=== PATIENT | female | born 1950 | race Caucasian/White ===

== ENCOUNTER → 2017-08-18 | Outpatient (CLI) | payer MEDICARE ==
[~2017-08-18] MED LIST: ALBUTEROL SULF8.5 GM; ALBUTEROL0.63 MG/3; ALBUTEROL2.5 MG/3 M INH; ALDACTONE25 MG PO; AMBIEN5 MG PO; AMIODARONE HCL200 MG PO; AMLODIPINE BESYL5 MG PO; ASPIR 8181 MG PO; ASPIRIN81 MG PO; AUGMENTIN 875-1 EACH PO; BACTRIM DS TAB1 EACH PO; CEFDINIR125 MG/5 M; CEFTIN250 MG PO; CEFTIN250 MG/5 M PO; COLON CLENZ; COREG12.5 MG PO; COREG25 MG PO; DICYCLOMINE HCL20 MG PO; DOXAZOSIN MESYLA4 MG PO; ELIQUIS PO; FUROSEMIDE40 MG PO; HYDRALAZINE HCL25 MG PO; HYDROCHLOROTHIA25 MG PO; HYDROCODON-ACE1 EA11 PO; IMDUR60 MG PO; ISOSORBIDE MONO20 MG PO; LACTULOSE20 GM/30 M PO; LASIX40 MG PO; LEVAQUIN250 MG PO; LEVOFLOXACIN500 MG PO; LIPITOR20 MG PO; LISINOPRIL10 MG PO; LISINOPRIL5 MG PO; MECLIZINE HCL12.5 MG PO; MELATONIN3 MG PO; METOLAZONE5 MG PO; METOPROLOL TAR100 MG PO; MINOCYCLINE HC100 M1 PO; NICODERM CQ1 EAC1 TOP; OS-CAL 500+D T1 EACH PO; PANTOPRAZOLE SO40 MG PO; PHENERGAN PO; PLAVIX75 MG PO; PREDNISONE10 MG PO; PREDNISONE20 MG PO; PROAIR HFA INH8.5 GM INH; RENAGEL800 MG PO; RENAL CAPS SOFTG1 MG PO; RENAL VITAMIN PO; RENVELA0.8 GM PO; SENNA LAX8.6 MG PO; SENNA PLUS TAB1 EACH PO; SIMVASTATIN40 MG PO; SPIRIVA18 MCG INH; SUCRALFATE1 GM PO; SYMBICORT 16010.2 GM; TRAZODONE HCL50 MG PO; TRIPHROCAPS SOFT1 MG PO; TUSSICAPS PO; TYLENOL WITH C1 EACH PO; ULTRAM50 MG PO; WARFARIN SODIUM1 MG PO; XOPENEX HFA15 GM NEB; ZOFRAN ODT4 MG PO; [UNRECOGNIZED DRUG - CODE] INH; zofran PO
--- NOTE | 2017-08-18 14:52 | Diagnostic Imaging Report ---
PROCEDURE: Frontal and lateral views of the chest. COMPARISON: CT, CT CHEST WO, 06/10/2015, 17:54. [facility], DX, CHEST SINGLE (PORTABLE), 07/06/2016, 5:26. INDICATIONS: CHEST TIGHTNESS, COUGH FINDINGS: Lines/tubes: None. In the lower lateral left hemithorax with pacemaker lead projecting on the mid sternum on the lateral view, unchanged in position. Lungs: Interval decrease in bilateral patchy airspace disease. Underlying diffuse coarsening of the pulmonary interstitium associated with mild patchy groundglass density is again observed. Pleura: Small right pleural effusion has decreased since the prior examination. There is no pneumothorax. Heart and mediastinum: The cardiac silhouette is mildly enlarged. Median sternotomy wires again observed. Bones: No acute bony abnormality. IMPRESSION: 1. Diffuse coarsening of the pulmonary interstitium suggestive of interstitial lung disease. Mild diffuse patchy groundglass density may represent superimposed pulmonary edema. Sae Hill M.D. Dictated by: Sae Hill M.D. on 08/18/2017 at 14:53 Electronically approved by: Sae Hill M.D. on 08/18/2017 at 14:53
== END ==
LOC: RAD 14:03
PROVIDERS: ATTEND Internal Medicine
DX: R05 Cough (principal)
CPT/HCPCS: 71046

== ENCOUNTER 2017-08-21 20:22 | Inpatient (IN) | payer MEDICARE ==
[~2017-08-21] VITALS: Ht 170.2 cm; Wt 54.4 kg
[~2017-08-21 20:22] MED LIST changes: -CEFDINIR125 MG/5 M; -CEFTIN250 MG/5 M PO; -FUROSEMIDE40 MG PO; -SYMBICORT 16010.2 GM
--- OUTSIDE RECORDS SUMMARY | 2017-08-21 20:26 | XMS REPORT ---
[facility] Address Unknown Phone Unavailable Care Team Providers Care Pbx Teacher Name Role Phone DENNY MONTEMAYOR Unavailable Unavailable Problems This patient has no known problems. Allergies, Adverse Reactions, Alerts This patient has no known allergies or adverse reactions. Medications This patient has no known medications. Results Test Description Test Time Test Comments Text Results Atomic Results Result Comments CHEST 2 VIEWS [place] [address] Patient Name: PAO ARAIZA MR #: [id number] : 1950 Age/Sex: 67/F Req #: [id number] Adm Physician: Ordered by: DENNY MONTEMAYOR MD Report #: [id number] Location: RAD Room/Bed: Procedure: [id number] DX/CHEST 2 VIEWS Exam Date: 08/18/17 Exam Time: 1415 REPORT STATUS: Signed PROCEDURE: Frontal and lateral views of the chest. COMPARISON: CT, CT CHEST WO, 06/10/2015, 17:54. [facility], DX, CHEST SINGLE (PORTABLE), 07/06/2016, 5:26. INDICATIONS: CHEST TIGHTNESS, COUGH FINDINGS: Lines/tubes: None. In the lower lateral left hemithorax with pacemaker lead projecting on the mid sternum on the lateral view, unchanged in position. Lungs: Interval decrease in bilateral patchy airspace disease. Underlying diffuse coarsening of the pulmonary interstitium associated with mild patchy groundglass density is again observed. Pleura: Small right pleural effusion has decreased since the prior examination. There is no pneumothorax. Heart and mediastinum: The cardiac silhouette is mildly enlarged. Median sternotomy wires again observed. Bones: No acute bony abnormality. IMPRESSION: 1. Diffuse coarsening of the pulmonary interstitium suggestive of interstitial lung disease. Mild diffuse patchy groundglass density may represent superimposed pulmonary edema. Sae Valadez M.D. Dictated by: Sae Valadez M.D. on 08/18/2017 at 14:53 Electronically approved by: Sae Valadez M.D. on 08/18/2017 at 14:53 Dictated By: CONCEPCIÓN VALADEZ MD, MD [id number] COPY TO: DENNY MONTEMAYOR MD
[2017-08-21] MEDS ORDERED: MECLIZINE HCL12.5 MG PO (21:14)
[2017-08-21] MEDS ORDERED: MELATONIN3 MG PO (21:14)
[2017-08-21] MEDS ORDERED: PANTOPRAZOLE SO40 MG PO (21:14)
[2017-08-21] MEDS ORDERED: FUROSEMIDE40 MG PO (21:14)
[2017-08-21] MEDS ORDERED: CEFDINIR125 MG/5 M (21:14)
[2017-08-21] MEDS ORDERED: SPIRIVA18 MCG INH (21:14)
[2017-08-21] MEDS ORDERED: SYMBICORT 16010.2 GM (21:14)
[2017-08-21] MEDS ORDERED: ALBUTEROL/IPRATROPIUM 3 ML NEB NEB ONE (21:15)
[2017-08-21] MEDS ORDERED: AZITHROMYCIN 500MG/NS 250 ML 250 ML IV ONE (22:00)
[2017-08-21] MEDS ORDERED: CEFTRIAXONE SOD 1 GM VIAL IV ONE (22:00)
[2017-08-21] MEDS ORDERED: ACETAMINOPHEN 325 MG TAB PO ONE (22:30)
[2017-08-21] MEDS ORDERED: METHYLPREDNISOLONE SOD SUCC 125 MG/2ML VIAL IV ONE (22:30)
[2017-08-21] MEDS ORDERED: AZITHROMYCIN 500MG/NS 250 ML 250 ML IV SCH (23:00)
[2017-08-21 23:50] VITALS: BP 146/61
[2017-08-22 01:46] VITALS: BP 146/61
[2017-08-22] MEDS: ALBUTEROL/IPRATROPIUM 3 ML NEB NEB SCH ×5 (02:30→20:15)
[2017-08-22 05:59] LABS: BASOPHILS % 0.2 % (0.0-1.0); HEMATOCRIT 26.2 % (34.2-44.1); HEMOGLOBIN 8.6 g/dL (12.0-16.0); LYMPHOCYTES # (AUTO) 0.2 (1.0-3.2); LYMPHOCYTES % 5.4 % (18.0-39.1); MEAN CORPUSCULAR HEMOGLOBIN 31.4 pg (28-32); MEAN CORPUSCULAR HGB CONC 32.8 g/dL (31-35); MEAN CORPUSCULAR VOLUME 95.6 fL (81-99); MONOCYTES # (AUTO) 0.2 (0.2-0.8); MONOCYTES % 3.7 % (4.4-11.3); NEUTROPHILS # (AUTO) 3.7 (2.1-6.9); NEUTROPHILS % 90.2 % (38.7-80.0); PLATELET COUNT 118 x10e3/uL (140-360); RED BLOOD COUNT 2.74 x10e6/uL (3.6-5.1); RED CELL DISTRIBUTION WIDTH 16.7 % (11.7-14.4)
[2017-08-22] MEDS ORDERED: METHYLPREDNISOLONE SOD SUCC 125 MG/2ML VIAL IV SCH (06:00)
[2017-08-22 06:05] VITALS: BP 150/64
[2017-08-22 06:16] LABS: ANION GAP 17.9 mmol/L (8-16); CALCIUM 9.1 mg/dL (8.4-10.2); CREATININE, SERUM 4.28 mg/dL (0.57-1.11); POTASSIUM 3.9 mmol/L (3.5-5.1)
[2017-08-22 10:00] VITALS: BP 150/64
[2017-08-22 12:00] VITALS: BP 138/54
[2017-08-22] MEDS: MECLIZINE HCL 12.5 MG TAB PO SCH ×2 (14:19→21:18)
[2017-08-22] MEDS: AMIODARONE HCL 200 MG TAB PO SCH (14:19)
[2017-08-22] MEDS: HYDRALAZINE HCL 25 MG TAB PO SCH ×2 (14:19→21:18)
[2017-08-22] MEDS: AMLODIPINE BESYLATE 5 MG TAB PO SCH (14:20)
--- NOTE | 2017-08-22 14:29 | Diagnostic Imaging Report ---
EXAMINATION: CHEST SINGLE (NOT PORTABLE) INDICATION: CHF. COPD exacerbation. COMPARISON: 07/06/16. FINDINGS: TUBES and LINES: None. Left-sided AICD, unchanged. LUNGS: Diffuse bilateral patchy airspace disease is observed, unchanged. PLEURA: No pneumothorax. Bilateral small pleural effusions, unchanged. HEART AND MEDIASTINUM: The cardiac silhouette remains enlarged. Median sternotomy wires. BONES AND SOFT TISSUES: No acute osseous lesion. Soft tissues are unremarkable. UPPER ABDOMEN: No free air under the diaphragm. IMPRESSION: No significant interval change in bilateral airspace disease suggestive of pulmonary edema with possible superimposed infection in the proper clinical setting. Signed by: Dr. Sae Hill M.D. on 08/22/2017 2:25 PM
[2017-08-22] MEDS ORDERED: BUDESONIDE/FORMOTEROL 160/4.5MCG INHALER INH SCH (15:00)
[2017-08-22 16:00] VITALS: BP 142/62
[2017-08-22] MEDS ORDERED: INSULIN REGULAR, HUMAN 100 UNIT/1 ML 3ML VIAL SQ SCH (16:30)
[2017-08-22] MEDS: CARVEDILOL 12.5 MG TAB PO SCH (17:03)
[2017-08-22] MEDS: SEVELAMER CARBONATE 800 MG TAB PO SCH (17:03)
--- NOTE | 2017-08-22 17:36 | Consultation ---
DATE OF CONSULTATION: August 22, 2017 PULMONARY MEDICINE CONSULTATION REFERRING PHYSICIAN: Dr. Pyle REASON FOR REFERRAL: Persistent abnormal chest radiography. HISTORY: Ms. Carrillo is a pleasant, 67-year-old female with persistent chest x-ray abnormalities. The patient presented to the emergency room on August 21, 2017. The patient complained of shortness of breath. The patient was having an outpatient evaluation which included x-rays showing possible fluid overload and possible pneumonia. The patient has recently been getting dialysis. She has chronic debilities getting dialysis more than 3 times a week when needed. The patient recently has not been able to get her fluid pulled off to dry weight over the last couple of weeks as well as she is having chronic difficulty getting dialysis more than once a week due to exquisite pain. At this point, the patient had chest x-ray showing fluid overload plus possible pneumonia pattern. She is admitted. Patient is on chronic home oxygen at 2 L per minute via nasal cannula. Patient is actively smoking. There is no history of any asthma. There are allergy symptoms on 50% of days. Home breathing medications include nebulizer, Spiriva, Atrovent possibly. Patient's exercise tolerance is 2 to 3 homes' distance where she is limited by leg exhaustion. She gets out of the house about 4 days a week. Patient with BNP level a couple of months ago greater than 5000, although BNP level is not repeated this time. I am consulted due to persistence of opacities and failure of outpatient therapy. PAST MEDICAL HISTORY 1. Chronic systolic and diastolic heart failure. 2. May 26, 2016, echo with 30% to 35% LVEF, aortic valve area 1.9 cm sq, bioprosthetic MVR well seated, RVSP 54 mmHg, IVC with poor inspiratory collapse. 3. End-stage renal disease on hemodialysis for 2 years. 4. Pulmonary hypertension. 5. Atrial fibrillation. 6. Hypertension. 7. Anemia secondary to CKD. 8. COPD. 9. Peripheral vascular disease. 10. Osteoporosis. 11. Major depressive disorder. 12. 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 13. AICD placement to left flank. 14. Lumbar spine surgery. 15. Renal artery stent placement. 16. Coronary artery stents in 2009. 17. Right heart catheterization at some point. SOCIAL HISTORY: She is and lives with her . 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 No alcohol. No drugs. She smoked from age 14 to age 67 one-half pack per day. FAMILY HISTORY: Noncontributory to this. REVIEW OF SYSTEMS GENERAL: No weight changes, although she is underweight. HEENT: No dry mouth. IMMUNOLOGIC: No lupus. No connective tissue disease. PULMONARY: No hemoptysis. CARDIOVASCULAR: No recent PA. GI: No constipation. : No blood in the urine. PSYCHIATRIC: No bipolar known. MUSCULOSKELETAL: Mild arthritis. NEUROLOGIC: No seizures. DERMATOLOGIC: No rash. PHYSICAL EXAMINATION VITALS: Afebrile. Vital signs noted per electronic record. GENERAL: No acute distress. Alert and calm. HEENT: Normocephalic and atraumatic. NECK: Supple. Throat is midline. LUNGS: Bilateral air entry, a few rhonchi and a few rales, no discrete wheezes, moderate to good air entry. CARDIOVASCULAR: S1 and S2. No murmurs, rubs or gallops. ABDOMEN: Soft and nontender. EXTREMITIES: No clubbing. No cyanosis. There is no edema. INTEGUMENT: No rash. No purpura. LABS: 3.9 potassium, 26 BUN, creatinine 4.3, 29 bicarbonate, 4.0 white count, 26 hematocrit, 118 platelets. IMPRESSION AND PLAN 1. Abnormal chest radiography, fluid overload. 2. Abnormal chest radiography, possible pneumonia. 3. Reported chronic obstructive pulmonary disease with exacerbation. 4. Reported pulmonary hypertension. This is also suggested by echocardiogram in the past. The patient's pulmonary hypertension may be multifactorial. 5. History of bioprosthetic mitral valve replacement. 6. End-stage renal disease. 7. Atrial fibrillation. 8. Hypertension. 9. Peripheral vascular disease. 10. History of cerebrovascular accident in June 2013. 11. Moderate allergies. 12. Other history as above. Agree to admit her. Nephrology to discuss with the patient ways to maximize fluid negative balance. Get her back to dry weight as feasible. I need to discuss with the patient as she does not recall who is following the pulmonary hypertension as she may be required for right heart catheterization or repeat echocardiogram. Patient is recommended for smoking cessation as feasible. Continue some bronchodilators at this time. It would be useful to have her PFTs with her complex cardiopulmonary condition. However, she says her last PFTs were at [facility]. Will follow up closely. I thank you very much, Dr. Pyle and Dr. Goodman, for allowing me the chance to participate in the care of Ms. Carrillo. Do not hesitate to contact me if I can help in any way. Job#: [id number]
[2017-08-22] MEDS ORDERED: EPOETIN ALFA 10000 UNIT/ML VIAL SC ONE (19:00)
--- NOTE | 2017-08-22 19:05 | History and Physical ---
HISTORY OF PRESENT ILLNESS: This is a 67-year-old female with past medical history positive for end-stage renal disease on dialysis, history of CHF, history of anemia of chronic disease, history of implantable cardiac defibrillator, and history of aortic valve replacement, which is a porcine aortic valve replacement according to the patient. She came to the emergency room complaining of increasing episodes of shortness of breath, cough and fever. She was diagnosed with pneumonia and admitted to the hospital. Also, she was diagnosed with CHF. REVIEW OF SYSTEMS CARDIOVASCULAR: No chest pain or palpitations. RESPIRATORY: She did have shortness of breath, which has resolved. She had severe cough. She did have fever. GENITOURINARY: No urinary frequency and no dysuria. GASTROINTESTINAL: No nausea, vomiting or diarrhea. ALLERGIES: ALLERGIC TO DILAUDID, MORPHINE, LORAZEPAM. PAST MEDICAL HISTORY 1. End-stage renal disease on dialysis. 2. History of chronic systolic CHF. 3. History of anemia of chronic disease. 4. Status post implantable cardiac defibrillator. 5. History of COPD. 6. History of porcine aortic valve replacement. PHYSICAL EXAMINATION VITAL SIGNS: Blood pressure 138/54, temperature 98.9, heart rate 91 per minute, respiratory rate 21 per minute. Oxygen saturation 97%. HEART: Regular rhythm. Normal S1 and S2 sounds. LUNGS: Clear bilaterally. ABDOMEN: Soft. EXTREMITIES: No evidence of cyanosis, edema or trauma. LABORATORY DATA: On the blood work, we have BMP with sodium 137, potassium 3.9, chloride 94, CO2 29, BUN 26, creatinine 4.28, glucose 331. On the CBC, white blood count 4.05, hemoglobin 8.6, hematocrit 26.2, platelet count 118,000. Chest x-ray was done in the emergency room. The preliminary report shows bilateral CHF and possible pneumonia. The EKG was done and showed normal sinus rhythm. No evidence of any ST-segment elevation or depression. She has T-wave inversions in aVL, V1 and V2. FINAL IMPRESSION 1. Pneumonia. 2. Kppcr-[id number]-[id number] chronic congestive heart failure. 3. Chronic obstructive pulmonary disease exacerbation. 4. End-stage renal disease on dialysis. 5. Anemia of chronic disease. 6. Status post implantable cardiac defibrillator. 7. Aortic stenosis status post aortic valve replacement with a porcine aortic valve. PLAN OF TREATMENT: Continue albuterol and Atrovent q.4 h., Zithromax 250 mg IV piggyback daily, ceftriaxone 1 gram IV piggyback daily, methylprednisolone 60 mg IV q.8 h. We are going to resume all the home medications that she has been taking, which include Tylenol No. 3 one tablet every 4 hours as needed for pain or fever. Continue amiodarone 100 mg twice a day, amlodipine 5 mg twice a day, Lipitor 20 mg daily, Symbicort 150 per 4.5 mcg 1 inhalation twice a day. Continue with furosemide 40 mg daily, hydralazine 50 mg 3 times a day, isosorbide mononitrate 60 mg daily, meclizine 12.5 mg 3 times a day as needed, melatonin 3 mg at bedtime. We are going to discontinue the Solu-Medrol because the patient is already on prednisone, plus we do not want to get too much fluid in this patient who already has end-stage renal disease. Continue Protonix 40 mg daily, prednisone 40 mg daily, Renvela 800 mg 3 times a day, Spiriva 1 inhalation daily, trazodone 100 mg at bedtime, Coreg 25 mg twice a day, folic acid, vitamin B and C complex 1 tablet daily. Consultations are going to be the following: Dr. Prakash for cardiology who is her jockey valet, Dr. Bryson who is her shipper and receiving, and Dr. Mauricio Pappas, maintenance team leader. We will order an EKG, troponins q.8 h. times 3, and a chest x-ray also. Job#: [id number]
[2017-08-22 19:15] VITALS: BP 134/57
[2017-08-22] MEDS: AZITHROMYCIN 500MG/NS 250 ML 250 ML IV SCH (21:18)
[2017-08-22] MEDS: ATORVASTATIN 20 MG TAB PO SCH (21:18)
[2017-08-22] MEDS: MELATONIN 3 MG TAB PO SCH (21:18)
[2017-08-22] MEDS: INSULIN REGULAR, HUMAN 100 UNIT/1 ML 3ML VIAL SQ SCH (21:18)
[2017-08-22] MEDS: TRAZODONE HCL 50 MG TAB PO SCH (21:18)
--- NOTE | 2017-08-22 22:43 | Consultation ---
DATE OF CONSULTATION: August 22, 2017 REASON FOR CONSULT: ESRD. This is a 67-year-old female with multiple admissions, who was admitted with shortness of breath. The patient's chest x-ray demonstrated possible pneumonia. Last dialysis was on Wednesday. Chest x-ray also demonstrated increased fluid. Patient is on home O2 at 2 L. PAST MEDICAL HISTORY 1. Chronic systolic and diastolic heart failure. 2. Echocardiogram, EF 30%-35% left ventricular ejection fraction, aortic valve area 1.9. 3. ESRD, on dialysis at [facility] for last 2 years. 4. Atrial fibrillation. 5. Pulmonary hypertension. 6. COPD. 7. Anemia of chronic disease. 8. Osteoporosis. 9. Peripheral vascular disease. 10. Depression. 11. Renal artery stent placement. 12. Lumbar spine surgery. 13. AICD placement. 14. CVA in June 2013. 15. CAD, stent, 2009. SOCIAL HISTORY: Lives with her . Retired for 20 years. No drugs. FAMILY HISTORY: Noncontributory. REVIEW OF SYSTEMS: No nausea, no vomiting, no constipation, no diarrhea, cough, no shortness of breath, no chest pain, no blood in stool, no burning in the urine. Basically otherwise negative. PHYSICAL EXAM VITAL SIGNS: Afebrile. HEENT: Pupils equal, react to light and accommodation. LUNGS: Decreased air entry. No rales, no rhonchi, no wheezes. CARDIAC: Regular rate and rhythm. No S3, S4. ABDOMEN: Nontender, nondistended. No hepatomegaly, splenomegaly. EXTREMITIES: No cyanosis, clubbing, edema. LABS: Creatinine 4.3, bicarbonate 29. White cell 4, hematocrit 26. ASSESSMENT AND PLAN 1. Anemia of chronic disease. Will start the patient on Epogen and IV dialysis. 2. End-stage renal disease with fluid overload. Will ultrafiltrate her tomorrow then dialyze her per schedule. 3. Chronic obstructive pulmonary disease. Continue following with Dr. Lindsay. 4. Pulmonary hypertension. No changes. 5. Atrial fibrillation. Currently stable. No rales, no tachycardia. Job#: [id number] CQ
[2017-08-22] MEDS ORDERED: CEFTRIAXONE SOD 1 GM VIAL IV SCH (23:00)
[2017-08-23] VITALS (10 sets, daily range): BP systolic 114–158; BP diastolic 51–91
[2017-08-23] MEDS: ALBUTEROL/IPRATROPIUM 3 ML NEB NEB SCH ×7 (00:15→23:00)
[2017-08-23] MEDS: ASPIRIN 81 MG CHEW TAB PO SCH ×2 (04:45→18:58)
--- NOTE | 2017-08-23 05:21 | Consultation ---
DATE OF CONSULTATION: August 23, 2017 CARDIOLOGY CONSULTATION REASON FOR CONSULTATION: Shortness of breath. HISTORY OF PRESENT ILLNESS: Ms. Carrillo is a pleasant 67-year-old woman known to our service. Followed in the clinic by Dr. Prakash. She has a history significant for end-stage renal disease, chronic systolic heart failure, anemia of chronic disease, COPD, status post ICD, status post mitral prosthetic valve replacement, paroxysmal atrial fibrillation, on anticoagulation with Eliquis, and renal stenosis, status post prior stents, carotid disease, status post right carotid stent. She presents with worsening shortness of breath. Findings concerning for pneumonia. She is admitted for antibiotic therapy. REVIEW OF SYSTEMS: A 12-system reviewed and negative except for as noted above. ALLERGIES: HYDROMORPHONE, LORAZEPAM AND MORPHINE. PAST MEDICAL HISTORY: As per HPI. SOCIAL HISTORY: Smoker. FAMILY HISTORY: Noncontributory. PHYSICAL EXAMINATION VITALS: Temperature 98 degrees, heart rate 73, respiratory rate 17, blood pressure 114/51, and O2 sat 96% on 2 L by nasal cannula. GENERAL: No acute distress. Alert. NECK: No JVD. CHEST: Clear to auscultation. CARDIOVASCULAR: Regular rate and rhythm. Normal S1 and S2. Systolic ejection murmur. ABDOMEN: Soft. EXTREMITIES: No edema. CARDIOVASCULAR MEDICATIONS: Reviewed. 1. Ceftriaxone. 2. Hydralazine 50 mg t.i.d. 3. Atorvastatin 20 mg at bedtime. 4. Azithromycin. 5. Carvedilol 25 mg b.i.d. 6. Amiodarone 100 mg b.i.d. 7. Prednisone 40 mg daily. 8. Furosemide 40 mg p.o. daily. 9. Isosorbide mononitrate 60 mg daily. STUDIES: Reviewed. White blood cells 4, hemoglobin 8.6 and platelets 118,000. Creatinine 4.2, potassium 3.9, bicarbonate 29. Troponin I 0.07 and then 0.063. Blood cultures no growth times 24 hours. Chest x-ray with no significant interval change and bilateral airspace disease, which is suggestive of pulmonary edema with possible superimposed infection in the setting. ASSESSMENT 1. Suspected chronic obstructive pulmonary disease exacerbation versus pneumonia versus less likely pulmonary edema. 2. Ocnda-ft-gtdlgce systolic heart failure. 3. End-stage renal disease, on dialysis. 4. Anemia of chronic disease. 5. Status post automatic implanted cardioverter defibrillator. 6. Status post mitral valve replacement. 7. History of peripheral arterial disease, status post renal stents and carotid stents. RECOMMENDATIONS 1. Resume home CV medications. 2. Resume Eliquis if okay with rest of treating physicians and no plans for procedures. 3. Consider adding aspirin 81 mg daily for history of CAD. 4. Volume management per nephrology. Job#: [id number] KAYA
[2017-08-23 06:20] LABS: BASOPHILS % 0.1 % (0.0-1.0); HEMATOCRIT 24.8 % (34.2-44.1); HEMOGLOBIN 8.3 g/dL (12.0-16.0); LYMPHOCYTES # (AUTO) 0.5 (1.0-3.2); LYMPHOCYTES % 4.2 % (18.0-39.1); MEAN CORPUSCULAR HEMOGLOBIN 31.1 pg (28-32); MEAN CORPUSCULAR HGB CONC 33.5 g/dL (31-35); MEAN CORPUSCULAR VOLUME 92.9 fL (81-99); MONOCYTES # (AUTO) 0.7 (0.2-0.8); MONOCYTES % 5.6 % (4.4-11.3); NEUTROPHILS # (AUTO) 10.6 (2.1-6.9); NEUTROPHILS % 89.5 % (38.7-80.0); PLATELET COUNT 163 x10e3/uL (140-360); RED BLOOD COUNT 2.67 x10e6/uL (3.6-5.1); RED CELL DISTRIBUTION WIDTH 16.6 % (11.7-14.4)
[2017-08-23 06:29] LABS: INR 1.08; PROTHROMBIN TIME 13.2 seconds (11.9-14.5)
[2017-08-23 06:37] LABS: % IRON SATURATION 80 % (15-50); ALANINE AMINOTRANSFERASE 8 IU/L (0-55); ALBUMIN 2.9 g/dL (3.5-5.0); ALBUMIN/GLOBULIN RATIO 0.8 (0.8-2.0); ALKALINE PHOSPHATASE 124 IU/L (40-150); ANION GAP 18.1 mmol/L (8-16); BLOOD UREA NITROGEN 60 mg/dL (7-26); BUN/CREATININE RATIO 9 (6-25); CALCIUM 9.2 mg/dL (8.4-10.2); CARBON DIOXIDE 27 mmol/L (22-29); CHLORIDE 99 mmol/L (98-107); CREATININE, SERUM 6.47 mg/dL (0.57-1.11); EST GLOMERULAR FILTRATION RATE 6 ML/MIN (60-); GLUCOSE 136 mg/dL (74-118); IRON 134 ug/dL (50-170); POTASSIUM 4.1 mmol/L (3.5-5.1); SODIUM 140 mmol/L (136-145); TOTAL IRON BINDING CAPACITY 168 ug/dL (261-478); TRANSFERRIN 120 mg/dL (180-382)
--- NOTE | 2017-08-23 06:46 | Diagnostic Imaging Report ---
EXAMINATION: CHEST SINGLE (PORTABLE) INDICATION: COPD and CHF exacerbation COMPARISON: 08/22/2017 FINDINGS: TUBES and LINES: AICD is intact. LUNGS: There is evidence of hyperinflation of the lungs. There is perihilar interstitial opacities, consistent with interstitial edema. PLEURA: Small right pleural effusion. HEART AND MEDIASTINUM: Cardiac size is moderately enlarged. There are atherosclerotic calcifications within the aorta. Postsurgical changes related to CABG procedure with midline sternotomy wires intact. BONES AND SOFT TISSUES: No acute osseous lesion. Soft tissues are unremarkable. UPPER ABDOMEN: No free air under the diaphragm. IMPRESSION: Recurrent cardiogenic pulmonary edema with right pleural effusion. Signed by: Dr. Gregorio Huertas M.D. on 08/23/2017 6:43 AM
[2017-08-23 07:02] LABS: THYROID STIMULATING HORMONE 0.149 uIU/mL (0.350-4.940)
[2017-08-23 07:13] LABS: FERRITIN > 2000.00 ng/mL (4.63-204.00)
[2017-08-23] MEDS: INSULIN REGULAR, HUMAN 100 UNIT/1 ML 3ML VIAL SQ SCH ×4 (07:30→20:22)
[2017-08-23 07:39] LABS: ANISOCYTOSIS SLIGHT; HYPOCHROMASIA SLIGHT; LYMPHOCYTES % (MANUAL) 6 % (19-48); MONOCYTES % (MANUAL) 6 % (3.4-9.0); NEUTROPHILS % (MANUAL) 88 % (40-74); POIKILOCYTOSIS SLIGHT
[2017-08-23 07:40] LABS: PLATELET ESTIMATE ADEQUATE; PLATELET MORPHOLOGY COMMENT NORMAL; RBC MORPHOLOGY COMMENT NORMAL
[2017-08-23] MEDS: TIOTROPIUM 18 MCG INH POWDER INH SCH (08:00)
[2017-08-23] MEDS: BUDESONIDE/FORMOTEROL 160/4.5MCG INHALER INH SCH (08:00)
[2017-08-23] MEDS: HYDRALAZINE HCL 25 MG TAB PO SCH ×4 (09:00→20:41)
[2017-08-23] MEDS: AMLODIPINE BESYLATE 5 MG TAB PO SCH ×2 (09:00→18:59)
[2017-08-23] MEDS: PANTOPRAZOLE SOD 40 MG TABEC PO SCH (09:00)
[2017-08-23] MEDS ORDERED: PREDNISONE 20 MG TAB PO SCH (09:00)
[2017-08-23] MEDS: AMIODARONE HCL 200 MG TAB PO SCH ×2 (09:00→18:59)
[2017-08-23] MEDS: FUROSEMIDE 40 MG TAB PO SCH (09:00)
[2017-08-23] MEDS ORDERED: APIXAB 2.5 MG TABLET PO SCH (09:00)
[2017-08-23] MEDS: SEVELAMER CARBONATE 800 MG TAB PO SCH ×3 (09:01→18:59)
[2017-08-23] MEDS: CARVEDILOL 12.5 MG TAB PO SCH ×2 (09:01→19:00)
[2017-08-23] MEDS: APIXAB 2.5 MG TABLET PO SCH ×2 (09:45→18:58)
[2017-08-23] MEDS ORDERED: CEFEPIME HCL 1 GM VIAL IV SCH (12:30)
--- NOTE | 2017-08-23 13:24 | Progress Note ---
DATE: August 23, 2017 PULMONARY MEDICINE PROGRESS NOTE SUBJECTIVE: Mrs. Carrillo was seen and examined at bedside. She continues to have slow progress. She is getting ready for dialysis today. She was told by her nurse that she is 2 kg above her dry weight despite having some difficulties last week at dialysis. I explained to the patient that her chest x-ray continues to show moderate to large opacities; yet, the patient looks relatively well. Therefore, that is why consideration is that there could be a lot of fluid overload in the lungs versus atypical and more indolent pathogens. Patient overall eating. No other acute respiratory distress episodes. REVIEW OF SYSTEMS: No bleeding, no rash. OBJECTIVE VITAL SIGNS: Afebrile. Vital signs noted per electronic record. GENERALLY: No acute distress, alert and calm. HEENT: Normocephalic, atraumatic. NECK: Supple. Throat midline. LUNGS: Bilateral air entry, a few rhonchi. CARDIOVASCULAR: S1 and S2. No murmurs, rubs or gallops. ABDOMINAL: Soft, nontender. EXTREMITIES: No clubbing, no cyanosis. There is no edema. INTEGUMENT: No rash. No purpura. LABS: BNP 8605. Ferritin level greater than 2000. TSH is low. BUN 60, creatinine 6.5. White count 12, hematocrit 25, platelets 163. IMPRESSION AND PLAN 1. Bilateral lung opacities, moderate to large. Treat for fluid overload. 2. Bilateral lung opacities, treat for pneumonitis. 3. End-stage renal disease. 4. History of cardiomyopathy. 5. Reported chronic obstructive pulmonary disease with exacerbation. 6. Pulmonary hypertension, history of mitral valve repair/replacement. Continue current treatment at this time. Any repeat echo at this time per Cardiology. Patient should eventually get all records in to make sure she has an updated echo. Therefore, consideration for right heart catheterization can be made if appropriate. Furthermore, continue IV antibiotics, which are currently vancomycin, cefepime and some atypical pneumonia coverage. Continue dialysis, try to get dry balance. Will follow along closely. Patient is in guarded condition. Job#: [id number] EV
[2017-08-23] MEDS ORDERED: SODIUM CHLORIDE 0.9% 250ML 500 ML IV PRN (14:00)
[2017-08-23] MEDS ORDERED: MANNITOL 25% 12.5GM/50 ML VIAL IV PRN (14:00)
[2017-08-23] MEDS ORDERED: ALBUMIN HUMAN 12.5GM / 50ML IV PRN (14:00)
[2017-08-23] MEDS ORDERED: SODIUM CHLORIDE 0.9% 1000ML 2,000 ML IV PRN (14:00)
[2017-08-23] MEDS: FOLIC ACID/CYANOCOB/PYRIDOXINE TAB PO SCH (18:59)
[2017-08-23] MEDS: ISOSORBIDE MONONITRATE 20 MG TAB PO SCH (18:59)
[2017-08-23] MEDS: MELATONIN 3 MG TAB PO SCH (20:41)
[2017-08-23] MEDS: TRAZODONE HCL 50 MG TAB PO SCH (20:41)
[2017-08-23] MEDS: ATORVASTATIN 20 MG TAB PO SCH (20:41)
[2017-08-23] MEDS: ACETAMINOPHEN/CODEINE 300MG - 30MG TAB PO PRN (20:41)
[2017-08-23] MEDS: MECLIZINE HCL 12.5 MG TAB PO SCH (21:00)
[2017-08-23] MEDS: AZITHROMYCIN 500MG/NS 250 ML 250 ML IV SCH (22:37)
[2017-08-24] VITALS (7 sets, daily range): BP systolic 104–136; BP diastolic 36–57
[2017-08-24] MEDS: ALBUTEROL/IPRATROPIUM 3 ML NEB NEB SCH ×6 (03:00→23:00)
[2017-08-24] MEDS: TIOTROPIUM 18 MCG INH POWDER INH SCH (06:00)
[2017-08-24] MEDS: BUDESONIDE/FORMOTEROL 160/4.5MCG INHALER INH SCH (06:00)
[2017-08-24 06:25] LABS: BASOPHILS % 0.3 % (0.0-1.0); EOSINOPHILS # (AUTO) 0.3 (0.0-0.4); EOSINOPHILS % 2.4 % (0.0-6.0); HEMATOCRIT 26.8 % (34.2-44.1); HEMOGLOBIN 8.7 g/dL (12.0-16.0); LYMPHOCYTES # (AUTO) 1.3 (1.0-3.2); LYMPHOCYTES % 12.8 % (18.0-39.1); MEAN CORPUSCULAR HEMOGLOBIN 31.4 pg (28-32); MEAN CORPUSCULAR HGB CONC 32.5 g/dL (31-35); MEAN CORPUSCULAR VOLUME 96.8 fL (81-99); MONOCYTES # (AUTO) 0.7 (0.2-0.8); MONOCYTES % 6.2 % (4.4-11.3); NEUTROPHILS % 76.9 % (38.7-80.0); PLATELET COUNT 252 x10e3/uL (140-360); RED BLOOD COUNT 2.77 x10e6/uL (3.6-5.1); RED CELL DISTRIBUTION WIDTH 17.1 % (11.7-14.4)
[2017-08-24 06:40] LABS: ANION GAP 19.9 mmol/L (8-16); CREATININE, SERUM 8.18 mg/dL (0.57-1.11); POTASSIUM 4.9 mmol/L (3.5-5.1)
[2017-08-24] MEDS: INSULIN REGULAR, HUMAN 100 UNIT/1 ML 3ML VIAL SQ SCH ×4 (07:30→20:40)
[2017-08-24] MEDS: CARVEDILOL 12.5 MG TAB PO SCH ×2 (08:00→18:20)
[2017-08-24] MEDS: SEVELAMER CARBONATE 800 MG TAB PO SCH ×3 (08:00→17:00)
[2017-08-24] MEDS: FUROSEMIDE 40 MG TAB PO SCH (09:00)
[2017-08-24] MEDS: APIXAB 2.5 MG TABLET PO SCH ×2 (09:00→17:00)
[2017-08-24] MEDS: HYDRALAZINE HCL 25 MG TAB PO SCH ×3 (09:00→21:50)
[2017-08-24] MEDS: ISOSORBIDE MONONITRATE 20 MG TAB PO SCH (09:00)
[2017-08-24] MEDS: ASPIRIN 81 MG CHEW TAB PO SCH (09:00)
[2017-08-24] MEDS: AMLODIPINE BESYLATE 5 MG TAB PO SCH ×2 (09:00→18:20)
[2017-08-24] MEDS: FOLIC ACID/CYANOCOB/PYRIDOXINE TAB PO SCH (09:00)
[2017-08-24] MEDS: MECLIZINE HCL 12.5 MG TAB PO SCH ×3 (09:00→21:00)
[2017-08-24] MEDS: AMIODARONE HCL 200 MG TAB PO SCH ×2 (09:00→17:26)
--- NOTE | 2017-08-24 11:47 | Progress Note ---
DATE: August 24, 2017 CARDIOLOGY PROGRESS NOTE SUBJECTIVE: The patient denies chest pain or shortness of breath. She was seen receiving hemodialysis. OBJECTIVE: VITAL SIGNS: Temperature 96.9 degrees, pulse 69, respiratory rate 20, blood pressure 136/52, oxygen saturation 98% on 2 liters nasal cannula. GENERAL: Awake, alert, cachectic, no acute distress. LUNGS: Clear to auscultation bilaterally. No wheezes or crackles. CARDIOVASCULAR: Normal rate, regular rhythm. Normal S1, S2. Systolic murmur. ABDOMEN: Soft. EXTREMITIES: No edema. CARDIAC MEDICATIONS 1. Hydralazine 50 mg p.o. t.i.d. 2. Atorvastatin 20 mg p.o. q.h.s. 3. Carvedilol 25 mg p.o. b.i.d. 4. Isosorbide mononitrate 60 mg p.o. daily. 5. Amlodipine 5 mg p.o. b.i.d. 6. Amiodarone 100 mg p.o. b.i.d. 7. Apixaban 2.5 mg p.o. b.i.d. LABS: WBC 10.43, hemoglobin 8.7, hematocrit 26.8, platelets 252. Sodium 140, potassium 4.9, chloride 97, CO2 of 28, BUN 87, creatinine 8.18. TELEMETRY: Normal sinus rhythm. IMPRESSION 1. Acute on chronic systolic heart failure. 2. Severe chronic obstructive pulmonary disease exacerbation versus pneumonia. 3. End-stage renal disease, on hemodialysis. 4. Anemia of chronic disease. 5. Systolic heart failure, status post automatic implantable cardioverter-defibrillator. 6. Status post bioprosthetic mitral valve replacement. 7. History of peripheral arterial disease with renal and carotid stents. RECOMMENDATIONS: Continue current cardiac medications. Continue Eliquis for CVA prophylaxis. Since patient remains significantly volume overloaded, we will discuss with renal additional ultrafiltration. Thank you for this consult. We will continue to follow. Job#: [id number] OLIVIA
[2017-08-24] MEDS: PREDNISONE 20 MG TAB PO SCH (17:26)
[2017-08-24] MEDS: VANCOMYCIN 1GM/NS 250 ML 250 ML IV SCH (17:27)
[2017-08-24] MEDS: PANTOPRAZOLE SOD 40 MG TABEC PO SCH (17:27)
[2017-08-24] MEDS: EPOETIN ALFA 10000 UNIT/ML VIAL SC SCH (17:28)
--- NOTE | 2017-08-24 17:57 | Progress Note ---
DATE: August 24, 2017 PULMONARY MEDICINE PROGRESS NOTE SUBJECTIVE: Ms. Carrillo was seen and examined at bedside. No acute respiratory distress episodes. The patient had 2.5 L removed yesterday with 2 hours of filtration. However, today, she is going to get full dialysis and clearance, and she tells me she is scheduled for 4 hours. This had gotten underway in the morning. I have discussed with the team, and tentatively we were hoping for a bronchoscopy; but due to the early dialysis, there was no availability. The patient was allowed to eat. The patient is without any new fevers or other symptoms. REVIEW OF SYSTEMS: No diarrhea. No bleeding. OBJECTIVE VITAL SIGNS: Afebrile. Vital signs noted per electronic record. GENERAL: No acute distress, alert and calm. HEENT: Normocephalic, atraumatic. NECK: Supple. Throat midline. LUNGS: Bilateral air entry, a few rhonchi. CARDIOVASCULAR: S1 and S2. No murmurs, rubs or gallops. ABDOMINAL: Soft, nontender. EXTREMITIES: No clubbing, no cyanosis. No edema. INTEGUMENT: No rash. No purpura. LABS: Reviewed per record. IMPRESSION AND PLAN 1. Abnormal chest radiography, moderate to large pulmonary infiltrates. 2. Abnormal chest radiography, possible fluid overload component. 3. End-stage renal disease. 4. Chronic obstructive pulmonary disease reported with exacerbation. 5. Mild weakness. At this time, will continue antibiotics for possible healthcare-associated organisms. The patient furthermore will be rescheduled for a bronchoscopy tomorrow tentatively at 2 p.m. During that, will assess the possibility of diffuse alveolar hemorrhage, amiodarone lung, chronic indolent infection such as MAC or histoplasmosis, among other considerations. Continue to mobilize the patient as possible after dialysis. Continue to try to get the patient to dry weight, which the patient informs me is close based on what she is understanding. We will follow along closely and continue bronchodilators. Job#: [id number]
[2017-08-24] MEDS: ACETAMINOPHEN/CODEINE 300MG - 30MG TAB PO PRN (20:00)
[2017-08-24] MEDS: TRAZODONE HCL 50 MG TAB PO SCH (20:00)
[2017-08-24] MEDS: MELATONIN 3 MG TAB PO SCH (20:00)
[2017-08-24] MEDS: ATORVASTATIN 20 MG TAB PO SCH (20:00)
[2017-08-24] MEDS: AZITHROMYCIN 500MG/NS 250 ML 250 ML IV SCH (22:30)
[2017-08-25] VITALS (10 sets, daily range): BP systolic 108–142; BP diastolic 46–56
[2017-08-25] MEDS: ALBUTEROL/IPRATROPIUM 3 ML NEB NEB SCH ×6 (03:00→23:00)
[2017-08-25] MEDS: TIOTROPIUM 18 MCG INH POWDER INH SCH (06:00)
[2017-08-25] MEDS: BUDESONIDE/FORMOTEROL 160/4.5MCG INHALER INH SCH (06:00)
[2017-08-25 06:22] LABS: BASOPHILS % 0.1 % (0.0-1.0); EOSINOPHILS % 0.1 % (0.0-6.0); HEMATOCRIT 29.6 % (34.2-44.1); HEMOGLOBIN 9.7 g/dL (12.0-16.0); LYMPHOCYTES # (AUTO) 0.5 (1.0-3.2); LYMPHOCYTES % 4.7 % (18.0-39.1); MEAN CORPUSCULAR HEMOGLOBIN 31.1 pg (28-32); MEAN CORPUSCULAR HGB CONC 32.8 g/dL (31-35); MEAN CORPUSCULAR VOLUME 94.9 fL (81-99); MONOCYTES # (AUTO) 0.6 (0.2-0.8); MONOCYTES % 5.5 % (4.4-11.3); NEUTROPHILS # (AUTO) 9.5 (2.1-6.9); NEUTROPHILS % 88.1 % (38.7-80.0); PLATELET COUNT 335 x10e3/uL (140-360); RED BLOOD COUNT 3.12 x10e6/uL (3.6-5.1); RED CELL DISTRIBUTION WIDTH 16.9 % (11.7-14.4)
--- NOTE | 2017-08-25 06:29 | Diagnostic Imaging Report ---
CHEST SINGLE (PORTABLE), 08/25/2017 6:00 AM Technique: CHEST SINGLE (PORTABLE) Comparison: 08/23/2017 Clinical history: \S\CHF and bilateral pneumonia with right pleural effusion \[id number] \S\0505 \S\Y Findings: See Impression Impression: 1. Stable cardiomegaly status post median sternotomy. Left chest wall ICD. 2. Persistent diffuse opacities, which could be due to edema and/or infection, with small effusions. Signed by: Dr Analisa Beverly MD on 08/25/2017 6:26 AM
[2017-08-25 06:41] LABS: ANION GAP 15.7 mmol/L (8-16); CALCIUM 8.1 mg/dL (8.4-10.2); POTASSIUM 4.7 mmol/L (3.5-5.1)
[2017-08-25] MEDS: INSULIN REGULAR, HUMAN 100 UNIT/1 ML 3ML VIAL SQ SCH ×4 (07:30→21:00)
[2017-08-25] MEDS: PANTOPRAZOLE SOD 40 MG TABEC PO SCH (07:30)
[2017-08-25] MEDS: SEVELAMER CARBONATE 800 MG TAB PO SCH ×3 (08:00→17:13)
[2017-08-25] MEDS: CARVEDILOL 12.5 MG TAB PO SCH ×2 (08:00→17:00)
[2017-08-25] MEDS: FUROSEMIDE 40 MG TAB PO SCH (08:42)
[2017-08-25] MEDS: AMLODIPINE BESYLATE 5 MG TAB PO SCH ×2 (08:42→17:00)
[2017-08-25] MEDS: APIXAB 2.5 MG TABLET PO SCH ×2 (08:42→17:13)
[2017-08-25] MEDS: ASPIRIN 81 MG CHEW TAB PO SCH (08:42)
[2017-08-25] MEDS: FOLIC ACID/CYANOCOB/PYRIDOXINE TAB PO SCH (08:42)
[2017-08-25] MEDS: ISOSORBIDE MONONITRATE 20 MG TAB PO SCH (08:42)
[2017-08-25] MEDS: HYDRALAZINE HCL 25 MG TAB PO SCH ×3 (08:42→21:49)
[2017-08-25] MEDS: MECLIZINE HCL 12.5 MG TAB PO SCH ×3 (08:42→21:49)
[2017-08-25] MEDS: AMIODARONE HCL 200 MG TAB PO SCH ×2 (08:42→17:00)
[2017-08-25] MEDS: PREDNISONE 20 MG TAB PO SCH (08:43)
[2017-08-25] MEDS ORDERED: EPINEPHRINE HCL INJ 1 MG/ML AMP ONE (11:07)
[2017-08-25] MEDS ORDERED: LIDOCAINE HCL 4% 50 ML BTL ONE (11:07)
[2017-08-25] MEDS ORDERED: OXYMETAZOLINE HCL 0.05% NAS 1 SPRAY BTL ONE (11:08)
[2017-08-25] MEDS ORDERED: LIDOCAINE HCL 2% 30 ML TUBE ONE (11:08)
[2017-08-25] MEDS ORDERED: ACETAMINOPHEN 1000 MG/100 ML 100 ML IV ONE (11:54)
[2017-08-25 13:50] LABS: BODY FLUID APPEARANCE TURBID; BODY FLUID COLOR COLORLESS
[2017-08-25 13:52] LABS: RBC,BODY FLUID 299 cells/uL; WBC,BODY FLUID 19 cells/uL
[2017-08-25 14:10] LABS: LYMPHOCYTES,BODY FLUID 1 %
[2017-08-25 14:14] LABS: NEUTROPHILS,BODY FLUID 3 %
--- NOTE | 2017-08-25 15:05 | Progress Note ---
DATE: August 25, 2017 PULMONARY MEDICINE PROGRESS NOTE SUBJECTIVE: Ms. Carrillo was seen and examined at bedside. She continues to have a lot of issues regarding early dyspnea. She has 100% oxygen saturation on 2 L per minute oxygen. The patient did get bronchoscopy today. She was able to recover afterwards. No unexpected findings were noted. Echocardiogram shows 30% to 35% LVEF with RVSP estimated at 42. Prosthetic mitral valve is in place. Blood cultures are no growth to date x72 hours. REVIEW OF SYSTEMS: No headache. No rash. OBJECTIVE VITAL SIGNS: Afebrile. Vital signs noted per electronic record. GENERAL: No acute distress, alert and calm. HEENT: Normocephalic, atraumatic. NECK: Supple. Throat midline. LUNGS: Bilateral air entry, a few rhonchi. CARDIOVASCULAR: S1 and S2. No murmurs, rubs or gallops. ABDOMINAL: Soft, nontender. EXTREMITIES: No clubbing, no cyanosis. There is no peripheral edema. INTEGUMENT: No rash. No purpura. LABS: 4.7 potassium, 44 BUN, 5.0 creatinine, 11 white count, 29 hematocrit, 335 platelets. IMPRESSION AND PLAN 1. Chronic pneumonitis. 2. Component of fluid overload. 3. Systolic cardiomyopathy. 4. Treat for pneumonia. 5. End-stage renal disease. 6. Treat as immunosuppressed state. At this time, will continue current treatment. Follow up bronchoscopy results. I discussed with primary doctor. The patient remains a readmit risk as we have not identified or improved any significant process. We will mobilize the patient to see how strong she is. Continue oxygen for now. Prednisone will be continued at 20 mg per day, but we will continue to wean it down slowly. Continue bronchodilators. Job#: [id number]
[2017-08-25] MEDS: NICOTINE 21 MG/EA PATCH TOP SCH (15:45)
--- NOTE | 2017-08-25 16:00 | Operative Report ---
DATE OF PROCEDURE: August 25, 2017 PROCEDURE: Diagnostic bronchoscopy with washes and bronchoalveolar lavage. INDICATIONS: Chronic pneumonitis. ANESTHESIA: MAC per anesthesiology. INFORMED CONSENT: From the patient. PROCEDURE: Ms. Carrillo was was placed. The bronchoscope was inserted into the bite block towards the vocal cords. Four percent lidocaine was administered here locally. Then the bronchoscope was inserted into the tracheobronchial airways. Bilateral inspection was done showing no significant lesions with normal airway configuration. Minimally increased secretions were noted. These were clear and they were suctioned. Washes were collected. The scope was wedged in the right middle lobe airway, where lavage was performed with a somewhat decreased yield due to hypercollapsibility of the airways. However, a lavage was performed, and there was no evidence of alveolar proteinosis nor hemorrhage based on gross appearance. However, bronchoalveolar lavage was collected and sent off to the lab. Afterwards, the patient was allowed to recover with anesthesia after the procedure was terminated. FINDINGS: Normal endobronchial airways except for very minimal airway secretions. Status post washes and bronchoalveolar lavage. RECOMMENDATIONS: Patient should get followup of these studies and these results. Follow up in 10 days for preliminary results. Continue current treatment including for possible fluid overload and for the pneumonitis. COMPLICATIONS: None. ESTIMATED BLOOD LOSS: None. Job#: [id number]
--- NOTE | 2017-08-25 17:02 | Progress Note ---
DATE: August 25, 2017 CARDIOLOGY PROGRESS NOTE SUBJECTIVE: The patient denies chest pain or shortness of breath. She was upset at being n.p.o. for a bronchoscopy. OBJECTIVE VITAL SIGNS: Temperature 97.7 degrees, pulse 63, respiratory rate 18, blood pressure 140/50, oxygen saturation 100% on 2 L nasal cannula. GENERAL: Awake, alert, no acute distress, cachectic. LUNGS: Clear to auscultation bilaterally. No wheezes or crackles. CARDIOVASCULAR: Normal rate, regular rhythm. Normal S1, S2. Systolic murmur. ABDOMEN: Soft. EXTREMITIES: No edema. CARDIAC MEDICATIONS 1. Isosorbide mononitrate 60 mg p.o. daily. 2. Amlodipine 5 mg p.o. b.i.d. 3. Amiodarone 100 mg p.o. b.i.d. 4. Atorvastatin 20 mg p.o. nightly. 5. Apixaban 2.5 mg p.o. b.i.d. 6. Aspirin 81 mg p.o. daily. 7. Carvedilol 25 mg p.o. b.i.d. 8. Lasix 40 mg p.o. daily. 9. Hydralazine 50 mg p.o. t.i.d. LABS: WBC 10.73, hemoglobin 9.7, hematocrit 29.6, platelets 335. Sodium 140, potassium 4.7, chloride 99, CO2 of 30, BUN 44, creatinine 5. BNP 4908. Chest x-ray: Stable cardiomegaly status post median sternotomy. Left chest wall ICD. Persistent diffuse opacities which could be due to edema and/or infection with small effusions. TELEMETRY: Normal sinus rhythm. IMPRESSION 1. Mvjjp-lp-crkoote systolic heart failure. 2. Severe chronic obstructive pulmonary disease exacerbation versus pneumonia. 3. End-stage renal disease, on hemodialysis. 4. Anemia of chronic disease. 5. Systolic heart failure, status post subcutaneous automatic implantable cardioverter-defibrillator. 6. Status post bioprosthetic mitral valve replacement. 7. History of peripheral arterial disease with renal and carotid stents. RECOMMENDATIONS: Continue current cardiac medications. Eliquis for CVA prophylaxis. Patient remains significantly volume overloaded, although she has improved. We will request renal perform additional ultrafiltration. Thank you for this consult. We will continue to follow. Job#: [id number] MH
[2017-08-25] MEDS ORDERED: LIDOCAINE HCL 2% LOCAL INJ 5 ML SDV VIAL INJ ONE (17:29)
[2017-08-25] MEDS ORDERED: PROPOFOL IV EMULSION 10 MG/ML 20 ML VIAL ONE (17:29)
[2017-08-25] MEDS ORDERED: FENTANYL CITRATE/PF 100MCG/2 ML INJ ONE (17:44)
[2017-08-25] MEDS: TRAZODONE HCL 50 MG TAB PO SCH (21:49)
[2017-08-25] MEDS: MELATONIN 3 MG TAB PO SCH (21:49)
[2017-08-25] MEDS: ATORVASTATIN 20 MG TAB PO SCH (21:49)
[2017-08-25] MEDS: AZITHROMYCIN 500MG/NS 250 ML 250 ML IV SCH (21:50)
[2017-08-26] VITALS (8 sets, daily range): BP systolic 121–153; BP diastolic 45–63
[2017-08-26] MEDS: TIOTROPIUM 18 MCG INH POWDER INH SCH (06:00)
[2017-08-26] MEDS: BUDESONIDE/FORMOTEROL 160/4.5MCG INHALER INH SCH (06:00)
--- NOTE | 2017-08-26 06:54 | Diagnostic Imaging Report ---
CHEST SINGLE (PORTABLE), 08/26/2017 5:00 AM Technique: CHEST SINGLE (PORTABLE) Comparison: Previous day Clinical history: \S\CHF Findings: See Impression Impression: 1. Stable cardiomegaly status post median sternotomy. Left chest wall ICD. 2. Persistent diffuse opacities, which could be due to edema and/or infection, with small effusions. Signed by: Dr Analisa Beverly MD on 08/26/2017 6:51 AM
[2017-08-26 07:00] LABS: BASOPHILS % 0.4 % (0.0-1.0); EOSINOPHILS # (AUTO) 0.3 (0.0-0.4); EOSINOPHILS % 3.7 % (0.0-6.0); LYMPHOCYTES # (AUTO) 1.2 (1.0-3.2); LYMPHOCYTES % 13.3 % (18.0-39.1); MEAN CORPUSCULAR HEMOGLOBIN 30.9 pg (28-32); MEAN CORPUSCULAR HGB CONC 32.1 g/dL (31-35); MEAN CORPUSCULAR VOLUME 96.2 fL (81-99); MONOCYTES # (AUTO) 0.7 (0.2-0.8); MONOCYTES % 7.6 % (4.4-11.3); NEUTROPHILS # (AUTO) 6.5 (2.1-6.9); PLATELET COUNT 309 x10e3/uL (140-360); RED BLOOD COUNT 2.91 x10e6/uL (3.6-5.1); RED CELL DISTRIBUTION WIDTH 16.9 % (11.7-14.4)
[2017-08-26] MEDS: ALBUTEROL/IPRATROPIUM 3 ML NEB NEB SCH ×4 (07:00→19:00)
[2017-08-26] MEDS: INSULIN REGULAR, HUMAN 100 UNIT/1 ML 3ML VIAL SQ SCH ×4 (07:30→21:00)
[2017-08-26] MEDS: PANTOPRAZOLE SOD 40 MG TABEC PO SCH (07:42)
[2017-08-26] MEDS: CARVEDILOL 12.5 MG TAB PO SCH ×2 (08:00→17:51)
[2017-08-26] MEDS: SEVELAMER CARBONATE 800 MG TAB PO SCH ×3 (08:19→17:50)
[2017-08-26] MEDS: AMLODIPINE BESYLATE 5 MG TAB PO SCH ×2 (09:00→17:59)
[2017-08-26] MEDS: MECLIZINE HCL 12.5 MG TAB PO SCH ×3 (09:00→17:50)
[2017-08-26] MEDS: HYDRALAZINE HCL 25 MG TAB PO SCH ×3 (09:00→21:46)
[2017-08-26] MEDS: AMIODARONE HCL 200 MG TAB PO SCH ×2 (09:00→17:50)
[2017-08-26] MEDS: APIXAB 2.5 MG TABLET PO SCH ×2 (09:00→17:50)
[2017-08-26] MEDS: EPOETIN ALFA 10000 UNIT/ML VIAL SC SCH (09:48)
[2017-08-26] MEDS: NICOTINE 21 MG/EA PATCH TOP SCH (09:48)
--- NOTE | 2017-08-26 10:39 | Progress Note ---
DATE: August 26, 2017 CARDIOLOGY PROGRESS NOTE SUBJECTIVE: The patient denies chest pain or shortness of breath. She is about to receive hemodialysis. OBJECTIVE VITALS: Temperature 98 degrees, pulse 74, respiratory rate 18, blood pressure 153/62, and oxygen saturation 98% on 2 L nasal cannula. GENERAL: Cachectic woman awake, alert and in no acute distress. LUNGS: Clear to auscultation bilaterally. No wheezes or crackles. CARDIOVASCULAR: Normal rate and regular rhythm. Normal S1 and S2. Diastolic murmur. ABDOMEN: Soft. EXTREMITIES: No edema. CARDIAC MEDICATIONS 1. Atorvastatin 20 mg p.o. daily. 2. Hydralazine 50 mg p.o. t.i.d. 3. Apixaban 2.5 mg p.o. b.i.d. 4. Isosorbide mononitrate 60 mg p.o. daily. 5. Aspirin 81 mg p.o. daily. 6. Carvedilol 25 mg p.o. b.i.d. 7. Lasix 40 mg p.o. daily. 8. Amlodipine 5 mg p.o. b.i.d. 9. Amiodarone 100 mg p.o. b.i.d. LABS: WBC 8.93, hemoglobin 9, hematocrit 28, and platelets 309,000. Telemetry is normal sinus rhythm. Chest x-ray is stable with cardiomegaly, status post median sternotomy, left chest wall ICD, persistent diffuse opacities which could be due to edema and/or infection with small effusion. IMPRESSION 1. Nsqug-ck-oglwuhp systolic heart failure. 2. Severe chronic obstructive pulmonary disease exacerbation versus pneumonia. 3. End-stage renal disease, on hemodialysis. 4. Anemia of chronic disease. 5. Systolic heart failure, status post subcutaneous implantable cardioverter defibrillator. 6. Status post bioprosthetic mitral valve replacement. 7. History of peripheral arterial disease with renal and carotid stents. RECOMMENDATIONS: Continue current cardiac medications. Eliquis for CVA prophylaxis. The patient remains volume overloaded although improved. Will request additional ultrafiltration from renal. Thank you for this consult. We will continue to follow. Job#: [id number] KAYA ARMENTA
[2017-08-26] MEDS: PREDNISONE 20 MG TAB PO SCH (17:50)
[2017-08-26] MEDS: FUROSEMIDE 40 MG TAB PO SCH (17:50)
[2017-08-26] MEDS: ASPIRIN 81 MG CHEW TAB PO SCH (17:50)
[2017-08-26] MEDS: ISOSORBIDE MONONITRATE 20 MG TAB PO SCH (17:59)
[2017-08-26] MEDS: FOLIC ACID/CYANOCOB/PYRIDOXINE TAB PO SCH (17:59)
--- NOTE | 2017-08-26 19:44 | Progress Note ---
DATE: August 26, 2017 PULMONARY MEDICINE PROGRESS NOTE SUBJECTIVE: Mrs. Carrillo states she had dialysis today. She feels better. She has more energy. More functional endurance, she claims. She is eating better. However, chest x-ray shows continued persistent opacities that are not significantly improved compared to August 18, 2017, prior to coming to the hospital. Patient in significant respiratory distress episodes. REVIEW OF SYSTEMS: No bleeding, no rash. OBJECTIVE VITAL SIGNS: Afebrile. Vital signs noted per electronic record. GENERALLY: No acute distress, alert and calm. HEENT: Normocephalic, atraumatic. NECK: Supple. Throat midline. LUNGS: Bilateral air entry, a few rhonchi, a few rales. CARDIOVASCULAR: S1 and S2. No murmurs, rubs or gallops. ABDOMINAL: Soft, nontender. EXTREMITIES: No clubbing, no cyanosis. There is no edema. INTEGUMENT: No rash. No purpura. LABS: Potassium 4.7, BUN 44, creatinine 5. White count 8.9, hematocrit 28, platelets 209. IMPRESSION AND PLAN 1. Abnormal chest radiography with pneumonia. 2. Abnormal chest x-ray radiography, some component of fluid overload. Patient claims she has achieved dry balance. 3. Chronic systolic and diastolic heart failure with 2016 ejection fraction 30% to 35%. 4. End-stage renal disease on hemodialysis. 5. Secondary pulmonary hypertension. 6. History of atrial fibrillation on some amiodarone in past. At this point, we recommend to continue to get the patient as dry as feasible to dry balance, which she claims she has achieved. She is on Lasix in addition to dialysis. Continue antibiotics. Patient needs consideration for more aggressive rehabilitation. Will follow along closely. As of now, she is deferring outside facilities but instead wants to go home after discharge. She may benefit from a few extra days of inpatient stay. Job#: [id number] VJ
[2017-08-26 20:43] LABS: BODY FLUID TYPE BRONCHIAL LAVAGE
[2017-08-26 20:46] LABS: OTHER CELLS,BODY FLUID 96 %
[2017-08-26] MEDS: ATORVASTATIN 20 MG TAB PO SCH (21:15)
[2017-08-26] MEDS: TRAZODONE HCL 50 MG TAB PO SCH (21:15)
[2017-08-26] MEDS: MELATONIN 3 MG TAB PO SCH (21:15)
[2017-08-26] MEDS: AZITHROMYCIN 500MG/NS 250 ML 250 ML IV SCH (21:47)
[2017-08-27] VITALS (9 sets, daily range): BP systolic 100–147; BP diastolic 50–63
[2017-08-27] MEDS: ACETAMINOPHEN/CODEINE 300MG - 30MG TAB PO PRN (06:11)
--- NOTE | 2017-08-27 06:36 | Diagnostic Imaging Report ---
CHEST SINGLE (PORTABLE), 08/27/2017 5:00 AM Technique: CHEST SINGLE (PORTABLE) Comparison: Previous day Clinical history: \S\CHF Findings: See Impression Impression: 1. Stable cardiomegaly status post median sternotomy. Left chest wall ICD. 2. Persistent diffuse opacities, which could be due to edema and/or infection, with small effusions. Signed by: Dr Analisa Beverly MD on 08/27/2017 6:33 AM
[2017-08-27 06:59] LABS: BASOPHILS % 0.3 % (0.0-1.0); EOSINOPHILS % 0.2 % (0.0-6.0); HEMATOCRIT 27.4 % (34.2-44.1); LYMPHOCYTES # (AUTO) 0.6 (1.0-3.2); LYMPHOCYTES % 5.4 % (18.0-39.1); MEAN CORPUSCULAR HEMOGLOBIN 31.4 pg (28-32); MEAN CORPUSCULAR HGB CONC 32.8 g/dL (31-35); MEAN CORPUSCULAR VOLUME 95.5 fL (81-99); MONOCYTES # (AUTO) 0.5 (0.2-0.8); MONOCYTES % 5.3 % (4.4-11.3); NEUTROPHILS # (AUTO) 8.7 (2.1-6.9); NEUTROPHILS % 85.5 % (38.7-80.0); PLATELET COUNT 317 x10e3/uL (140-360); RED BLOOD COUNT 2.87 x10e6/uL (3.6-5.1)
[2017-08-27 07:30] LABS: ANION GAP 11.8 mmol/L (8-16); CALCIUM 8.7 mg/dL (8.4-10.2); CREATININE, SERUM 4.24 mg/dL (0.57-1.11); POTASSIUM 4.8 mmol/L (3.5-5.1)
[2017-08-27] MEDS: INSULIN REGULAR, HUMAN 100 UNIT/1 ML 3ML VIAL SQ SCH (07:30)
[2017-08-27 07:43] LABS: EOSINOPHILS % (MANUAL) 1 % (0-7); LYMPHOCYTES % (MANUAL) 3 % (19-48); MONOCYTES % (MANUAL) 3 % (3.4-9.0); NEUTROPHILS % (MANUAL) 93 % (40-74)
[2017-08-27 07:44] LABS: ANISOCYTOSIS SLIGHT; PLATELET ESTIMATE ADEQUATE; PLATELET MORPHOLOGY COMMENT NORMAL; RBC MORPHOLOGY COMMENT NORMAL
[2017-08-27] MEDS: ALBUTEROL/IPRATROPIUM 3 ML NEB NEB SCH ×5 (07:46→23:25)
[2017-08-27] MEDS: BUDESONIDE/FORMOTEROL 160/4.5MCG INHALER INH SCH (07:46)
[2017-08-27] MEDS: TIOTROPIUM 18 MCG INH POWDER INH SCH (08:01)
[2017-08-27] MEDS: CARVEDILOL 12.5 MG TAB PO SCH ×2 (08:32→18:06)
[2017-08-27] MEDS: SEVELAMER CARBONATE 800 MG TAB PO SCH ×3 (08:32→18:06)
[2017-08-27] MEDS: MECLIZINE HCL 12.5 MG TAB PO SCH ×3 (08:32→21:59)
[2017-08-27] MEDS: PANTOPRAZOLE SOD 40 MG TABEC PO SCH (08:32)
[2017-08-27] MEDS: FUROSEMIDE 40 MG TAB PO SCH (08:33)
[2017-08-27] MEDS: ASPIRIN 81 MG CHEW TAB PO SCH (08:33)
[2017-08-27] MEDS: PREDNISONE 20 MG TAB PO SCH (08:33)
[2017-08-27] MEDS: APIXAB 2.5 MG TABLET PO SCH ×2 (08:33→18:06)
[2017-08-27] MEDS: AMIODARONE HCL 200 MG TAB PO SCH ×2 (08:33→18:06)
[2017-08-27] MEDS: NICOTINE 21 MG/EA PATCH TOP SCH (08:33)
[2017-08-27] MEDS: HYDRALAZINE HCL 25 MG TAB PO SCH ×3 (08:33→21:59)
[2017-08-27] MEDS: AMLODIPINE BESYLATE 5 MG TAB PO SCH ×2 (08:33→18:06)
[2017-08-27] MEDS: FOLIC ACID/CYANOCOB/PYRIDOXINE TAB PO SCH (08:33)
[2017-08-27] MEDS: ISOSORBIDE MONONITRATE 20 MG TAB PO SCH (08:33)
--- NOTE | 2017-08-27 13:32 | Progress Note ---
DATE: August 27, 2017 PULMONARY MEDICINE PROGRESS NOTE SUBJECTIVE: Ms. Carrillo was seen and examined at bedside. She continues to feel like she is slightly improved. She is able to endure more therapy. She is able to walk in the halls today. Even at rest, she has more energy. She is being ready for a diet now. Furthermore, she is also having more energy and better spirits. REVIEW OF SYSTEMS: No bleeding. No rash. OBJECTIVE VITALS: Afebrile. Vital signs noted per electronic record. GENERAL: No acute distress. Alert and calm. HEENT: Normocephalic and atraumatic. NECK: Supple. Throat midline. LUNGS: Bilateral air entry. Few rhonchi. CARDIOVASCULAR: S1 and S2. No murmurs, rubs or gallops. ABDOMEN: Soft and nontender. EXTREMITIES: No clubbing. No cyanosis. There is no edema. INTEGUMENT: No rash. No purpura. LABS: Potassium 4.8, BUN 22, creatinine 4.2. IMPRESSION AND PLAN 1. Refractory pneumonia. 2. Refractory fluid overload. 3. Treat for chronic interstitial lung disease, possible. 4. Amiodarone for atrial tachycardia. 5. Weakness, improving. 6. End-stage renal disease. Continue to get the patient negative if possible with dialysis. Will follow along closely. The patient will remain with followup for the pathology report. Want to see if there is any amiodarone in her lungs. Will follow along closely. Continue inpatient stay. Job#: [id number] KAYA
--- NOTE | 2017-08-27 14:29 | Progress Note ---
DATE: August 27, 2017 CARDIOLOGY PROGRESS NOTE SUBJECTIVE: Patient denies chest pain or shortness of breath. OBJECTIVE VITAL SIGNS: Temperature 97.9 degrees, pulse 69, respiratory rate 19, blood pressure 119/59, oxygen saturation 98% on 1.5 liters nasal cannula. GENERAL: Cachectic woman, no acute distress. Awake and alert. LUNGS: Clear to auscultation bilaterally. No wheezes or crackles. CARDIOVASCULAR: Normal rate, regular rhythm. Normal S1 and S2. Diastolic murmur. ABDOMEN: Soft. EXTREMITIES: No edema. CARDIAC MEDICATIONS 1. Apixaban 2.5 mg p.o. b.i.d. 2. Aspirin 81 mg p.o. daily. 3. Isosorbide mononitrate 60 mg p.o. daily. 4. Hydralazine 50 mg p.o. t.i.d. 5. Furosemide 40 mg p.o. daily. 6. Amlodipine 5 mg p.o. b.i.d. 7. Amiodarone 100 mg p.o. b.i.d. 8. Carvedilol 25 mg p.o. b.i.d. 9. Atorvastatin 20 mg p.o. nightly. LABS: WBC 10.13, hemoglobin 9, hematocrit 27.4, platelets 317. Sodium 138, potassium 4.8, chloride 99, CO2 32, BUN 22, creatinine 4.24. BNP 4339. TELEMETRY: Normal sinus rhythm. CHEST X-RAY: Stable cardiomegaly, status post median sternotomy, left chest wall ICD, persistent diffuse opacities which could be due to edema and/or infection with small effusions. IMPRESSION 1. Yvdqk-am-uekakbw systolic heart failure. 2. Severe chronic obstructive pulmonary disease exacerbation versus pneumonia. 3. End-stage renal disease, on hemodialysis. 4. Anemia of chronic disease. 5. Systolic heart failure, status post subcutaneous implantable cardioverter defibrillator. 6. Status post bioprosthetic mitral valve replacement. 7. History of peripheral arterial disease with renal and carotid stents. RECOMMENDATIONS: Continue current cardiac medications. Eliquis for CVA prophylaxis. Suspect patient remains volume-overloaded. Will request additional ultrafiltration. Thank you for this consult. We will continue to follow. Job#: [id number] EV
[2017-08-27] MEDS: TRAZODONE HCL 50 MG TAB PO SCH (21:59)
[2017-08-27] MEDS: ATORVASTATIN 20 MG TAB PO SCH (21:59)
[2017-08-27] MEDS: MELATONIN 3 MG TAB PO SCH (22:00)
[2017-08-27] MEDS: AZITHROMYCIN 500MG/NS 250 ML 250 ML IV SCH (22:00)
[2017-08-28] VITALS (7 sets, daily range): BP systolic 109–151; BP diastolic 47–77
[2017-08-28] MEDS: ALBUTEROL/IPRATROPIUM 3 ML NEB NEB SCH ×6 (03:00→23:35)
[2017-08-28 07:20] LABS: CALCIUM 9.1 mg/dL (8.4-10.2); CREATININE, SERUM 6.18 mg/dL (0.57-1.11)
[2017-08-28 07:39] LABS: ANION GAP 13.8 mmol/L (8-16)
[2017-08-28 07:47] LABS: POTASSIUM 3.8 mmol/L (3.5-5.1)
[2017-08-28] MEDS: SEVELAMER CARBONATE 800 MG TAB PO SCH ×3 (09:17→17:47)
[2017-08-28] MEDS: CARVEDILOL 12.5 MG TAB PO SCH ×2 (09:17→17:00)
[2017-08-28] MEDS: MECLIZINE HCL 12.5 MG TAB PO SCH ×3 (09:17→23:20)
[2017-08-28] MEDS: PANTOPRAZOLE SOD 40 MG TABEC PO SCH (09:17)
[2017-08-28] MEDS: HYDRALAZINE HCL 25 MG TAB PO SCH ×3 (09:18→23:15)
[2017-08-28] MEDS: PREDNISONE 20 MG TAB PO SCH (09:18)
[2017-08-28] MEDS: ISOSORBIDE MONONITRATE 20 MG TAB PO SCH (09:18)
[2017-08-28] MEDS: FOLIC ACID/CYANOCOB/PYRIDOXINE TAB PO SCH (09:18)
[2017-08-28] MEDS: APIXAB 2.5 MG TABLET PO SCH ×2 (09:18→17:47)
[2017-08-28] MEDS: ASPIRIN 81 MG CHEW TAB PO SCH (09:18)
[2017-08-28] MEDS: EPOETIN ALFA 10000 UNIT/ML VIAL SC SCH (09:18)
[2017-08-28] MEDS: FUROSEMIDE 40 MG TAB PO SCH (09:18)
[2017-08-28] MEDS: AMLODIPINE BESYLATE 5 MG TAB PO SCH ×2 (09:18→17:00)
[2017-08-28] MEDS: AMIODARONE HCL 200 MG TAB PO SCH ×2 (09:18→17:00)
[2017-08-28] MEDS: NICOTINE 21 MG/EA PATCH TOP SCH (09:18)
[2017-08-28] MEDS: BUDESONIDE/FORMOTEROL 160/4.5MCG INHALER INH SCH (11:22)
[2017-08-28] MEDS: TIOTROPIUM 18 MCG INH POWDER INH SCH (11:22)
--- NOTE | 2017-08-28 13:10 | Progress Note ---
DATE: August 28, 2017 CARDIOLOGY PROGRESS NOTE SUBJECTIVE: The patient denies chest pain or shortness of breath. OBJECTIVE VITALS: Temperature 97 degrees, pulse 51, respiratory rate 20, blood pressure 109/47, and oxygen saturation 100% on 2 L nasal cannula. GENERAL: Cachectic woman in no acute distress. Awake and alert. LUNGS: Crackles in bilateral bases. Otherwise, clear to auscultation. CARDIOVASCULAR: Normal rate and regular rhythm. Normal S1 and S2. Diastolic murmur. ABDOMEN: Soft. EXTREMITIES: No edema. CARDIAC MEDICATIONS 1. Apixaban 2.5 mg p.o. b.i.d. 2. Aspirin 81 mg p.o. daily. 3. Isosorbide mononitrate 60 mg p.o. daily. 4. Hydralazine 50 mg p.o. t.i.d. 5. Furosemide 40 mg p.o. daily. 6. Amlodipine 5 mg p.o. b.i.d. 7. Amiodarone 100 mg p.o. b.i.d. 8. Carvedilol 25 mg p.o. b.i.d. 9. Atorvastatin 20 mg p.o. at bedtime. LABS: Sodium 139, potassium 3.8, chloride 97, CO2 28, BUN 37, creatinine 6.18. Telemetry is normal sinus rhythm. IMPRESSION 1. Xhvxf-ag-nouufrm systolic heart failure. 2. Severe chronic obstructive pulmonary disease exacerbation versus pneumonia. 3. End-stage renal disease, on hemodialysis. 4. Anemia of chronic disease. 5. Systolic heart failure, status post subcutaneous implantable cardioverter defibrillator. 6. Status post bioprosthetic mitral valve replacement. 7. History of peripheral arterial disease with renal and carotid stents. RECOMMENDATIONS: Continue current cardiac medications. Eliquis for CVA prophylaxis. The patient is likely still volume overloaded. We will request additional ultrafiltration. Thank you for this consult. We will continue to follow. Job#: [id number] KAYA
--- NOTE | 2017-08-28 13:34 | Progress Note ---
DATE: August 28, 2017 PULMONARY MEDICINE PROGRESS NOTE SUBJECTIVE: Mrs. Carrillo was seen and examined at bedside. Patient continues to have slow progress. She states she continues to get better. Patient expected for dialysis later on today. Patient with 1.6 L in and zero output documented. She had bowel movement 2 days ago, although none recorded yesterday. Patient overall feels like her function and endurance is better. She is able to move a little bit more independently. REVIEW OF SYSTEMS: No bleeding. No rash. OBJECTIVE VITALS: Afebrile. Vital signs noted per electronic record. GENERAL: No acute distress. Alert and calm. HEENT: Normocephalic and atraumatic. NECK: Supple. Throat midline. LUNGS: Bilateral air entry. No rhonchi. CARDIOVASCULAR: S1 and S2. No murmurs, rubs or gallops. ABDOMEN: Soft and nontender. EXTREMITIES: No clubbing. No cyanosis. There is no edema. INTEGUMENT: No rash. No purpura. LABS: Potassium , BUN 37, creatinine 6.2. White count 10, hematocrit 27 and platelets 217,000. IMPRESSION AND PLAN 1. Abnormal chest radiography, pneumonitis. 2. Abnormal chest radiography, possible concomitant fluid overload. 3. End-stage renal disease. 4. Chronic atrial tachycardia with some level of chronic amiodarone use. 5. Improving weakness. Will follow up on the pathology results, which have been released to the pathology lab. Will assess slides and assess the change of amiodarone lung disease. Poly-microphagias were reported. Will have to assess these. Patient may have consideration for alteration to treatment based on results. Continue bronchodilators. Consideration for steroids will ensue. Patient will have continued dialysis to guide balance as possible, including today. Follow up closely. Follow up with cultures from the bronchoalveolar lavage. Job#: [id number] KAYA
[2017-08-28] MEDS ORDERED: SODIUM CHLORIDE 0.9% 1000ML 2,000 ML ONE (17:57)
[2017-08-28] MEDS: ATORVASTATIN 20 MG TAB PO SCH (23:20)
[2017-08-28] MEDS: MELATONIN 3 MG TAB PO SCH (23:20)
[2017-08-28] MEDS: TRAZODONE HCL 50 MG TAB PO SCH (23:20)
[2017-08-28] MEDS: AZITHROMYCIN 500MG/NS 250 ML 250 ML IV SCH (23:20)
[2017-08-29] VITALS (9 sets, daily range): BP systolic 118–145; BP diastolic 52–65
[2017-08-29] MEDS: ALBUTEROL/IPRATROPIUM 3 ML NEB NEB SCH ×6 (03:00→23:15)
--- NOTE | 2017-08-29 06:52 | Diagnostic Imaging Report ---
CHEST SINGLE (PORTABLE), 08/29/2017 5:00 AM Technique: CHEST SINGLE (PORTABLE) Comparison: Previous day Clinical history: \S\CHF Findings: See Impression Impression: 1. Stable cardiomegaly status post median sternotomy. Left chest wall ICD. 2. Mildly improved diffuse opacities, which could be due to edema and/or infection, with small effusions. Signed by: Dr Analisa Beverly MD on 08/29/2017 6:48 AM
[2017-08-29] MEDS: FUROSEMIDE 40 MG TAB PO SCH (08:50)
[2017-08-29] MEDS: PREDNISONE 20 MG TAB PO SCH (08:50)
[2017-08-29] MEDS: ASPIRIN 81 MG CHEW TAB PO SCH (08:50)
[2017-08-29] MEDS: ISOSORBIDE MONONITRATE 20 MG TAB PO SCH (08:50)
[2017-08-29] MEDS: SEVELAMER CARBONATE 800 MG TAB PO SCH ×3 (08:50→17:15)
[2017-08-29] MEDS: AMLODIPINE BESYLATE 5 MG TAB PO SCH ×2 (08:50→17:15)
[2017-08-29] MEDS: MECLIZINE HCL 12.5 MG TAB PO SCH ×3 (08:50→23:56)
[2017-08-29] MEDS: AMIODARONE HCL 200 MG TAB PO SCH ×2 (08:50→17:14)
[2017-08-29] MEDS: CARVEDILOL 12.5 MG TAB PO SCH ×2 (08:50→17:15)
[2017-08-29] MEDS: HYDRALAZINE HCL 25 MG TAB PO SCH ×3 (08:50→21:14)
[2017-08-29] MEDS: VANCOMYCIN 1GM/NS 250 ML 250 ML IV SCH (08:50)
[2017-08-29] MEDS: PANTOPRAZOLE SOD 40 MG TABEC PO SCH (08:50)
[2017-08-29] MEDS: FOLIC ACID/CYANOCOB/PYRIDOXINE TAB PO SCH (08:50)
[2017-08-29] MEDS: NICOTINE 21 MG/EA PATCH TOP SCH (08:50)
[2017-08-29] MEDS: APIXAB 2.5 MG TABLET PO SCH ×2 (08:50→17:15)
--- NOTE | 2017-08-29 12:30 | Progress Note ---
DATE: August 29, 2017 CARDIOLOGY PROGRESS NOTE SUBJECTIVE: The patient denies chest pain or shortness of breath. OBJECTIVE VITALS: Temperature 94.9 degrees, pulse 69, respiratory rate 20, blood pressure 145/59, oxygen saturation 98% on 2 L nasal cannula. GENERAL: Awake, alert and in no acute distress. Cachectic. LUNGS: Clear to auscultation bilaterally. No wheezes or crackles. CARDIOVASCULAR: Normal rate. Regular rhythm. Normal S1 and S2. Diastolic murmur. ABDOMEN: Soft. EXTREMITIES: No edema. CARDIAC MEDICATIONS 1. Apixaban 2.5 mg p.o. b.i.d. 2. Aspirin 81 mg p.o. daily. 3. Carvedilol 25 mg p.o. b.i.d. 4. Isosorbide mononitrate 60 mg p.o. daily. 5. Lasix 40 mg p.o. daily. 6. Amlodipine 5 mg p.o. b.i.d. 7. Amiodarone 100 mg p.o. b.i.d. 8. Atorvastatin 20 mg p.o. at bedtime. LABS: None today. Telemetry is normal sinus rhythm. IMPRESSION 1. Uwvbd-pr-vmvithn systolic heart failure. 2. Severe chronic obstructive pulmonary disease exacerbation versus pneumonia. 3. End-stage renal disease, on hemodialysis. 4. Anemia of chronic disease. 5. Systolic heart failure: Status post subcutaneous implantable cardioverter defibrillator. 6. Status post bioprosthetic mitral valve replacement. 7. History of peripheral arterial disease with renal and carotid stents. RECOMMENDATIONS: Continue current cardiac medications. Eliquis for CVA prophylaxis. The patient is likely still volume overloaded. We will request additional ultrafiltration. Thank you for this consult. We will continue to follow. Job#: [id number] RI
[2017-08-29] MEDS: BUDESONIDE/FORMOTEROL 160/4.5MCG INHALER INH SCH (14:25)
[2017-08-29] MEDS: TIOTROPIUM 18 MCG INH POWDER INH SCH (14:25)
--- NOTE | 2017-08-29 15:01 | Progress Note ---
DATE: August 29, 2017 PULMONARY MEDICINE PROGRESS NOTE SUBJECTIVE: Ms. Carrillo was seen and examined at bedside. She continues to feel about 85% of her baseline now, per her report. Three liters per minute by nasal cannula oxygen being given. She is eating well. Good bowel movements. REVIEW OF SYSTEMS: No headaches, no bleeding. OBJECTIVE VITAL SIGNS: Afebrile. Vital signs noted per electronic record. GENERALLY: No acute distress, alert and calm. HEENT: Normocephalic, atraumatic. NECK: Supple. Throat midline. LUNGS: Bilateral air entry, very mild rales, mostly clear. CARDIOVASCULAR: S1 and S2. No murmurs, rubs or gallops. ABDOMINAL: Soft, nontender. EXTREMITIES: No clubbing, no cyanosis. There is no edema. INTEGUMENT: No rash. No purpura. LABS: BUN 37, creatinine 6.1. IMPRESSION AND PLAN 1. Possible fluid overload. 2. End-stage renal disease. 3. Acute community-acquired pneumonia. 4. Possible chronic interstitial lung disease with the possibilities including amiodarone lung disease, other indolent infection, or hypersensitivity pneumonia or others. 5. Weakness. 6. Chronic systolic and diastolic heart failure, left ventricular ejection fraction 30% to 35%. 7. Atrial fibrillation history. I discussed with Cardiology today. They will review their records to see the long-term cumulative dose of amiodarone. Will continue to review the pathology findings, which include microphages that were laden with fat/lipid inclusions. Will continue to follow bronchoscopy findings. Continue dialysis dry balance. We will repeat a chest x-ray tomorrow to see if it is improving. Follow up closely. Good indicator of her ability to prevent readmission would be her strength; so, will see how she is doing tomorrow. Consideration will be for steroids for possibility of amiodarone lung with consideration for a biopsy of the lung in the future. Job#: [id number] VJ
[2017-08-29] MEDS: ATORVASTATIN 20 MG TAB PO SCH (21:14)
[2017-08-29] MEDS: TRAZODONE HCL 50 MG TAB PO SCH (21:14)
[2017-08-29] MEDS: AZITHROMYCIN 500MG/NS 250 ML 250 ML IV SCH (21:14)
[2017-08-29] MEDS: MELATONIN 3 MG TAB PO SCH (23:56)
[2017-08-30] VITALS: BP 137/61
[2017-08-30] MEDS: ALBUTEROL/IPRATROPIUM 3 ML NEB NEB SCH ×2 (03:10→07:00)
[2017-08-30] MEDS: TIOTROPIUM 18 MCG INH POWDER INH SCH (06:00)
[2017-08-30] MEDS: BUDESONIDE/FORMOTEROL 160/4.5MCG INHALER INH SCH (06:00)
--- NOTE | 2017-08-30 06:30 | Diagnostic Imaging Report ---
CHEST 2 VIEWS, 08/30/2017 12:21 PM Technique: CHEST 2 VIEWS Comparison: Previous day Clinical history: \S\ Pneumonia Findings: See Impression Impression: 1. Stable cardiomegaly status post median sternotomy. Left chest wall ICD. 2. Persistent diffuse interstitial and more patchy opacities, which could be due to edema and/or infection, with small effusions. Signed by: Dr Analisa Beverly MD on 08/30/2017 6:27 AM
[2017-08-30 06:49] VITALS: BP 177/74
[2017-08-30 07:16] LABS: BASOPHILS # (AUTO) 0.1 (0.0-0.1); BASOPHILS % 1.1 % (0.0-1.0); EOSINOPHILS # (AUTO) 0.2 (0.0-0.4); EOSINOPHILS % 2.7 % (0.0-6.0); HEMATOCRIT 29.9 % (34.2-44.1); HEMOGLOBIN 9.4 g/dL (12.0-16.0); LYMPHOCYTES # (AUTO) 1.3 (1.0-3.2); LYMPHOCYTES % 15.6 % (18.0-39.1); MEAN CORPUSCULAR HEMOGLOBIN 31.3 pg (28-32); MEAN CORPUSCULAR HGB CONC 31.4 g/dL (31-35); MEAN CORPUSCULAR VOLUME 99.7 fL (81-99); MONOCYTES # (AUTO) 0.7 (0.2-0.8); MONOCYTES % 8.7 % (4.4-11.3); NEUTROPHILS # (AUTO) 5.3 (2.1-6.9); NEUTROPHILS % 63.2 % (38.7-80.0); PLATELET COUNT 315 x10e3/uL (140-360); RED CELL DISTRIBUTION WIDTH 19.4 % (11.7-14.4)
[2017-08-30 07:20] VITALS: BP 165/74
[2017-08-30 07:33] LABS: ALBUMIN 2.9 g/dL (3.5-5.0); ANION GAP 13.4 mmol/L (8-16); CALCIUM 9.2 mg/dL (8.4-10.2); CREATININE, SERUM 5.95 mg/dL (0.57-1.11); POTASSIUM 4.4 mmol/L (3.5-5.1)
[2017-08-30 07:42] VITALS: BP 165/74
[2017-08-30] MEDS: PANTOPRAZOLE SOD 40 MG TABEC PO SCH (07:52)
[2017-08-30 08:21] LABS: BAND NEUTROPHILS % (MANUAL) 1 %; EOSINOPHILS % (MANUAL) 2 % (0-7); LYMPHOCYTES % (MANUAL) 18 % (19-48); MONOCYTES % (MANUAL) 10 % (3.4-9.0); MYELOCYTES % (MANUAL) 8 % (0-0); NEUTROPHILS % (MANUAL) 60 % (40-74)
[2017-08-30 08:22] LABS: ANISOCYTOSIS SLIGHT; OVALOCYTES FEW; POLYCHROMASIA FEW; RBC MORPHOLOGY COMMENT ABNORMAL
[2017-08-30 08:23] LABS: PLATELET ESTIMATE ADEQUATE; PLATELET MORPHOLOGY COMMENT NORMAL
--- NOTE | 2017-08-30 09:38 | Discharge Summary ---
ADMIT DIAGNOSES 1. Sepsis secondary to bilateral pneumonia. 2. Qdlgj-nt-zmyqhhl systolic and diastolic congestive heart failure. 3. Chronic obstructive pulmonary disease exacerbation. 4. End-stage renal disease. 5. Hypertensive heart disease. 6. Atrial fibrillation. DISCHARGE DIAGNOSES 1. Sepsis secondary to bilateral pneumonia, likely gram-negative allyson (resolving). 2. Bilateral pneumonia, likely gram-negative allyson, resolving. 3. Vndau-nz-oqjfatu systolic and diastolic congestive heart failure, resolving. 4. Hypertensive heart disease. 5. End-stage renal disease. 6. Chronic obstructive pulmonary disease exacerbation, resolved. 7. Tobacco abuse. 8. Atrial fibrillation. 9. Underweight (calculated body mass is 18). 10. Anemia secondary to chronic disease/chronic kidney disease. 11. Moderate protein calorie malnutrition. HOSPITAL COURSE: This is a 67-year-old white woman who was initially admitted to [facility] with the diagnosis of sepsis secondary to bilateral pneumonia. During this hospitalization, it was presumed the patient's pneumonia was gram-negative allyson bacteria in etiology. The blood and sputum cultures, however, did not reveal any bacterial growth. During this hospitalization, the patient did undergo bronchoscopy performed by her tool and die repair, namely Dr. Mauricio Pappas. The bronchoscopy revealed normal endobronchial airways except for minimal airway secretions. The patient also underwent a 2-D echocardiogram during this hospitalization, which revealed left ventricular ejection fraction of 30% to 35%. It also revealed left atrial enlargement consistent with diastolic heart failure. The patient was seen by her hotel concierge during this hospitalization, namely Dr. Maxwell. The patient was also seen by her pig machine supervisor during the hospitalization, namely Dr. Bryson. The patient did undergo multiple rounds of hemodialysis during the hospitalization because of her acute volume overload, as well as her end-stage renal disease. The patient's hospitalization was unremarkable. The patient improved clinically with intravenous vancomycin and cefepime. The patient's condition on discharge was stable. DISCHARGE MEDICATIONS 1. Ceftin 250 mg 1 p.o. b.i.d. for 7 days. 2. Nicotine patch 21 mg strength 1 daily. 3. Lasix 80 mg daily. 4. Pantoprazole 40 mg daily. 5. Albuterol with ipratropium nebulized treatments every 4 hours as needed for shortness of breath or wheezing. 6. Symbicort inhaler 150 per 4.5 mcg 1 puff b.i.d. 7. Spiriva inhaler 1 puff daily. 8. Melatonin 3 mg at bedtime. 9. Trazodone 100 mg at bedtime. 10. Hydralazine 50 mg t.i.d. 11. Atorvastatin 20 mg at bedtime. 12. Apixaban 2.5 mg b.i.d. 13. Carvedilol 25 mg b.i.d. 14. Sevelamer 1600 mg t.i.d. 15. Amlodipine 5 mg b.i.d. 16. Amiodarone 100 mg daily. 17. Aspirin 81 mg daily. 18. Nephro-Nora vitamin once daily. 19. Isosorbide mononitrate 60 mg daily. 20. Epogen 10,000 units 3 times a week with hemodialysis. 21. Tylenol No. 3 one every 6 hours p.r.n. pain. FOLLOWUP INSTRUCTIONS: The patient was instructed to follow up with her primary care physician, namely myself, Dr. Denny Montemayor, within the next 2 weeks. The patient was told not to drink more than 1.5 L a day of liquids. DENNY MONTEMAYOR MD Job#: [id number] RI cc: Qian BURLESON M.D. ANGELA SHIUE, M.D. MTDValeriano
[2017-08-30] MEDS: AMIODARONE HCL 200 MG TAB PO SCH (09:46)
[2017-08-30] MEDS: APIXAB 2.5 MG TABLET PO SCH (09:46)
[2017-08-30] MEDS: MECLIZINE HCL 12.5 MG TAB PO SCH (09:46)
[2017-08-30] MEDS: CARVEDILOL 12.5 MG TAB PO SCH (09:46)
[2017-08-30] MEDS: HYDRALAZINE HCL 25 MG TAB PO SCH (09:46)
[2017-08-30] MEDS: ASPIRIN 81 MG CHEW TAB PO SCH (09:46)
[2017-08-30] MEDS: SEVELAMER CARBONATE 800 MG TAB PO SCH (09:46)
[2017-08-30] MEDS: AMLODIPINE BESYLATE 5 MG TAB PO SCH (09:47)
[2017-08-30] MEDS: PREDNISONE 20 MG TAB PO SCH (09:47)
[2017-08-30] MEDS: FUROSEMIDE 40 MG TAB PO SCH (09:47)
[2017-08-30] MEDS: ISOSORBIDE MONONITRATE 20 MG TAB PO SCH (09:47)
[2017-08-30] MEDS: NICOTINE 21 MG/EA PATCH TOP SCH (09:47)
[2017-08-30] MEDS: FOLIC ACID/CYANOCOB/PYRIDOXINE TAB PO SCH (09:47)
[2017-08-30] MEDS ORDERED: CEFTIN250 MG/5 M PO (10:22)
--- NOTE | 2017-08-30 10:59 | Progress Note ---
DATE: August 30, 2017 CARDIOLOGY PROGRESS NOTE SUBJECTIVE: The patient denies chest pain or shortness of breath. OBJECTIVE VITALS: Temperature 96.8 degrees, pulse 65, respiratory rate 16, blood pressure 165/74, oxygen saturation 94% on 2 L nasal cannula. GENERAL: Awake, alert and in no acute distress. Cachectic. LUNGS: Clear to auscultation bilaterally. No wheezes or crackles. CARDIOVASCULAR: Normal rate. Regular rhythm. Normal S1 and S2. Diastolic murmur. ABDOMEN: Soft. EXTREMITIES: No edema. CARDIAC MEDICATIONS 1. Isosorbide mononitrate 60 mg p.o. a day. 2. Furosemide 40 mg p.o. a day. 3. Amlodipine 5 mg p.o. b.i.d. 4. Apixaban 2.5 mg p.o. b.i.d. 5. Aspirin 81 mg p.o. daily. 6. Carvedilol 25 mg p.o. b.i.d. 7. Amiodarone 100 mg p.o. b.i.d. 8. Hydralazine 50 mg t.i.d. 9. Atorvastatin 20 mg p.o. at bedtime. LABS: WBC 8.4, hemoglobin 9.4, hematocrit 29.9, and platelets 315,000. Sodium 138, potassium 4.4, chloride 100, CO2 29, BUN 29, creatinine 5.95. BNP 3997. Telemetry is normal sinus rhythm. IMPRESSION 1. Rkwii-po-jasdwuo systolic heart failure. 2. Severe chronic obstructive pulmonary disease exacerbation versus pneumonia. 3. End-stage renal disease, on hemodialysis. 4. Anemia of chronic disease. 5. Systolic heart failure: Status post implantable cardioverter defibrillator. 6. Status post bioprosthetic mitral valve replacement. 7. History of peripheral arterial disease with renal and carotid stents. RECOMMENDATIONS: Continue current cardiac medications. Continue Eliquis for CVA prophylaxis. We will ask nephrology to continue additional ultrafiltration as outpatient. Thank you for this consult. We will continue to follow. Job#: [id number] KAYA
== END 2017-08-30 10:54 | disposition home or self-care (01) | DRG 871 ==
LOC: FSED 20:22 → IMCU 23:42 → MED/SURG3 08-25 15:54
PROVIDERS: ADMIT Internal Medicine; ATTEND Internal Medicine
PROC: 0B958ZX Drainage of Right Middle Lobe Bronchus, Via Natural or Artificial Opening Endoscopic, Diagnostic (ICD-10-PCS; principal; 2017-08-25 14:00)
PROC: 5A1D70Z Performance of Urinary Filtration, Intermittent, Less than 6 Hours Per Day (ICD-10-PCS; 2017-08-26)
DX: A41.9 Sepsis, unspecified organism (principal); I50.43 Acute on chronic combined systolic (congestive) and diastolic (congestive) heart failure; J18.9 Pneumonia, unspecified organism; N18.6 End stage renal disease; E44.0 Moderate protein-calorie malnutrition; I47.1 Supraventricular tachycardia; J44.1 Chronic obstructive pulmonary disease with (acute) exacerbation; I13.2 Hypertensive heart and chronic kidney disease with heart failure and with stage 5 chronic kidney disease, or end stage renal disease; Z68.1 Body mass index [BMI] 19.9 or less, adult; I48.0 Paroxysmal atrial fibrillation; I50.84 End stage heart failure; D64.9 Anemia, unspecified; R09.02 Hypoxemia; Z99.2 Dependence on renal dialysis; Z95.810 Presence of automatic (implantable) cardiac defibrillator; Z88.5 Allergy status to narcotic agent; Z95.2 Presence of prosthetic heart valve; I35.0 Nonrheumatic aortic (valve) stenosis; F17.210 Nicotine dependence, cigarettes, uncomplicated; E87.70 Fluid overload, unspecified; I73.9 Peripheral vascular disease, unspecified; Z86.73 Personal history of transient ischemic attack (TIA), and cerebral infarction without residual deficits; Z79.01 Long term (current) use of anticoagulants; R63.6 Underweight; D63.1 Anemia in chronic kidney disease; I27.20 Pulmonary hypertension, unspecified
CPT/HCPCS: 36415; 71045; 71046; 80048; 80053; 82553; 82607; 82728; 82747; 82948; 83036; 83540; 83880; 84443; 84466; 84484; 85025; 85610; 86021; 86039; 86704; 86706; 87040; 87070; 87102; 87116; 87205; 87206; 87252; 87340; 87400; 88112; 88305; 89051; 90962; 93005; 93306; 94640; 99284; J0171; J0456; J0692; J0696; J2001; J2150; J2930; J3370; J7030; J7050; Q4081

== ENCOUNTER 2018-03-20 16:44 | Observation (INO) | payer MEDICARE ==
[~2018-03-20] VITALS: Ht 172.7 cm; Wt 50.0 kg
[~2018-03-20 16:44] MED LIST changes: +CEFDINIR125 MG/5 M; +CEFTIN250 MG/5 M PO; +FUROSEMIDE40 MG PO; +SYMBICORT 16010.2 GM
[2018-03-20 17:43] LABS: BASOPHILS # (AUTO) 0.1 (0.0-0.1); BASOPHILS % 1.3 % (0.0-1.0); EOSINOPHILS # (AUTO) 0.4 (0.0-0.4); EOSINOPHILS % 5.7 % (0.0-6.0); HEMATOCRIT 34.5 % (34.2-44.1); HEMOGLOBIN 11.1 g/dL (12.0-16.0); LYMPHOCYTES # (AUTO) 1.2 (1.0-3.2); LYMPHOCYTES % 15.5 % (18.0-39.1); MEAN CORPUSCULAR HEMOGLOBIN 30.3 pg (28-32); MEAN CORPUSCULAR HGB CONC 32.2 g/dL (31-35); MEAN CORPUSCULAR VOLUME 94.3 fL (81-99); MONOCYTES # (AUTO) 0.8 (0.2-0.8); MONOCYTES % 10.3 % (4.4-11.3); NEUTROPHILS % 66.8 % (38.7-80.0); PLATELET COUNT 230 x10e3/uL (140-360); RED BLOOD COUNT 3.66 x10e6/uL (3.6-5.1); RED CELL DISTRIBUTION WIDTH 18.6 % (11.7-14.4)
[2018-03-20] MEDS ORDERED: ACETAMINOPHEN 325 MG TAB PO ONE (18:00)
--- NOTE | 2018-03-20 18:02 | Diagnostic Imaging Report ---
EXAMINATION: CHEST SINGLE (PORTABLE) COMPARISON: Chest radiograph 08/30/17. FINDINGS: TUBES and LINES: Left-sided AICD device is present with lead in unchanged position. LUNGS: The lungs are hyperinflated. Bilateral interstitial opacities with patchy opacities in the bilateral mid and left lower lung zones. A nodular opacity in the right lower lung zone is present. PLEURA: Small bilateral pleural effusions. No evidence of pneumothorax. HEART AND MEDIASTINUM: The cardiomediastinal silhouette is unchanged. BONES AND SOFT TISSUES: Status post median sternotomy. No acute osseous lesion. Soft tissues are unremarkable. UPPER ABDOMEN: No free air under the diaphragm. IMPRESSION: Emphysematous changes of the lungs with bilateral interstitial and patchy opacities, which could represent pulmonary edema and/or pneumonia Nodular opacity in the right lower lung zone, which could represent focal consolidation. Follow-up chest radiograph is suggested in 6-8 weeks to assess for resolution. Small bilateral pleural effusions. Signed by: Dr. Vasquez Mckeon MD on 03/20/2018 5:58 PM
[2018-03-20 18:07] LABS: INR 1.06; PROTHROMBIN TIME 14.8 seconds (11.9-14.5)
[2018-03-20 18:08] LABS: PARTIAL THROMBOPLASTIN TIME 37.3 seconds (23.8-35.5)
[2018-03-20] MEDS ORDERED: CEFTRIAXONE SOD 1 GM VIAL IV SCH (18:15)
[2018-03-20 18:18] LABS: ALBUMIN 3.9 g/dL (3.5-5.0); ANION GAP 15.5 mmol/L (8-16); CALCIUM 10.7 mg/dL (8.4-10.2); CREATININE, SERUM 5.01 mg/dL (0.57-1.11); MAGNESIUM 2.3 MG/DL (1.3-2.1); POTASSIUM 4.5 mmol/L (3.5-5.1)
[2018-03-20 18:24] LABS: CREATINE KINASE MB 0.4 ng/mL (0-5.0)
[2018-03-20] MEDS: AZITHROMYCIN 500MG/NS 250 ML 250 ML IV SCH (18:24)
[2018-03-20] MEDS ORDERED: ASPIRIN 81 MG CHEW TAB PO ONE (18:30)
[2018-03-20] MEDS ORDERED: FUROSEMIDE INJ 10 MG/ML 4 ML VIAL IV ONE (18:45)
[2018-03-20] MEDS ORDERED: NITROGLYCERIN 2% OINT 1 GM PKT TOP ONE (18:45)
[2018-03-20] MEDS ORDERED: IPRATROPIUM BROMIDE 0.02% 2.5 ML NEB NEB PRN (18:45)
[2018-03-20] MEDS ORDERED: IPRATROPIUM/ALBUTEROL SULFATE 4 GM INH INH SCH (19:00)
[2018-03-20 20:00] VITALS: BP 99/58
[2018-03-20] MEDS ORDERED: LEVALBUTEROL TARTRATE 0.63 MG NEB PRN (21:30)
[2018-03-20] MEDS ORDERED: ACETAMINOPHEN/CODEINE 300MG - 30MG TAB PO PRN (21:30)
[2018-03-20] MEDS: APIXAB 2.5 MG TABLET PO SCH (21:42)
[2018-03-20] MEDS ORDERED: LEVALBUTEROL HCL SOLN NEBU 0.63 MG/3 ML NEB IH PRN (21:45)
[2018-03-20] MEDS ORDERED: MELATONIN 3 MG TAB PO SCH (22:07)
[2018-03-20] MEDS ORDERED: TRAZODONE HCL 50 MG TAB PO SCH (22:08)
[2018-03-21] VITALS (10 sets, daily range): BP systolic 92–161; BP diastolic 52–93
[2018-03-21 04:11] LABS: CREATINE KINASE MB 0.4 ng/mL (0-5.0)
[2018-03-21 04:22] LABS: CALCIUM 11.7 mg/dL (8.4-10.2); CREATININE, SERUM 5.33 mg/dL (0.57-1.11)
[2018-03-21] MEDS: ACETAMINOPHEN/CODEINE 300MG - 30MG TAB PO PRN ×2 (06:12→15:00)
[2018-03-21 07:15] LABS: HEMATOCRIT 29.5 % (34.2-44.1); HEMOGLOBIN 9.7 g/dL (12.0-16.0); RED BLOOD COUNT 3.21 x10e6/uL (3.6-5.1)
[2018-03-21 07:16] LABS: BASOPHILS # (AUTO) 0.1 (0.0-0.1); BASOPHILS % 1.3 % (0.0-1.0); EOSINOPHILS # (AUTO) 0.4 (0.0-0.4); EOSINOPHILS % 5.8 % (0.0-6.0); LYMPHOCYTES # (AUTO) 0.8 (1.0-3.2); LYMPHOCYTES % 13.1 % (18.0-39.1); MEAN CORPUSCULAR HEMOGLOBIN 30.2 pg (28-32); MEAN CORPUSCULAR HGB CONC 32.9 g/dL (31-35); MEAN CORPUSCULAR VOLUME 91.9 fL (81-99); MONOCYTES # (AUTO) 0.6 (0.2-0.8); MONOCYTES % 9.7 % (4.4-11.3); NEUTROPHILS # (AUTO) 4.3 (2.1-6.9); NEUTROPHILS % 69.6 % (38.7-80.0); PLATELET COUNT 194 x10e3/uL (140-360); RED CELL DISTRIBUTION WIDTH 18.1 % (11.7-14.4)
[2018-03-21] MEDS: HYDRALAZINE HCL 25 MG TAB PO SCH ×2 (07:53→16:35)
[2018-03-21] MEDS: AMIODARONE HCL 200 MG TAB PO SCH ×2 (07:54→16:35)
[2018-03-21] MEDS: AMLODIPINE BESYLATE 5 MG TAB PO SCH ×2 (07:54→16:36)
[2018-03-21] MEDS: SEVELAMER CARBONATE 800 MG TAB PO SCH ×2 (07:54→16:35)
[2018-03-21] MEDS: APIXAB 2.5 MG TABLET PO SCH ×2 (07:54→16:35)
[2018-03-21] MEDS: AZITHROMYCIN 500MG/NS 250 ML 250 ML IV SCH (08:39)
[2018-03-21] MEDS ORDERED: CARVEDILOL 25 MG PO SCH (09:00)
[2018-03-21] MEDS ORDERED: NON-FORMULARY MEDICATION ([Eliquis] 2.5 MG) PO SCH (09:00)
[2018-03-21] MEDS ORDERED: ISOSORBIDE MONONITRATE 20 MG TAB PO SCH (09:00)
[2018-03-21] MEDS ORDERED: ATORVASTATIN 20 MG TAB PO SCH ×2 (09:00→21:00)
[2018-03-21] MEDS ORDERED: TIOTROPIUM 18 MCG INH POWDER INH SCH (09:00)
[2018-03-21] MEDS ORDERED: FUROSEMIDE 40 MG TAB PO SCH (09:00)
[2018-03-21] MEDS ORDERED: FOLIC ACID PO SCH (09:00)
[2018-03-21] MEDS ORDERED: TRAZODONE HCL 50 MG TAB PO SCH ×2 (09:00→21:00)
[2018-03-21] MEDS ORDERED: PANTOPRAZOLE SOD 40 MG TABEC PO SCH (09:00)
[2018-03-21] MEDS ORDERED: FOLIC ACID/CYANOCOB/PYRIDOXINE TAB PO SCH (09:00)
[2018-03-21] MEDS ORDERED: VITAMIN B COMP W C PO SCH (09:00)
[2018-03-21] MEDS: METOPROLOL TARTRATE 25 MG TAB PO SCH ×2 (11:00→16:36)
[2018-03-21] MEDS ORDERED: CEFEPIME HCL 1 GM VIAL IV SCH (11:00)
[2018-03-21 12:14] LABS: CREATINE KINASE 66 IU/L (29-168)
[2018-03-21] MEDS ORDERED: DIGOXIN INJ 0.25 MG/ML 2 ML AMP IV ONE (12:30)
[2018-03-21] MEDS ORDERED: SODIUM CHLORIDE 0.9% 1000ML 2,000 ML ONE (12:59)
--- NOTE | 2018-03-21 13:15 | History and Physical ---
CHIEF COMPLAINT: "My heart was being fast." HISTORY OF PRESENT ILLNESS: A 68-year-old white woman who presents to [facility] with complaints of elevated heart rate. Patient denies any palpitations or lightheadedness. She does have a history of atrial fibrillation. In the emergency room, she was found to be in atrial fibrillation with rapid ventricular rate with heart rate 140 beats per minute. Patient denies any worsening of her chronic shortness of breath or chronic cough. She is being treated with oral Augmentin for presumed community-acquired pneumonia. Upon admission, the patient was found to have a B-type natriuretic peptide level of 4068. The patient states that she underwent hemodialysis on Monday March 19, 2018, but only 1.7 liters were removed because her weight was very close to her dry weight. She states over the last month, she has lost at least 10 pounds unintentionally. In the emergency room, patient had chest x-ray performed that revealed enlarged heart bilateral interstitial opacities with patch opacities in the bilateral mid and lower lungs. The patient has a pacemaker in place thus it was interrogated. No evidence of defibrillation was appreciated once this AICD was interrogated. The patient had 12-lead EKG done in August 2017, which revealed a left ventricular ejection fraction of 30 to 35%. REVIEW OF SYSTEMS GENERAL: The patient has lost 10-12 pounds in the last few weeks unintentionally. No fevers, chills, worsening fatigue. HEENT: No headache. No visual changes. CARDIOVASCULAR: Chest pain. No worsening or shortness breath. She does have chronic cough, slightly worse than usual because she was recently diagnosed with pneumonia. Denies any palpitations or lightheadedness. GI: No nausea, vomiting, or constipation. : Patient does not urinate. She is on hemodialysis. NEUROMUSCULAR: Globally weak, but denies any focal limb weakness. ALLERGIES: LORAZEPAM. PAST MEDICAL HISTORY 1. Recurrent bouts of pneumonia. 2. End-stage renal disease. 3. Chronic systolic and diastolic congestive heart failure. 4. Hypertensive heart disease. 5. COPD. 6. Tobacco abuse. 7. Pulmonary hypertension. 8. Atrial fibrillation. 9. Underweight. 10. Anemia secondary to coronary artery disease/chronic kidney disease. 11. Severe protein-calorie malnutrition. 12. Peripheral arterial disease. 13. Osteoporosis. 14. Major depressive disorder. 15. Cerebrovascular accident in June 2013. PAST SURGICAL HISTORY 1. Mitral valve replacement (Bovine) on July 2014. 2. Two coronary stents placement in 2009. 3. Right renal artery stent placement. 4. Lumbar spine surgery 2009. 5. Right subclavian hemodialysis catheter placement. 6. Left internal jugular hemodialysis catheter placement. 7. Left heart catheterization. 8. Right heart catheterization. 9. Multiple right-sided thoracentesis in 2014. 10. ICD placement. 11. Left upper extremity AV fistula placement. SOCIAL HISTORY: This woman is and lives with his . Patient is a homemaker. Patient does not drink alcohol, but she does smoke tobacco. FAMILY HISTORY: Multiple family members with coronary artery disease. HOME MEDICATIONS 1. Augmentin 875 mg p.o. b.i.d. 2. Acetaminophen with Codeine every 4 hours p.r.n. pain. 3. Amiodarone 100 mg b.i.d. 4. Amlodipine 5 mg b.i.d. 5. Atorvastatin 20 mg q.h.s. 6. Symbicort inhaler 160/4.5 two puffs daily. 7. Carvedilol 25 mg b.i.d. 8. Renal vitamin once daily. 9. Furosemide 80 mg daily. 10. Hydralazine 50 mg t.i.d. 11. Isosorbide mononitrate 60 mg daily. 12. Levalbuterol nebs every 6 hours. 13. Melatonin 3 mg q.h.s. 14. Pantoprazole 40 mg daily. 15. Sevelamer 800 mg t.i.d. 16. Spiriva inhaler 1 puff daily. 17. Trazodone 100 mg q.h.s. 18. Eliquis 2.5 mg b.i.d. PHYSICAL EXAMINATION GENERAL: This woman is awake, alert and fully oriented. is at bedside. VITAL SIGNS: Blood pressure currently 114/67, heart rate 92, its irregular, respiratory rate 22, ox saturation 96% on 2 liters oxygen, height is 5 feet 7-1/2 inches, weight is 110 pounds, BMI 16. Temperature is 96.0. INTEGUMENT: Skin is warm and dry. Patient's skin has a dusky hue. She also has slight pallor. No jaundice or diaphoresis. HEENT: Anicteric sclerae. Moist mucous membranes. Patient has hoarse muffled voice. NECK: Supple. She does have evidence of jugular venous distention. CARDIOVASCULAR: Distant heart sounds. Tachy heart rate with anirregular rhythm. Patient has S3 gallop. She also has distant heart sounds. LUNGS: Faint crackles bilaterally with diminished breath sounds at the bases. ABDOMEN: Benign. EXTREMITIES: No edema, but she has obvious muscle wasting. NEUROLOGIC: Intact. No gross focal deficits appreciated. DIAGNOSES 1. Eujyx-tv-facbsrl systolic and diastolic congestive heart failure. 2. Health care associated left lower lobe pneumonia, likely gram-negative allyson. 3. Atrial fibrillation with rapid ventricular rate. 4. Chronic obstructive pulmonary disease. 5. Underweight, body mass index 16. 6. End-stage renal disease. 7. Tobacco abuse. 8. Severe protein-calorie malnutrition. PLAN 1. I discussed the case with nephrology today and patient most likely undergo 2-hour session of hemodialysis later today to remove excess intravascular volume. 2. Discussed case with cardiology. 3. We will stop carvedilol and start metoprolol tartrate 25 mg p.o. b.i.d. 4. Intravenous antibiotics for pneumonia. 5. Consider proteins augmentation for patient's severe protein-calorie malnutrition. 6. I will recommend tobacco cessation. I spent 1 hour in the care of this patient. Job#: [id number] MAYDA ARMENTA
--- NOTE | 2018-03-21 16:53 | Consultation ---
DATE OF CONSULTATION: March 21, 2018 CARDIOLOGY CONSULTATION REQUESTING PHYSICIAN: Dr. Pyle. REASON FOR CONSULTATION: Chest pain. HISTORY OF PRESENT ILLNESS: This is a 68-year-old woman with end-stage renal disease on hemodialysis, chronic systolic heart failure status post ICD, status post prosthetic mitral valve replacement, paroxysmal atrial fibrillation on Eliquis, renal artery stenosis status post prior stents, carotid artery stenosis status post right carotid stent, COPD and anemia, who presents with complaints of tachycardia. The patient reports she had been feeling well until earlier this week when she noted her heart rate was elevated. She found her heart rate to be 120s on pulse oximetry on Wednesday. On Wednesday when her home health nurse came to visit her, her heart rate remained elevated and she was instructed to take an additional dose of her medication although patient is not sure which one. Her heart rate, however, remained high; and, so, she presented to the ER yesterday for further evaluation. She was found to be in atrial fibrillation with rapid ventricular response. She denied any chest pain, palpitations, edema, orthopnea or PND. She does endorse chronic shortness of breath. REVIEW OF SYSTEMS: Negative except as per HPI. PAST MEDICAL HISTORY 1. End-stage renal disease on hemodialysis. 2. Chronic systolic heart failure status post subcutaneous ICD. 3. Paroxysmal atrial fibrillation on Eliquis. 4. Carotid artery stenosis status post stent. 5. Renal artery stenosis status post stent. 6. Hypertension. 7. COPD. 8. Pulmonary hypertension. 9. Anemia of chronic disease. PAST SURGICAL HISTORY 1. Mitral valve replacement, bioprosthetic July 2014. 1. Lumbar spine surgery. 2. Subcutaneous ICD. 3. Left AV fistula. ALLERGIES: LORAZEPAM. MEDICATIONS: Please see medication list. SOCIAL HISTORY: Pertinent for tobacco use but no alcohol or drugs. FAMILY HISTORY: Noncontributory to current illness. PHYSICAL EXAMINATION VITAL SIGNS: Temperature 96 degrees, pulse 140, respiratory rate 20, blood pressure 92/52, oxygen saturation 96% on 2 liters nasal cannula. GENERAL: Cachectic, chronically ill-appearing woman, frail, no acute distress. HEENT: Normocephalic, atraumatic. Pupils equal, no scleral icterus. NECK: Supple. No thyromegaly or cervical lymphadenopathy. Bilateral carotid bruits. LUNGS: Crackles noted in bilateral bases. No wheezes. Otherwise clear to auscultation. CARDIOVASCULAR: Normal rate, tachycardic with irregularly irregular rhythm. ABDOMEN: Soft, nontender. EXTREMITIES: No edema. NEURO: Nonfocal exam. LABS: WBC 6.16, hemoglobin 9.7, hematocrit 29.5, platelets 194. Sodium 137, potassium 4, chloride 98, CO2 36, BUN 43, creatinine 5.33. BNP 4068. Troponin less than 0.001. CHEST X-RAY: Emphysematous changes in the lungs with bilateral interstitial and patchy opacities which could represent pulmonary edema and/or pneumonia. Nodular opacity in the right lower lung zone which could represent focal consolidation. Followup chest radiograph is suggested in 6 to 8 weeks to assess resolution. Small bilateral pleural effusions. ELECTROCARDIOGRAM: Sinus tachycardia. Left axis deviation. Left ventricular hypertrophy with QRS widening and repolarization abnormality. Cannot rule out septal infarct, age undetermined. TELEMETRY: Atrial fibrillation with rapid ventricular response. IMPRESSION 1. Kvzuc-zi-tjkaren systolic heart failure status post subcutaneous implantable cardioverter-defibrillator. 2. Left lower lobe pneumonia. 3. Atrial fibrillation with rapid ventricular response. 4. Carotid artery stenosis status post stent. 5. Renal artery stenosis status post intervention. 6. Hypertension. 7. Chronic obstructive pulmonary disease. 8. End-stage renal disease on hemodialysis. 9. Tobacco use. 10. History of bioprosthetic mitral valve replacement. RECOMMENDATIONS: Stop carvedilol. We will start metoprolol tartrate and titrate for heart rate control. Plan to transition to metoprolol succinate upon discharge. One dose of digoxin today for additional rate control. Continue patient on Eliquis. Antibiotics per primary service. Continue amiodarone, hydralazine and isosorbide mononitrate. Volume management per Nephrology given end-stage renal disease. They will attempt to pull additional fluid today given her elevated BNP and chest x-ray findings. Patient's last echocardiogram was in August of 2017 with moderately to severely impaired systolic function with EF between 30% and 35%, moderately enlarged right ventricle with normal systolic function, and an RVSP of 42 mmHg assuming an RA pressure of 8 mmHg. S-ICD interrogation demonstrated normal device function, no events, 41% battery life. Continue patient on telemetry. Thank you for this consult. We will continue to follow. Job#: [id number] EV MTDValeriano
[2018-03-21] MEDS ORDERED: ALBUMIN 25% 12.5GM 0.25 GM/ML BTL IV PRN (17:00)
[2018-03-21] MEDS ORDERED: SODIUM CHLORIDE 0.9% 1000ML 2,000 ML IV PRN (17:00)
[2018-03-21] MEDS ORDERED: SODIUM CHLORIDE 0.9% 250ML 500 ML IV PRN (17:00)
[2018-03-21] MEDS ORDERED: MANNITOL 25% 12.5GM/50 ML VIAL IV PRN (17:00)
[2018-03-21] MEDS ORDERED: METOPROLOL TART25 MG PO (17:21)
[2018-03-21] MEDS ORDERED: MELATONIN 3 MG TAB PO SCH (21:00)
[2018-03-21] MEDS ORDERED: CARVEDILOL 12.5 MG TAB PO SCH (21:39)
--- NOTE | 2018-03-28 16:10 | Discharge Summary ---
ADMIT DIAGNOSES 1. Acute on chronic systolic/diastolic congestive heart failure. 2. Left lower lobe pneumonia, likely gram negative allyson. 3. Atrial fibrillation with rapid ventricular rate. 4. Chronic obstructive pulmonary disease. 5. Underweight, body mass index 16. 6. End-stage renal disease. 7. Tobacco abuse. 8. Severe protein calorie malnutrition. DISCHARGE DIAGNOSES 1. Acute on chronic systolic/diastolic congestive heart failure, resolving. 2. Left lower lobe pneumonia, likely gram negative allyson, resolving. 3. End-stage renal disease. 4. Atrial fibrillation. 5. Chronic obstructive pulmonary disease. 6. Underweight, body mass index 16. 7. Tobacco abuse. 8. Severe protein calorie malnutrition. HOSPITAL COURSE: This is a 68-year-old white woman who was initially admitted to [facility] with a diagnosis of acute on chronic systolic/diastolic congestive heart failure and left lower lobe pneumonia, likely gram negative allyson. This woman also has an underlying history of end-stage renal disease. Patient states that 1 day prior to being admitted she underwent hemodialysis but they only removed 1 liter of fluid because her actual weight was actually lower than her calculated dry weight. During this hospitalization patient was seen by her stud master/mistress, namely Dr. Friedman, who performed an extra session of hemodialysis which she tolerated quite well. Patient was also seen by her director voice, namely Dr. Maxwell. Patient's hospitalization was unremarkable. She was started on intravenous antibiotics, namely cefepime, during this hospital stay for her pneumonia. Also during this hospitalization patient was found to have a B-type natriuretic peptide level of 4068, which is quite elevated. During this hospitalization patient had serial cardiac enzymes as well as electrocardiograms which did not reveal any evidence of acute myocardial ischemia or infarction. Patient's brief hospitalization was unremarkable. CONDITION ON DISCHARGE: Stable. DISCHARGE MEDICATIONS 1. Augmentin 875 mg p.o. b.i.d. for a total of 10 days. 2. Acetaminophen with codeine every 4 hours p.r.n. pain. 3. Amiodarone 100 mg b.i.d. 4. Amlodipine 5 mg b.i.d. 5. Atorvastatin 20 mg nightly. 6. Symbicort inhaler 160 mcg/4.5 mcg 2 puffs b.i.d. 7. Metoprolol tartrate 25 mg b.i.d. 8. Renal vitamins daily. 9. Furosemide 80 mg daily. 10. Hydralazine 50 mg t.i.d. 11. Isosorbide mononitrate 60 mg daily. 12. Levalbuterol nebulized treatments every 6 hours. 13. Melatonin 3 mg nightly. 14. Pantoprazole 40 mg daily. 15. Sevelamer 800 mg t.i.d. 16. Spiriva inhaler 1 puff daily. 17. Trazodone 100 mg nightly. 18. Eliquis 2.5 mg twice a day. 19. The patient was instructed to stop carvedilol. FOLLOWUP INSTRUCTIONS: The patient is instructed to follow up with her primary care physician, namely myself, within 7 days. Patient is instructed to continue her hemodialysis session Wednesday//Wednesday. Patient to follow up with Cardiology, namely Dr. Maxwell, within 2 weeks. DENNY MONTEMAYOR MD Job#: [id number] EV cc:MD ISABEL MITCHELL MD
--- NOTE | 2018-04-13 09:19 | Consultation ---
DATE OF CONSULTATION: March 21, 2018 REASON FOR CONSULTATION: End-stage renal disease and volume overload. The patient was seen and examined on March 21, 2018, at 1655. This is a late dictation. HISTORY OF PRESENT ILLNESS: Patient is a very pleasant 68-year-old female with a past medical history of ESRD, on hemodialysis on Wednesday, Wednesday and Wednesday, chronic CHF, hypertension, COPD, atrial fibrillation, was admitted with chest pain. The patient was found to have bilateral infiltrate and started on IV antibiotics. Currently, the patient states she is breathing better. PAST MEDICAL HISTORY: ESRD, chronic CHF, hypertension, COPD, pulmonary hypertension, atrial fibrillation, anemia of CKD, history of CVA in 2013, peripheral vascular disease, and osteoporosis. PAST SURGICAL HISTORY: Mitral valve replacement, bovine, in July of 2014, coronary artery stent, right renal artery stent, ICD placement, left upper extremity AV fistula. SOCIAL HISTORY: and lives with . No history of alcohol, but positive for smoking. No intravenous drug abuse. FAMILY HISTORY: Positive for coronary artery disease. ALLERGIES: LORAZEPAM. MEDICATIONS: As per MAR. REVIEW OF SYSTEMS: Pertinent positive as per HPI. PHYSICAL EXAMINATION VITALS: Blood pressure 127/75, pulse 115, respirations 20, temperature 97, and 100% on 2 L nasal cannula. GENERAL: Awake, alert and oriented times 3. Not in apparent distress. HEENT: PERRLA. Extraocular muscles intact. NECK: No JVD. HEART: S1 and S2. LUNGS: Decreased breath sounds at the bases. ABDOMEN: Soft. Bowel sounds positive. EXTREMITIES: No edema. NEUROLOGICAL: No focal deficits. LABS: Sodium 137, potassium 4, chloride 98, CO2 36, BUN 43, creatinine 5.3, glucose 108. White count 6.16, hemoglobin 9.7, and platelet count is 194,000. INR is 1.06. Chest x-ray done on admission with small bilateral pleural effusion, emphysematous changes of both lungs, bilateral interstitial and patchy opacity, pulmonary edema, plus or minus pneumonia. ASSESSMENT AND PLAN 1. End-stage renal disease with possible volume overload: Will do 2 hours of ultrafiltration today. If the patient stays here in the hospital, will do hemodialysis in the morning. 2. Hypertension, controlled. 3. Chronic obstructive pulmonary disease: Continue with the nebulizer treatments. 4. ?Pneumonia: On antibiotics per attending physician. I want to thank Dr. Pyle for this consult. The patient will be okay to be discharged after ultrafiltration today if breathing is better and if okay with attending physician. Job#: [id number] KAYA
[2018-05-24] MEDS ORDERED: PHENERGAN25 MG/1 ML PO (12:59)
== END 2018-03-21 18:26 | disposition home or self-care (01) ==
LOC: ER 16:44 → ERHOLD 18:44 → MED/SURG3 19:53 → IMCU 03-21 08:24
PROVIDERS: ADMIT Internal Medicine; ATTEND Internal Medicine
DX: I13.2 Hypertensive heart and chronic kidney disease with heart failure and with stage 5 chronic kidney disease, or end stage renal disease (principal); I50.43 Acute on chronic combined systolic (congestive) and diastolic (congestive) heart failure; J15.6 Pneumonia due to other Gram-negative bacteria; N18.6 End stage renal disease; J44.9 Chronic obstructive pulmonary disease, unspecified; Z99.2 Dependence on renal dialysis; D63.1 Anemia in chronic kidney disease; Z72.0 Tobacco use; F32.9 Major depressive disorder, single episode, unspecified; Z86.73 Personal history of transient ischemic attack (TIA), and cerebral infarction without residual deficits; Z82.49 Family history of ischemic heart disease and other diseases of the circulatory system; Z68.1 Body mass index [BMI] 19.9 or less, adult; E43 Unspecified severe protein-calorie malnutrition; Z95.810 Presence of automatic (implantable) cardiac defibrillator; I48.0 Paroxysmal atrial fibrillation; Z79.01 Long term (current) use of anticoagulants; Z95.2 Presence of prosthetic heart valve
CPT/HCPCS: 36415 ×2; 71045; 80048; 80053; 82550 ×2; 82553 ×2; 83735; 83880; 84484 ×2; 85025 ×2; 85610; 85730; 87040; 90935; 93005; 94640; 99284; G0378 ×2; J0456 ×2; J0692; J0696; J1160; J1940; J7030; S0164; 90962

== ENCOUNTER → 2018-05-25 | Day surgery (SDC) | payer MEDICARE ==
[2018-05-24 13:03] LABS: BASOPHILS # (AUTO) 0.1 (0.0-0.1); BASOPHILS % 1.2 % (0.0-1.0); EOSINOPHILS # (AUTO) 0.3 (0.0-0.4); EOSINOPHILS % 4.5 % (0.0-6.0); HEMATOCRIT 39.6 % (34.2-44.1); HEMOGLOBIN 12.8 g/dL (12.0-16.0); LYMPHOCYTES # (AUTO) 0.7 (1.0-3.2); LYMPHOCYTES % 12.6 % (18.0-39.1); MEAN CORPUSCULAR HEMOGLOBIN 31.3 pg (28-32); MEAN CORPUSCULAR HGB CONC 32.3 g/dL (31-35); MEAN CORPUSCULAR VOLUME 96.8 fL (81-99); MONOCYTES # (AUTO) 0.5 (0.2-0.8); MONOCYTES % 9.4 % (4.4-11.3); NEUTROPHILS # (AUTO) 4.1 (2.1-6.9); PLATELET COUNT 134 x10e3/uL (140-360); RED BLOOD COUNT 4.09 x10e6/uL (3.6-5.1)
[2018-05-24 13:16] LABS: INR 0.95; PROTHROMBIN TIME 13.5 seconds (11.9-14.5)
[2018-05-24 13:25] LABS: ALBUMIN 3.7 g/dL (3.5-5.0); ANION GAP 17.7 mmol/L (8-16); CALCIUM 10.1 mg/dL (8.4-10.2); CREATININE, SERUM 3.31 mg/dL (0.57-1.11); POTASSIUM 4.7 mmol/L (3.5-5.1)
[~2018-05-25] VITALS: Ht 170.2 cm; Wt 49.9 kg
[~2018-05-25] MED LIST changes: +ETOMIDATE 2 MG/ML 10 ML INJ IV ONE; +METOPROLOL TART25 MG PO; +PHENERGAN25 MG/1 ML PO
--- OUTSIDE RECORDS SUMMARY | 2018-05-25 12:02 | XMS REPORT | Summary of Care ---
Author Organization Unknown Address Unknown Phone Unavailable Encounter GIOVANA Ortiz(STACEY) [id number] Date(s): 06/18/14 - 06/18/[address] Discharge Disposition: Home Physician Attending: Shyam Armenta MD Physician_Referring: Shyam Armenta MD Reason for Visit HEART Vital Signs Most recent to 1 oldest [Reference Range]: Height 170.18 cm (06/18/14 4:56 PM) Temperature Oral 97.4 DegF [96.4-99.1 DegF] (06/18/14 4:56 PM) Systolic Blood 165 mmHg Pressure [90-140 *HI* mmHg] (06/18/14 4:56 PM) Diastolic Blood 83 mmHg Pressure [60-90 (06/18/14 4:56 PM) mmHg] Respiratory Rate 16 BRMIN [14-20 BRMIN] (06/18/14 4:56 PM) Peripheral Pulse 99 bpm Rate [60-100 bpm] (06/18/14 4:56 PM) Weight 60.994 kg (06/18/14 4:56 PM) Body Mass Index 21.06 m2 (06/18/14 4:56 PM) Problem List Condition Effective Dates Status Health Status Informant Anxiety(Confirmed) Active CHF - Congestive Active heart failure(Confirmed) Chronic back Active pain(Confirmed) COPD(Confirmed) Active Dyspnea(Confirmed) Resolved Endocarditis(Confirm Resolved ed) ESRD on Active hemodialysis(Confirm ed)1 Hyperlipidemia(Confi Active rmed) Hypertension(Confirm Active ed) MVP - Mitral valve Active prolapse(Confirmed) Renal failure, Active acute(Confirmed) Shortness of breath Active dyspnea(Confirmed) Smoker(Confirmed) Active TIA (transient < 06/14/13 Resolved ischemic attack)(Confirmed) Vascular Active disease(Confirmed) 1Dialysis T, TH, S Allergies, Adverse Reactions, Alerts Substance Reaction Severity Status NKDA Active Plastic Tape Active Medications levalbuterol Q6H, PRN, 0 Refill(s) Special Instructions: PRN Start Date: 06/18/14 Status: Suspended Tylenol PRN, 0 Refill(s) Start Date: 06/18/14 Status: Suspended Medications Administered During Your Visit No data available for this section Immunizations No data available for this section Social History Social History Type Response Smoking Status Current some day smoker, Type: Cigarettes, Lives with someone who smokes, Cigarette Smoking Last 365 Days Yes, Reg Smoking Cessation Counseling Yes
--- OUTSIDE RECORDS SUMMARY | 2018-05-25 12:02 | XMS REPORT | Summary of Care ---
Author Organization Unknown Address Unknown Phone Unavailable Encounter GIOVANA Ortiz(STACEY) [id number] Date(s): 07/11/14 - 07/11/[address] Discharge Disposition: Home Physician Attending: Al Christianson MD Physician_Referring: Tami Salas PA Reason for Visit SURGERY FOLLOW UP Vital Signs Most recent to 1 oldest [Reference Range]: Height 171 cm (07/11/14 1:50 PM) Temperature Oral 97.2 DegF [96.4-99.1 DegF] (07/11/14 1:50 PM) Systolic Blood 126 mmHg Pressure [90-140 (07/11/14 1:50 PM) mmHg] Diastolic Blood 64 mmHg Pressure [60-90 (07/11/14 1:50 PM) mmHg] Respiratory Rate 16 BRMIN [14-20 BRMIN] (07/11/14 1:50 PM) Peripheral Pulse 72 bpm Rate [60-100 bpm] (07/11/14 1:50 PM) Weight 62.006 kg (07/11/14 1:50 PM) Body Mass Index 21.21 m2 (07/11/14 1:50 PM) Problem List Condition Effective Dates Status [...] Status NKDA Active Plastic Tape Active Medications No data available for this section Medications Administered During Your Visit No data available for this section Immunizations No data available for this section Social History Social History Type Response Smoking Status Current every day smoker, Exposure to Tobacco Smoke None, Cigarette Smoking Last 365 Days No, Reg Smoking Cessation Counseling No
--- OUTSIDE RECORDS SUMMARY | 2018-05-25 12:02 | XMS REPORT | Continuity of Care Document ---
Author Author Koby bowman [facility] Interface Address Unknown Phone Unavailable Problems Problem Status Onset Date Classification Date Reported Comments Source EP STUDY / AFLUTTER ABLATION Active 05/19/2018 [facility] WOUND INFECTION Active 04/26/2018 [facility] SICD REMOVAL /C SINGLE CHAMBER ICD REIMP Active 04/15/2018 [facility] Atherosclerotic heart disease of [place] coronary artery with unspecified angina pectoris 08/07/2017 11/01/2017 [facility] UNK Active 07/14/2017 [facility] FOLLOW UP Active 06/05/2015 [facility] PLURAL EFFUSION Active 05/21/2015 [facility] PER IVON Active 05/01/2015 [facility] FOLLWO UP Active 04/03/2015 [facility] SURGICAL SITE BLEED, S/P PLUREX CATH PARISH Active 03/27/2015 [facility] RIGHT PLEURAL EFFUSION, COPD Active 03/21/2015 [facility] 585.6 Active 10/25/2014 [facility] HOSPITAL FOLLOW UP PER IVON Active 08/08/2014 [facility] PULMONARY EDEMA Active 08/06/2014 [facility] PLEURAL EFFUSION Active 07/19/2014 [facility] SOBOK PER [id number] Active 07/16/2014 [facility] 2 WKS FOLLOW UP Active 07/11/2014 [facility] SURGERY FOLLOW UP Active 07/02/2014 [facility] CHF Active 06/18/2014 [facility] HEART Active 06/11/2014 [facility] CATHETER REPLACEMENT Active 06/04/2014 [facility] 459.81 BILATERAL VENOUS INSUFFICIENCY Active 05/29/2014 [facility] TIA (<span ID="[id number]">Confirmed</span>) Resolved 06/14/2013 Problem 11/01/2017 [facility], RODOLFO Barriga, RODOLFO [facility] Anxiety Active Problem 11/01/2017 [facility], RODOLFO Barriga, RODOLFO [facility] CHF - Congestive heart failure Active Problem 11/01/2017 [facility], OPID [place], RODOLFO Bowman, [facility] Chronic back pain Active Problem 11/01/2017 [facility], OPID [place], RODOLFO Bowman, [facility] COPD Active Problem 11/01/2017 [facility], OPID [place], RODOLFO Bowman, [facility] Dyspnea Resolved Problem 11/01/2017 [facility], OPID [place], RODOLFO Bowman, [facility] Endocarditis Resolved Problem 11/01/2017 [facility], RODOLFO Barriga, RODOLFO Bowman, [facility] ESRD on hemodialysis<sup>1</sup> Active Problem 11/01/2017 Dialysis T, TH, S [facility], OPIValeriano HinsonHarmony, RODOLFO Bowman, [facility] Hyperlipidemia Active Problem 11/01/2017 [facility], OPID Lin[place], RODOLFO Bowman, [facility] Hypertension Active Problem 11/01/2017 [facility], RODOLFO Barriga, RODOLFO Bowman, [facility] MVP - Mitral valve prolapse Active Problem 11/01/2017 [facility], RODOLFO Barriga, RODOLFO Bowman, [facility] Renal failure, acute Active Problem 11/01/2017 [facility], OPID [place], RODOLFO Bowman, [facility] Shortness of breath dyspnea Active Problem 11/01/2017 [facility], OPID [place], RODOLFO Bwoman, [facility] Smoker Active Problem 11/01/2017 [facility], OPID [place], RODOLFO Bowman, [facility] Vascular disease Active Problem 11/01/2017 [facility], SAURABHD [place], RODOLFO Bowman, [facility] Occlusion and stenosis of bilateral carotid arteries 11/01/2017 [facility] Hypertensive heart and chronic kidney disease with heart failure and with stage 5 chronic kidney disease, or end stage renal disease 11/01/2017 [facility] End stage renal disease 11/01/2017 [facility] Chronic systolic heart failure 11/01/2017 [facility] Dependence on renal dialysis 11/01/2017 [facility] Nicotine dependence, cigarettes, uncomplicated 11/01/2017 [facility] use of anticoagulants 11/01/2017 [facility] Personal history of transient ischemic attack , and cerebral infarction without residual deficits 11/01/2017 [facility] Pure hypercholesterolemia, unspecified 11/01/2017 [facility] Chronic obstructive pulmonary disease, unspecified 11/01/2017 [facility] Presence of cardiac pacemaker 11/01/2017 [facility] PLEURAL EFFUSION, NOT ELSEWHERE CLASSIFI Active [facility] VENOUS INSUFFICIENCY NOS Active [facility] ROUTINE MEDICAL EXAM Active [facility] CHF NOS Active [facility] END STAGE RENAL DISEASE Active [facility] PLEURAL EFFUSION NOS Active [facility] ADMINISTRTVE ENCOUNT NOS Active [facility] MEDICAL SERVICES NOT AVAILABLE IN HOME Active [facility] POSTPROCEDURAL HEMOR/HEMTOM OF THE SPLEE Active [facility] CHRONIC OBSTRUCTIVE PULMONARY DISEASE W Active [facility] ATHSCL HEART DISEASE OF [place] CORONARY Active [facility] Medications Medication Details Route Status Patient Instructions Ordering Provider Order Date Source Nitroglycerin 0.4 mg, 1 tab, Route: SL, Drug form: TAB, Q5Min, Dosing Weight 54.636, kg, PRN Chest Pain, Start date: 07/26/17 8:27:00 DESIGNER/WRITER, Duration: 3 doses or times, Stop date: Limited # of timesNotes: (Same as:N itroquick, Nitrostat) "Do Not Crush" Sublingual tablet Inactive 07/26/2017 [facility] Sodium Chloride 0.9% IV 500 mL 500 mL, Rate: 20 ml/hr, Infuse over: 25 hr, Route: IV, Dosing Weight 54.636 kg, Total Volume: 500, Start date: 07/26/17 8:27:00 DESIGNER/WRITER, Duration: 24 hr, Stop date: 07/27/17 8:26:00 DESIGNER/WRITER, 1.63, m2 Inactive 07/26/2017 [facility] Benadryl 50 mg, Route: PO, ONCE, Dosing Weight 54.636, kg, Start date: 07/26/17 7:13:00 DESIGNER/WRITER, Stop date: 07/26/17 7:13:00 DESIGNER/WRITER Inactive 07/26/2017 [facility] Promethazine Hydrochloride 25 MG Rectal Suppository [Phenergan] See Instructions, PRN Nausea & Vomiting, 1 supp OK Q12H as needed, 0 Refill(s) Active 07/26/2017 [facility] rivaroxaban 20 MG Oral Tablet [Xarelto] 20 mg=1 tab, PO, QPM, # 30 tab, 3 Refill(s) Active 07/26/2017 [facility] sennosides, PRISON 0 Refill(s) Active 07/23/2017 [facility] amLODIPine 5 mg oral tablet 5 mg=1 tab, PO, Daily, # 30 tab, 0 Refill(s) Active 07/23/2017 [facility] Lorazepam 1 MG Oral Tablet 0.5 mg=0.5 tab, PO, Daily, PRN Anxiety, # 30 tab, 0 Refill(s) No Longer Active 07/23/2017 [facility] meclizine 12.5 mg oral tablet 12.5 mg=1 tab, PO, TID, PRN Other-See Comments, t-th-sat dyalisis, # 30 tab, 0 Refill(s) Active 07/23/2017 [facility] lisinopril 5 mg oral tablet 5 mg=1 tab, PO, Daily, # 30 tab, 0 Refill(s) Active 07/23/2017 [facility] Furosemide 20 MG Oral Tablet [Lasix] 20 mg=1 tab, PO, Daily, # 30 tab, 0 Refill(s) Active 07/23/2017 [facility] 24 HR Isosorbide Mononitrate 60 MG Extended Release Tablet [Imdur] 60 mg=1 tab, PO, QAM, # 30 tab, 0 Refill(s) Active 07/23/2017 [facility] Acetaminophen 325 MG / Hydrocodone Bitartrate 5 MG Oral Tablet [[place] 5/325] 1 tab, PO, Q4-6H, PRN, # 30 tab, 0 Refill(s) Active 07/23/2017 [facility] Folic Acid 1 MG Oral Tablet 1 mg=1 tab, PO, Daily, # 30 tab, 0 Refill(s) Active 07/23/2017 [facility] sacubitril 49 MG / valsartan 51 MG Oral Tablet [Entresto] 1 tab, PO, BID, # 28 tab, 0 Refill(s) Active 07/23/2017 [facility] albuterol 90 mcg/inh inhalation aerosol 2 puff, INHALATION, QID, # 17 gm, 0 Refill(s) Active 07/23/2017 [facility] apixaban 2.5 MG Oral Tablet [Eliquis] 2.5 mg, PO, Q12H, last dose 07/23/17 pm per MD, 0 Refill(s) No Longer Active 07/23/2017 [facility] AMIODarone 200 mg oral tablet 200 mg=1 tab, PO, BID, # 60 tab, 0 Refill(s) Active 07/23/2017 [facility] Albuterol 0.83 MG/ML Inhalant Solution 2.49 mg=3 mL, NEB, Q6H, PRN as needed for shortness of breath, # 120 ea, 3 Refill(s) Active 07/23/2017 [facility] Cephalexin 500 MG Oral Capsule [Keflex] 500 mg=1 cap, PO, BID, # 20 cap, 0 Refill(s) Active 03/29/2015 [facility] Acetaminophen 325 MG / Hydrocodone Bitartrate 5 MG Oral Tablet [[place] 5/325] 1 tab, PO, Q4-6H, PRN Pain Score 7-10, X 5 day, # 30 tab, 0 Refill(s), called to pharmacy Active 03/28/2015 [facility] Colchicine 0.3 mg, 0.5 tab, Route: PO, Drug form: TAB, Q72H, Dosing Weight 57.727, kg, Start date: 08/09/14 16:00:00, Duration: 30 day, Stop date: 09/05/14 16:00:00 No Longer Active 08/09/2014 [facility] tiotropium 0.018 MG/ACTUAT Inhalant Powder [Spiriva] 18 microgram, 1 inhalation, Route: INHALATION, Drug form: CAP, Daily, Dosing Weight 57.727, kg, Start date: 08/09/14 9:00:00, Duration: 30 day, Stop date: 09/07/14 9:00:00Notes: (Same As: Spiriva). No Longer Active 08/09/2014 [facility] tiotropium 0.018 MG/ACTUAT Inhalant Powder [Spiriva] 18 microgram=1 inhalation, INHALATION, Daily, # 30 ea, 6 Refill(s) Active 08/08/2014 [facility] Nicotine 21 mg, 1 patch, Route: TOP, Drug form: ERFILM, Daily, Dosing Weight 57.727, kg, Start date: 08/08/14 9:00:00, Duration: 30 day, Stop date: 09/06/14 9:00:00Notes: (Same as: Habitrol) "Remove old patch before application of new patch" Inactive 08/08/2014 [facility] Habitrol 21 mg, 1 patch, Route: TOP, Drug form: ERFILM, Daily, Dosing Weight 57.727, kg, Priority: STAT, Start date: 08/08/14 0:24:00, Duration: 30 day, Stop date: 09/06/14 9:00:00Notes: (Same as: Habitrol) &quo t;Remove old patch before application of new patch" Inactive 08/08/2014 [facility] Promethazine 25 mg, 2 tab, Route: PO, Drug form: TAB, BID, Dosing Weight 57.727, kg, PRN as needed for nausea/vomiting, Start date: 08/07/14 19:06:00, Duration: 30 day, Stop date: 09/06/14 19:05:00Notes: (Same as : Phenergan) No Longer Active 08/08/2014 [facility] Protonix 40 mg, 1 tab, Route: PO, Drug form: ECTAB, Daily, Dosing Weight 57.727, kg, Start date: 08/07/14 9:00:00, Duration: 30 day, Stop date: 09/05/14 9:00:00Notes: Tablet should not be chewed or crushed. (Same as: Protonix) No Longer Active 08/07/2014 [facility] iodixanol 80 mL, Route: IVP, Drug Form: SOLN, Dosing Weight 57.727, kg, ONCALL, STAT, Start date: 08/07/14 0:07:00, Duration: 1 doses or times, Dose=2.2ml/kg, Max ffel=[id number] -- "To be infused by Radiology Staff ONLY"Special Instructions: Dose=2.2ml/kg, Max usev=[id number] -- "To be infused by Radiology Staff ONLY" Inactive 08/07/2014 [facility] Albuterol 0.833 MG/ML / Ipratropium [place] 0.167 MG/ML Inhalant Solution [DuoNeb] 3 mL, Route: INHALATION, Drug Form: SOLN, Dosing Weight 57.727, kg, RQ6H, Start date: 08/06/14 21:13:00, Stop date: 09/05/14 20:00:00Notes: (Same as: Duoneb) No Longer Active 08/07/2014 [facility] Trazodone 50 mg, 1 tab, Route: PO, Drug form: TAB, Bedtime, Dosing Weight 57.727, kg, Start date: 08/06/14 21:00:00, Duration: 30 day, Stop date: 09/04/14 21:00:00Notes: (Same As: Desyrel) No Longer Active 08/07/2014 [facility] Lipitor 20 mg, 1 tab, Route: PO, Drug form: TAB, Bedtime, Dosing Weight 57.727, kg, Start date: 08/06/14 21:00:00, Duration: 30 day, Stop date: 09/04/14 21:00:00Notes: (Same As: Lipitor) No Longer Active 08/07/2014 [facility] Renvela 800 mg, 1 tab, Route: PO, Drug form: TAB, TID, Dosing Weight 57.727, kg, Start date: 08/06/14 17:00:00, Duration: 30 day, Stop date: 09/05/14 13:00:00Notes: Same as: Renvela No Longer Active 08/06/2014 [facility] sennosides, PRISON 8.6 mg, 1 tab, Route: PO, Drug Form: TAB, Dosing Weight 57.727, kg, BID, Start date: 08/06/14 17:00:00, Duration: 30 day, Stop date: 09/05/14 9:00:00Notes: (Same as: Senokot) No Longer Active 08/06/2014 [facility] Coreg CR 25 mg, Route: PO, Drug form: ERCAP, BID, Dosing Weight 57.727, kg, Start date: 08/06/14 17:00:00, Duration: 30 day, Stop date: 09/05/14 9:00:00 Inactive 08/06/2014 [facility] Colchicine 0.6 MG Oral Tablet 0.6 mg, 1 tab, Route: PO, Drug form: TAB, ONCE, Dosing Weight 57.727, kg, Start date: 08/06/14 15:38:00, Stop date: 08/06/14 15:38:00 Inactive 08/06/2014 [facility] aspirin 81 mg, 1 tab, Route: PO, Drug form: ECTAB, Daily, Dosing Weight 57.727, kg, Priority: NOW, Start date: 08/06/14 13:54:00, Duration: 30 day, Stop date: 09/05/14 9:00:00Notes: Do not crush or chew. (Same As: Ecotrin) No Longer Active 08/06/2014 [facility] Coreg 25 mg, 1 tab, Route: PO, Drug form: TAB, Q12H, Priority: NOW, Start date: 08/06/14 13:54:00, Duration: 30 day, Stop date: 09/05/14 9:00:00Notes: Give with food. (Same As: Coreg) No Longer Active 08/06/2014 [facility] Lisinopril 5 mg, 1 tab, Route: PO, Drug form: TAB, Daily, Dosing Weight 57.727, kg, Priority: NOW, Start date: 08/06/14 13:53:00, Duration: 30 day, Stop date: 09/05/14 9:00:00Notes: (Same as: Prinivil, Zestril) No Longer Active 08/06/2014 [facility] Acetaminophen 300 MG / Codeine Phosphate 30 MG Oral Tablet [Tylenol with Codeine #3] 1 tab, Route: PO, Drug Form: TAB, Dosing Weight 57.727, kg, Q4H, PRN Pain 4-6/Temp > 100.4 F, Start date: 08/06/14 13:04:00, Duration: 30 day, Stop date: 09/05/14 13:03:00Notes: Do not exceed 4gm/day of acetaminophen. (Same as: Tylenol with Codeine # 3) No Longer Active 08/06/2014 [facility] Tylenol PRN, 0 Refill(s) On Hold 06/18/2014 [facility] Levalbuterol Q6H, PRN, 0 Refill(s)Special Instructions: PRN On Hold 06/18/2014 [facility] Allergies, Adverse Reactions, Alerts Substance Category Reaction Severity Reaction type Status Date Reported Comments Source Plastic Tape Assertion Drug allergy Active [facility] morphine Assertion Drug allergy Active [facility] Ativan Assertion Drug allergy Active [facility] Immunizations Immunization Date Given Site Status Last Updated Comments Source Results Order Name Results Value Reference Range Date Interpretation Comments Source Chest 2 views DX Chest 2 views DX Patient Name: MELISSA ARAIZA : 1950; Age: 68 years y/o Female MR: [id number] Study: Chest 2 views DX 04/22/2018 3:00 AM DESIGNER/WRITER Ordering Physician: Alyssa Plaza MD Comparison: Chest radiograph 04/21/2018 Clinical Indication: Heart failure - Status post PPM/ICD Implantation Findings: Stable position of right chest wall defibrillator with intact lead overlying the right ventricle. Decreased hazy airspace opacities throughout the lungs with persistent prominence of the interstitial markings. Similar small right pleural effusion. Emphysematous changes of the lung apices. No pneumothorax. Stable enlargement of cardiac silhouette. Atherosclerotic calcifications of the aortic arch. Intact sternotomy wires. Diffusely decreased bone mineralization. IMPRESSION: Decreased pulmonary edema. Stable small right pleural effusion. SL: [id number] 04/22/2018 - - Read by: Tee Dickens Dictated Date/time: 04/22/18 09:08 Electronically Signed by: Tee Dickens 04/22/18 09:10 FINAL REPORT [facility] Chest 1 v for Placement DX Chest 1 v for Placement DX 1 VIEW CXR. PORTABLE EXAM 3:41 PM HISTORY: Post pacemaker placement. COMPARISON: 05/29/2015 chest x-ray. Transvenous pacemaker is been placed on the right and appears well-positioned. No pneumothorax. Diffuse airspace and interstitial process bilaterally and small bilateral pleural effusions. Cardiomediastinal silhouette stable. Bones intact. Sternal suture wires present. IMPRESSION: Pacemaker appears well positioned without pneumothorax. Pulmonary edema. END OF IMPRESSION SL: [id number] 04/21/2018 - - Read by: Jacob Juárez MD Dictated Date/time: 04/21/18 15:58 Electronically Signed by: Jacob Juárez MD 04/21/18 15:59 FINAL REPORT [facility] CHEM PANEL A/G Ratio 0.8 0.7 - 1.6 07/23/2017 [facility] CHEM PANEL Globulin 4.0 g/dL 2.7 - 4.2 07/23/2017 [facility] CHEM PANEL AGAP 15.7 meq/L 10.0 - 20.0 07/23/2017 [facility] CHEM PANEL B/C Ratio 7 6 - 25 07/23/2017 [facility] CHEM PANEL eGFR 9 mL/min/1.73m2 07/23/2017 Result Comment: The eGFR is calculated using the CKD-EPI formula. In most young, healthy individuals the eGFR will be >90 mL/min/1.73m2. The eGFR declines with age. An eGFR of 60-89 may be normal in some populations, particularly the elderly, for whom the CKD-EPI formula has not been extensively validated. Use of the eGFR is not recommended in the following populations: Individuals with unstable creatinine concentrations, including patients and those with serious co-morbid conditions. Patients with extremes in muscle mass or diet. The data above are obtained from the National Kidney Disease Education Program (NKDEP) which additionally recommends that when the eGFR is used in patients with extremes of body mass index for purposes of drug dosing, the eGFR should be multiplied by the estimated BMI. [facility] CHEM PANEL Potassium Lvl 4.7 meq/L 3.5 - 5.1 07/23/2017 [facility] CHEM PANEL Creatinine Lvl 4.97 mg/dL 0.50 - 1.40 07/23/2017 [facility] CHEM PANEL Sodium Lvl 134 meq/L 135 - 145 07/23/2017 [facility] CHEM PANEL Chloride Lvl 95 meq/L 95 - 109 07/23/2017 [facility] CHEM PANEL Glucose Lvl 99 mg/dL 70 - 99 07/23/2017 [facility] CHEM PANEL BUN 34 mg/dL 7 - 22 07/23/2017 [facility] CHEM PANEL ALT 11 unit/L 0 - 65 07/23/2017 [facility] CHEM PANEL AST 11 unit/L 0 - 37 07/23/2017 [facility] CHEM PANEL Bili Total 0.5 mg/dL 0.2 - 1.3 07/23/2017 [facility] CHEM PANEL Alk Phos 126 unit/L 39 - 136 07/23/2017 [facility] CHEM PANEL Total Protein 7.4 g/dL 6.4 - 8.4 07/23/2017 [facility] CHEM PANEL Calcium Lvl 8.8 mg/dL 8.5 - 10.5 07/23/2017 [facility] CHEM PANEL CO2 28 meq/L 24 - 32 07/23/2017 [facility] CHEM PANEL Albumin Lvl 3.4 g/dL 3.5 - 5.0 07/23/2017 [facility] HEMATOLOGY Eosinophils # 0.3 K/CMM 0.0 - 0.5 07/23/2017 [facility] HEMATOLOGY Monocytes # 0.6 K/CMM 0.0 - 0.8 07/23/2017 [facility] HEMATOLOGY Basophils # 0.1 K/CMM 0.0 - 0.2 07/23/2017 [facility] Lymphocytes # 0.8 K/CMM 1.0 - 5.5 07/23/2017 [facility] Segs-Bands # 3.5 K/CMM 1.5 - 8.1 07/23/2017 [facility] Basophils 1.8 % 0.0 - 1.0 07/23/2017 [facility] Segs 65.0 % 45.0 - 75.0 07/23/2017 [facility] Monocytes 11.8 % 2.0 - 12.0 07/23/2017 [facility] Lymphocytes 15.5 % 20.0 - 40.0 07/23/2017 [facility] Eosinophils 5.9 % 0.0 - 4.0 07/23/2017 [facility] RDW 17.3 % 11.5 - 14.5 07/23/2017 [facility] MCHC 33.4 g/dL 32.0 - 36.0 07/23/2017 [facility] MCH 30.4 pg 27.0 - 31.0 07/23/2017 [facility] Hct 32.3 % 36.0 - 48.0 07/23/2017 [facility] MCV 90.8 fL 80.0 - 98.0 07/23/2017 [facility] RBC 3.56 M/CMM 4.20 - 5.40 07/23/2017 [facility] Hgb 10.8 g/dL 12.0 - 16.0 07/23/2017 [facility] HEMATOLOGY WBC 5.3 K/CMM 3.7 - 10.4 07/23/2017 [facility] HEMATOLOGY MPV 7.8 fL 7.4 - 10.4 07/23/2017 [facility] HEMATOLOGY Platelet 176 K/CMM 133 - 450 07/23/2017 [facility] LIPIDS VLDL 22 07/23/2017 [facility] LDL (Calculated) 76 mg/dL <=99 mg/dL 07/23/2017 [facility] Chol 155 mg/dL <=199 mg/dL 07/23/2017 [facility] HDL 57 mg/dL >=61 mg/dL 07/23/2017 [facility] LIPIDS Trig 109 mg/dL <=149 mg/dL 07/23/2017 [facility] CHD Risk 2.72 3.90 - 5.80 07/23/2017 [facility] Chest 2 views DX Chest 2 views DX INDICATION: Shortness of breath. PROCEDURE: Chest, 2 view. FINDINGS: Compared with March 27, 2015. There is no change in appearance of a pacemaker with battery pack over the left lateral chest and electrodes rejected over the mediastinum and left hilum. Tubing is projected over the neck base, and multiple metal clips are also projected over the right neck base. The clips are unchanged. A drainage tube is present in the right pleural space. Its position has changed somewhat from the comparison study. Appears coiled superficially, and the tip is in the right lateral pleural space inferiorly. Heart is enlarged although the right heart border is silhouetted by pleural effusion making exact determination difficult. It appears grossly unchanged. No mediastinal or hilar masses are present. Calcifications are present in the aorta at the arch. The right pleural effusion has increased in amount compared with one week earlier. There are prominent interstitial markings bilaterally, and these appear more obvious than on the comparison study. There is mild blunting of the left CP angle possibly related to chronic changes or to a small left pleural effusion. IMPRESSION: 1. The right pleural effusion has increased in extent. There is no right-sided pneumothorax. 2. There is prominent interstitial markings bilaterally. These may be related to pulmonary edema or underlying lung disease. 3. Cardiomegaly. This is unchanged. 04/03/2015 - - Read by: Haseeb Khalil MD Dictated Date/time: 04/03/15 10:28 Electronically Signed by: Haseeb Khalil MD 04/03/15 10:37 FINAL REPORT [facility] CHEM PANEL Phosphorus 3.0 mg/dL 2.5 - 4.5 08/08/2014 [facility] CHEM PANEL eGFR 10 mL/min/1.73m2 08/08/2014 1Result Comment: The eGFR is calculated using the CKD-EPI formula. In most young, healthy individuals the eGFR will be >90 mL/min/1.73m2. The eGFR declines with age. An eGFR of 60-89 may be normal in some populations, particularly the elderly, for whom the CKD-EPI formula has not been extensively validated. Use of the eGFR is not recommended in the following populations: Individuals with unstable creatinine concentrations, including patients and those with serious co-morbid conditions. Patients with extremes in muscle mass or diet. The data above are obtained from the National Kidney Disease Education Program (NKDEP) which additionally recommends that when the eGFR is used in patients with extremes of body mass index for purposes of drug dosing, the eGFR should be multiplied by the estimated BMI. [facility] CHEM PANEL AGAP 13.4 meq/L 10.0 - 20.0 08/08/2014 [facility] CHEM PANEL CO2 26 meq/L 24 - 32 08/08/2014 [facility] CHEM PANEL Total Protein 5.6 g/dL 6.4 - 8.4 08/08/2014 [facility] CHEM PANEL Calcium Lvl 8.6 mg/dL 8.5 - 10.5 08/08/2014 [facility] CHEM PANEL B/C Ratio 4 6 - 25 08/08/2014 [facility] CHEM PANEL Albumin Lvl 2.3 g/dL 3.5 - 5.0 08/08/2014 [facility] CHEM PANEL A/G Ratio 0.7 0.7 - 1.6 08/08/2014 [facility] CHEM PANEL Globulin 3.3 g/dL 2.0 - 4.0 08/08/2014 [facility] CHEM PANEL ALT 10 unit/L 0 - 65 08/08/2014 [facility] CHEM PANEL AST 15 unit/L 0 - 37 08/08/2014 [facility] CHEM PANEL Bili Total 0.2 mg/dL 0.2 - 1.3 08/08/2014 [facility] CHEM PANEL Alk Phos 85 unit/L 39 - 136 08/08/2014 [facility] CHEM PANEL BUN 17 mg/dL 7 - 22 08/08/2014 [facility] CHEM PANEL Glucose Lvl 119 mg/dL 70 - 99 08/08/2014 4Interpretive Data: Adult reference range values reflect the clinical guidelines of the [place] [employer]. [facility] CHEM PANEL Creatinine Lvl 4.5 mg/dL 0.5 - 1.4 08/08/2014 [facility] CHEM PANEL Potassium Lvl 4.4 meq/L 3.5 - 5.1 08/08/2014 [facility] CHEM PANEL Chloride Lvl 104 meq/L 95 - 109 08/08/2014 [facility] CHEM PANEL Sodium Lvl 139 meq/L 135 - 145 08/08/2014 [facility] CHEM PANEL Magnesium Lvl 1.9 mg/dL 1.8 - 2.4 08/08/2014 [facility] HEMATOLOGY PTT 31.9 s 22.9 - 35.8 08/08/2014 14Interpretive Data: Heparin Therapeutic Range: 57 - 92 Seconds [facility] HEMATOLOGY PT 13.5 s 12.0 - 14.7 08/08/2014 [facility] HEMATOLOGY INR 1.03 0.85 - 1.17 08/08/2014 11Interpretive Data: RECOMMENDED RANGES FOR PROTIME INR: 2.0-3.0 for most medical and surgical thromboembolic states. 2.5-3.5 for artificial heart valves and recurrent embolism. INR SHOULD BE USED ONLY FOR PATIENTS ON STABLE ANTICOAGULANT THERAPY. [facility] HEMATOLOGY MPV 7.5 fL 7.4 - 10.4 08/08/2014 [facility] HEMATOLOGY Hct 29.5 % 36.0 - 48.0 08/08/2014 [facility] HEMATOLOGY Hgb 9.8 g/dL 12.0 - 16.0 08/08/2014 [facility] HEMATOLOGY MCV 91.6 fL 80.0 - 98.0 08/08/2014 [facility] HEMATOLOGY WBC 8.6 K/CMM 3.7 - 10.4 08/08/2014 [facility] HEMATOLOGY RBC 3.22 M/CMM 4.20 - 5.40 08/08/2014 [facility] HEMATOLOGY MCHC 33.2 g/dL 32.0 - 36.0 08/08/2014 [facility] HEMATOLOGY Platelet 256 K/CMM 133 - 450 08/08/2014 [facility] HEMATOLOGY MCH 30.4 pg 27.0 - 31.0 08/08/2014 [facility] HEMATOLOGY RDW 18.3 % 11.5 - 14.5 08/08/2014 [facility] HEMATOLOGY Lymphocytes # 1.7 K/CMM 1.0 - 5.5 08/08/2014 [facility] HEMATOLOGY Monocytes # 0.8 K/CMM 0.0 - 0.8 08/08/2014 [facility] HEMATOLOGY Basophils # 0.1 K/CMM 0.0 - 0.2 08/08/2014 [facility] HEMATOLOGY Eosinophils # 1.0 K/CMM 0.0 - 0.5 08/08/2014 [facility] HEMATOLOGY Basophils 1.2 % 0.0 - 1.0 08/08/2014 [facility] HEMATOLOGY Lymphocytes 19.6 % 20.0 - 40.0 08/08/2014 [facility] HEMATOLOGY Eosinophils 12.2 % 0.0 - 4.0 08/08/2014 [facility] HEMATOLOGY Segs-Bands # 4.9 K/CMM 1.5 - 8.1 08/08/2014 [facility] HEMATOLOGY Monocytes 9.5 % 2.0 - 12.0 08/08/2014 [facility] HEMATOLOGY Segs 57.5 % 45.0 - 75.0 08/08/2014 [facility] CARDIAC ENZYMES BNP null <=100 pg/mL 08/07/2014 7Interpretive Data: Elevated results are in line with increasing severity of congestive heart failure. Minor elevations between 100 and 300 may be seen with Myocardial Ischemia, Sodium retaining drugs, and compensated/treated heart failure. [facility] CHEM PANEL Phosphorus 3.4 mg/dL 2.5 - 4.5 08/07/2014 [facility] CHEM PANEL Magnesium Lvl 1.8 mg/dL 1.8 - 2.4 08/07/2014 [facility] CHEM PANEL eGFR 8 mL/min/1.73m2 08/07/2014 2Result Comment: The eGFR is calculated using the CKD-EPI formula. In most young, healthy individuals the eGFR will be >90 mL/min/1.73m2. The eGFR declines with age. An eGFR of 60-89 may be normal in some populations, particularly the elderly, for whom the CKD-EPI formula has not been extensively validated. Use of the eGFR is not recommended in the following populations: Individuals with unstable creatinine concentrations, including patients and those with serious co-morbid conditions. Patients with extremes in muscle mass or diet. The data above are obtained from the National Kidney Disease Education Program (NKDEP) which additionally recommends that when the eGFR is used in patients with extremes of body mass index for purposes of drug dosing, the eGFR should be multiplied by the estimated BMI. [facility] CHEM PANEL ALT null 0 - 65 08/07/2014 [facility] CHEM PANEL AST 9 unit/L 0 - 37 08/07/2014 [facility] CHEM PANEL Alk Phos 86 unit/L 39 - 136 08/07/2014 [facility] CHEM PANEL Bili Total 0.5 mg/dL 0.2 - 1.3 08/07/2014 [facility] CHEM PANEL Glucose Lvl 102 mg/dL 70 - 99 08/07/2014 5Interpretive Data: Adult reference range values reflect the clinical guidelines of the [place] [employer]. [facility] CHEM PANEL BUN 20 mg/dL 7 - 22 08/07/2014 [facility] CHEM PANEL Creatinine Lvl 5.4 mg/dL 0.5 - 1.4 08/07/2014 [facility] CHEM PANEL Chloride Lvl 104 meq/L 95 - 109 08/07/2014 [facility] CHEM PANEL Sodium Lvl 138 meq/L 135 - 145 08/07/2014 [facility] CHEM PANEL Potassium Lvl 4.1 meq/L 3.5 - 5.1 08/07/2014 [facility] CHEM PANEL Total Protein 5.3 g/dL 6.4 - 8.4 08/07/2014 [facility] CHEM PANEL CO2 28 meq/L 24 - 32 08/07/2014 [facility] CHEM PANEL AGAP 10.1 meq/L 10.0 - 20.0 08/07/2014 [facility] CHEM PANEL Calcium Lvl 8.9 mg/dL 8.5 - 10.5 08/07/2014 [facility] CHEM PANEL B/C Ratio 4 6 - 25 08/07/2014 [facility] CHEM PANEL Albumin Lvl 2.3 g/dL 3.5 - 5.0 08/07/2014 [facility] CHEM PANEL Globulin 3.0 g/dL 2.0 - 4.0 08/07/2014 [facility] CHEM PANEL A/G Ratio 0.8 0.7 - 1.6 08/07/2014 [facility] HEMATOLOGY INR 1.02 0.85 - 1.17 08/07/2014 12Interpretive Data: RECOMMENDED RANGES FOR PROTIME INR: 2.0-3.0 for most medical and surgical thromboembolic states. 2.5-3.5 for artificial heart valves and recurrent embolism. INR SHOULD BE USED ONLY FOR PATIENTS ON STABLE ANTICOAGULANT THERAPY. [facility] HEMATOLOGY PTT 28.0 s 22.9 - 35.8 08/07/2014 15Interpretive Data: Heparin Therapeutic Range: 57 - 92 Seconds [facility] HEMATOLOGY PT 13.4 s 12.0 - 14.7 08/07/2014 [facility] HEMATOLOGY Segs 57.5 % 45.0 - 75.0 08/07/2014 [facility] HEMATOLOGY Eosinophils 13.4 % 0.0 - 4.0 08/07/2014 [facility] HEMATOLOGY Monocytes 8.0 % 2.0 - 12.0 08/07/2014 [facility] HEMATOLOGY Lymphocytes 19.6 % 20.0 - 40.0 08/07/2014 [facility] HEMATOLOGY Segs-Bands # 4.8 K/CMM 1.5 - 8.1 08/07/2014 [facility] HEMATOLOGY Lymphocytes # 1.6 K/CMM 1.0 - 5.5 08/07/2014 [facility] HEMATOLOGY Monocytes # 0.7 K/CMM 0.0 - 0.8 08/07/2014 [facility] HEMATOLOGY Basophils 1.5 % 0.0 - 1.0 08/07/2014 [facility] HEMATOLOGY Eosinophils # 1.1 K/CMM 0.0 - 0.5 08/07/2014 [facility] HEMATOLOGY Anisocyte 1+ *ABN* (08/07/14 4:18 AM) None Seen 08/07/2014 [facility] HEMATOLOGY Basophils # 0.1 K/CMM 0.0 - 0.2 08/07/2014 [facility] HEMATOLOGY RBC 3.17 M/CMM 4.20 - 5.40 08/07/2014 [facility] HEMATOLOGY Hgb 9.5 g/dL 12.0 - 16.0 08/07/2014 [facility] HEMATOLOGY WBC 8.3 K/CMM 3.7 - 10.4 08/07/2014 [facility] HEMATOLOGY MCH 30.1 pg 27.0 - 31.0 08/07/2014 [facility] HEMATOLOGY Platelet 295 K/CMM 133 - 450 08/07/2014 [facility] HEMATOLOGY MCHC 33.0 g/dL 32.0 - 36.0 08/07/2014 [facility] HEMATOLOGY MPV 7.7 fL 7.4 - 10.4 08/07/2014 [facility] HEMATOLOGY RDW 18.6 % 11.5 - 14.5 08/07/2014 [facility] HEMATOLOGY MCV 91.2 fL 80.0 - 98.0 08/07/2014 [facility] HEMATOLOGY Hct 28.9 % 36.0 - 48.0 08/07/2014 [facility] PARATHYROID PROFILE Ca Norm WB 1.15 mMol/L 1.05 - 1.25 08/07/2014 [facility] PARATHYROID PROFILE Ca Ion WB 1.14 mMol/L 1.05 - 1.25 08/07/2014 [facility] IMMUNOLOGY Hep B Core IgM Negative *NA* (08/06/14 6:36 PM) Negative 08/07/2014 [facility] IMMUNOLOGY Hep Bs Ab null <=7.4 mIU/mL 08/07/2014 10Interpretive Data: <=7.4 mIU/mL--------Negative for Anti-HBs. Not immune to HBV infection. 7.5-12.4 mIU/mL--Borderline for Anti-HBs and immune status should be further assessed by considering other factors such as clinical status follow-up testing, associated risk factors, and the use of additional diagnostic information. >12.4 mIU/mL-------Positive for Anti-HBs. Immune to HBV infection [facility] IMMUNOLOGY Hep B Core Ab Positive *NA* (08/06/14 6:36 PM) Negative 08/07/2014 [facility] IMMUNOLOGY Hep Bs Ag Negative *NA* (08/06/14 6:36 PM) Negative 08/07/2014 [facility] IMMUNOLOGY Hep C Ab Negative *NA* (08/06/14 6:36 PM) 08/07/2014 [facility] BODY FLUIDS Prot BF Type Pleural *NA* (08/06/14 4:34 PM) 08/06/2014 [facility] BODY FLUIDS Protein BF 1.3 g/dL 08/06/2014 8Interpretive Data: No established reference ranges. [facility] BODY FLUIDS LDH BF Type Pleural *NA* (08/06/14 4:34 PM) 08/06/2014 [facility] BODY FLUIDS LDH BF 78 unit/L 08/06/2014 9Interpretive Data: No established reference ranges. [facility] BACTERIAL - SEROLOGY MRSA by PCR Negative 17 (08/06/14 12:53 PM) 08/06/2014 17Interpretive Data: Interpretive Data: The [employer] Light[employer] MRSA assay is a qualitative test for the direct detection of nasal colonization with methicillin-resistant Staphylococcus aureus (MRSA) to aid in the prevention and control of MRSA infections in healthcare settings. A positive result does not indicate an infection or require treatment. A negative result does not exclude colonization or infection. The polymerase chain reaction (PCR) assay detects a proprietary sequence indicative of the integration of the SCCmec cassette into the Staphylococcus aureus chromosome, indicating the presence of MRSA DNA. The assay utilizes FDA cleared IVD reagents. Performance characteristics have been verified by the [facility] within the [facility]. The [facility] Laboratory is authorized under the Clinical Laboratory Improvement Amendment of 1988 (CLIA-88) to perform high complexity testing. [facility] CHEM PANEL Lipase Lvl 66 unit/L 73 - 393 08/06/2014 [facility] CHEM PANEL Amylase Lvl 34 unit/L 25 - 115 08/06/2014 [facility] CHEM PANEL Total Protein 6.5 g/dL 6.4 - 8.4 08/06/2014 [facility] CHEM PANEL LDH 535 unit/L 98 - 192 08/06/2014 [facility] CHEM PANEL Lactic Acid Lvl 0.9 mMol/L 0.5 - 2.2 08/06/2014 [facility] CHEM PANEL Phosphorus 2.4 mg/dL 2.5 - 4.5 08/06/2014 [facility] CHEM PANEL Magnesium Lvl 1.9 mg/dL 1.8 - 2.4 08/06/2014 [facility] ELECTROLYTES AGAP 8.1 meq/L 10.0 - 20.0 08/06/2014 [facility] ELECTROLYTES eGFR 9 mL/min/1.73m2 08/06/2014 3Result Comment: The eGFR is calculated using the CKD-EPI formula. In most young, healthy individuals the eGFR will be >90 mL/min/1.73m2. The eGFR declines with age. An eGFR of 60-89 may be normal in some populations, particularly the elderly, for whom the CKD-EPI formula has not been extensively validated. Use of the eGFR is not recommended in the following populations: Individuals with unstable creatinine concentrations, including patients and those with serious co-morbid conditions. Patients with extremes in muscle mass or diet. The data above are obtained from the National Kidney Disease Education Program (NKDEP) which additionally recommends that when the eGFR is used in patients with extremes of body mass index for purposes of drug dosing, the eGFR should be multiplied by the estimated BMI. [facility] ELECTROLYTES Creatinine Lvl 4.7 mg/dL 0.5 - 1.4 08/06/2014 [facility] ELECTROLYTES Potassium Lvl 4.1 meq/L 3.5 - 5.1 08/06/2014 [facility] ELECTROLYTES Sodium Lvl 138 meq/L 135 - 145 08/06/2014 [facility] ELECTROLYTES CO2 30 meq/L 24 - 32 08/06/2014 [facility] ELECTROLYTES Chloride Lvl 104 meq/L 95 - 109 08/06/2014 [facility] ELECTROLYTES Calcium Lvl 8.8 mg/dL 8.5 - 10.5 08/06/2014 [facility] ELECTROLYTES BUN 16 mg/dL 7 - 22 08/06/2014 [facility] ELECTROLYTES Glucose Lvl 112 mg/dL 70 - 99 08/06/2014 6Interpretive Data: Adult reference range values reflect the clinical guidelines of the [place] [employer]. [facility] HEMATOLOGY Segs 70.8 % 45.0 - 75.0 08/06/2014 [facility] HEMATOLOGY Lymphocytes 15.0 % 20.0 - 40.0 08/06/2014 [facility] HEMATOLOGY Eosinophils 6.2 % 0.0 - 4.0 08/06/2014 [facility] HEMATOLOGY Monocytes 6.8 % 2.0 - 12.0 08/06/2014 [facility] HEMATOLOGY Basophils 1.2 % 0.0 - 1.0 08/06/2014 [facility] HEMATOLOGY Segs-Bands # 8.2 K/CMM 1.5 - 8.1 08/06/2014 [facility] HEMATOLOGY Eosinophils # 0.7 K/CMM 0.0 - 0.5 08/06/2014 [facility] HEMATOLOGY Monocytes # 0.8 K/CMM 0.0 - 0.8 08/06/2014 [facility] HEMATOLOGY Basophils # 0.1 K/CMM 0.0 - 0.2 08/06/2014 [facility] HEMATOLOGY Lymphocytes # 1.7 K/CMM 1.0 - 5.5 08/06/2014 [facility] HEMATOLOGY PTT 33.1 s 22.9 - 35.8 08/06/2014 16Interpretive Data: Heparin Therapeutic Range: 57 - 92 Seconds [facility] HEMATOLOGY PT 13.1 s 12.0 - 14.7 08/06/2014 [facility] HEMATOLOGY INR 0.99 0.85 - 1.17 08/06/2014 13Interpretive Data: RECOMMENDED RANGES FOR PROTIME INR: 2.0-3.0 for most medical and surgical thromboembolic states. 2.5-3.5 for artificial heart valves and recurrent embolism. INR SHOULD BE USED ONLY FOR PATIENTS ON STABLE ANTICOAGULANT THERAPY. [facility] HEMATOLOGY WBC 11.5 K/CMM 3.7 - 10.4 08/06/2014 [facility] HEMATOLOGY RBC 3.31 M/CMM 4.20 - 5.40 08/06/2014 [facility] HEMATOLOGY MPV 7.6 fL 7.4 - 10.4 08/06/2014 [facility] HEMATOLOGY Platelet 372 K/CMM 133 - 450 08/06/2014 [facility] HEMATOLOGY RDW 18.9 % 11.5 - 14.5 08/06/2014 [facility] HEMATOLOGY MCHC 33.2 g/dL 32.0 - 36.0 08/06/2014 [facility] HEMATOLOGY MCH 30.5 pg 27.0 - 31.0 08/06/2014 [facility] HEMATOLOGY MCV 91.7 fL 80.0 - 98.0 08/06/2014 [facility] HEMATOLOGY Hct 30.3 % 36.0 - 48.0 08/06/2014 [facility] HEMATOLOGY Hgb 10.1 g/dL 12.0 - 16.0 08/06/2014 [facility] PARATHYROID PROFILE Ca Norm WB 1.08 mMol/L 1.05 - 1.25 08/06/2014 [facility] PARATHYROID PROFILE Ca Ion WB 1.10 mMol/L 1.05 - 1.25 08/06/2014 [facility] SPECIAL CHEMISTRY Hgb A1C 4.6 % <=5.6 % 08/06/2014 [facility] Chest 2 views DX Chest 2 views DX Chest x-ray 2 views INDICATION: Pleural effusion and dyspnea COMPARISON: 07/20/2014 FINDINGS: Cardiomediastinal silhouette is stable. Interval increase in size of right-sided pleural effusion with associated atelectasis. The left lung is clear. Left-sided dialysis catheter is stable in position. No pneumothorax. Sequela of previous median sternotomy again seen. No acute osseous abnormality. IMPRESSION: Interval increase in size of right-sided pleural effusion. 07/26/2014 - - Read by: Maida Vargas MD Dictated Date/time: 07/26/14 17:22 Electronically Signed by: Maida Vargas MD 07/26/14 17:23 FINAL REPORT [facility] BODY FLUIDS Clarity BF Moderate Cloudy *ABN* (07/20/14 2:12 PM) Clear 07/20/2014 [facility] BODY FLUIDS Supernat BF Yellow *ABN* (07/20/14 2:12 PM) Colorless 07/20/2014 [facility] BODY FLUIDS WBC BF 803 /mm3 07/20/2014 6Interpretive Data: No established reference ranges. [facility] [place] [address] /mm3 07/20/2014 5Interpretive Data: No established reference ranges. [facility] BODY FLUIDS Segs BF 3 % 07/20/2014 7Interpretive Data: No established reference ranges. [facility] BODY FLUIDS Lymph BF 74 % 07/20/2014 [facility] BODY FLUIDS Macrophage BF 22 % 07/20/2014 [facility] BODY FLUIDS Meso BF Occasional (07/20/14 2:12 PM) 07/20/2014 [facility] BODY FLUIDS Color BF Yellow (07/20/14 2:12 PM) Colorless 07/20/2014 [facility] BODY FLUIDS Eos BF 1 % 07/20/2014 [facility] FLUIDS CellCnt BF Type Pleural (07/20/14 2:12 PM) 07/20/2014 [facility] BODY FLUIDS Albumin BF 1.2 g/dL 07/20/2014 2Interpretive Data: No established reference ranges. [facility] BODY FLUIDS Alb BF Type Pleural *NA* (07/20/14 2:12 PM) 07/20/2014 [facility] BODY FLUIDS LDH BF Type Pleural *NA* (07/20/14 2:12 PM) 07/20/2014 [facility] BODY FLUIDS LDH BF 108 unit/L 07/20/2014 4Interpretive Data: No established reference ranges. [facility] BODY FLUIDS Gluc BF Type Pleural *NA* (07/20/14 2:12 PM) 07/20/2014 [facility] BODY FLUIDS Glucose BF 110 mg/dL 07/20/2014 1Interpretive Data: No established reference ranges. [facility] BODY FLUIDS Protein BF 2.2 g/dL 07/20/2014 3Interpretive Data: No established reference ranges. [facility] BODY FLUIDS Prot BF Type Pleural *NA* (07/20/14 2:12 PM) 07/20/2014 [facility] Chest 1view Chest 1view EXAM: XR CHEST 1 VIEW INDICATION: Shortness of Breath. Status post thoracentesis. COMPARISON: 07/11/2014 TECHNIQUE: Single AP view of the chest DISCUSSION: No obvious pneumothorax demonstrated following thoracentesis. Right pleural effusion is reduced in volume. Atelectasis in the right lung shows mild improvement. Left lung is clear. A left IJ approach dialysis catheter shows stable positioning. The cardiomediastinal silhouette is stable. IMPRESSION: Status post thoracentesis without evidence of pneumothorax. 07/20/2014 - - Read by: Hamilton Portillo MD Dictated Date/time: 07/20/14 13:26 Electronically Signed by: Hamilton Portillo MD 07/20/14 13:28 FINAL REPORT [facility] Chest US Chest US EXAM: Limited Chest US DATE: Jul 18, 2014 03:20:00 PM. CLINICAL INDICATION: Shortness of Breath / Unilateral . COMPARISON: Chest x-ray dated 07/11/2014. TECHNIQUE: Limited real-time grayscale ultrasound of both chest performed for effusions. FINDINGS: Moderate simple appearing right pleural effusion seen with subjacent compressive atelectasis. The right pleural effusion is quantified to be approximately 740 cc. Tiny left pleural effusion seen which is non drainable. 07/18/2014 - - Read by: Elie Tucker Dictated Date/time: 07/18/14 16:11 Electronically Signed by: Elie Tucker 07/18/14 16:12 FINAL REPORT [facility] Chest 2 views Chest 2 views INDICATION: Right-sided pleural effusion. PROCEDURE: Chest, 2 view. FINDINGS: Compared with June 30, 2014. The no change in sternal wires. A left-sided central catheter has tips which in in the superior vena cava and in the right atrium and is unchanged. Heart size is difficult to evaluate because the right heart border is silhouetted. No mediastinal hilar masses are present. A right-sided pleural effusion is present occupying at least one third of the inferior portion of the right hemithorax. This represents marked change from the comparison study. There is blunting in the left lateral costophrenic sulcus and posterior costophrenic sulcus. There are apical pleural densities bilaterally which are unchanged. No nodular densities are present. Prograf. IMPRESSION: 1. Marked interval development of a right-sided pleural effusion occupying the lower third of the right hemithorax. 2. There is a small left pleural effusion. 3. Unchanged apical pleural fibrotic changes bilaterally. 07/11/2014 - - Read by: Haseeb Khalil MD Dictated Date/time: 07/11/14 16:41 Electronically Signed by: Haseeb Khalil MD 07/11/14 16:43 FINAL [facility]PORT [facility] Chest 1view Chest 1view Portable ap semierect chest 06/30/2014. HISTORY: Tube placement. Comparison is made with yesterday. FINDINGS: There is asymmetric right apical pleural thickening which is stable. Cardiomediastinal silhouette, postoperative changes and life-support line are stable. The right costophrenic sulcus is blunted either by a small pleural effusion or pleural thickening. The left sulcus is sharp. No pneumothorax is identified, however, a supine film is suboptimal for that determination. An erect film of the chest is suggested in order to more accurately exclude a pneumothorax. The lungs are clear. CONCLUSION: No significant interval change in the appearance of the chest when compared to prior radiograph. 06/30/2014 - - Read by: Dary Wood MD Dictated Date/time: 06/30/14 19:53 Electronically Signed by: Dary Wood MD 06/30/14 19:54 FINAL REPORT [facility] Abdomen RUQ US Abdomen RUQ US EXAM: Abdomen RUQ US DATE: Jun 30, 2014 08:45:00 AM . INDICATION: Nausea DATA: History of congestive heart failure as well as acute and subacute endocarditis COMPARISON: None FINDINGS: Real-time sonographic imaging of the right upper quadrant of the abdomen was performed. The visualized portions of the liver are of homogeneous echotexture without focal abnormality. The right hepatic lobe measures 15.56 cm in longitudinal span which is normal. The gallbladder is moderately distended and is free of calculi, wall thickening or pericholecystic fluid. The gallbladder wall measures 2.3 mm. There is a negative sonographic Aaron's sign. There is no biliary dilatation with the common duct measuring up to 3.0 mm in diameter. The main portal vein is of normal diameter measuring 1.2 cm with normal hepatopedal flow noted on color Doppler analysis. The pancreas is obscured by overlying bowel gas. The spleen is not enlarged measuring 11.96 cm in longitudinal span. The abdominal aorta and IVC are of normal caliber. There is no free abdominal fluid appreciated. A survey evaluation of the right kidney demonstrates a normal size without hydronephrosis measuring 10.5 cm. IMPRESSION: 1. Normal right upper quadrant ultrasound. 06/30/2014 - - Read by: Jacquelyn Spears MD Dictated Date/time: 07/01/14 09:19 Electronically Signed by: Jacquelyn Spears MD 07/01/14 09:22 FINAL REPORT [facility] Chest 1view Chest 1view PORTABLE CHEST 2014-06-29 07:39:00 COMPARISON: Yesterday CLINICAL INDICATION: Tube placement/removal/reposition DISCUSSION: Stable positioning of the left dialysis catheter. Stable postoperative changes of the cardiomediastinal silhouette. Tiny bilateral pleural effusions cannot be excluded. Bilateral lower lobe subsegmental atelectasis. Stable apical emphysematous changes are seen. CONCLUSION: There has been no significant interval change in the radiographic appearance of the chest when compared to prior radiograph. 06/29/2014 - - Read by: Toni Patel MD Dictated Date/time: 06/29/14 09:23 Electronically Signed by: Toni Patel 06/29/14 09:25 FINAL REPORT [facility] Chest 1view Chest 1view EXAM: XR CHEST 1 VIEW DATE: Jun 28, 2014 07:55:00 AM INDICATION: Tube placement/removal/reposition COMPARISON: Chest radiograph 06/27/2014 TECHNIQUE: AP view of the chest FINDINGS: The patient is status post sternotomy and cardiac valve replacement. Lines and tubes: Left-sided double-lumen dialysis catheter remains in place. Lungs/pleura: There are prominent interstitial markings, likely vessel engorgement secondary to volume overload. Stable apical emphysematous changes are seen. A left pleural effusion is present, stable. Heart/mediastinum: The cardiomediastinal silhouette is stable. Bones: No acute fracture or destructive bony lesion. CONCLUSION: There has been no significant interval change in the radiographic appearance of the chest when compared to prior radiograph. 06/28/2014 - - This report was dictated by a Statistical Technician/Fellow. I have personally reviewed the images as well as the Resident's interpretation and agree with the findings. Read by: Lauren Barba MD Resident: Lauren Barba MD Dictated Date/time: 06/28/14 10:26 Electronically Signed by: Toni Patel 06/28/14 15:38 FINAL REPORT [facility] Chest 1view Chest 1view EXAM: CHEST 1 VIEW DATE: Jun 27, 2014 06:04:00 PM INDICATION: Dyspnea COMPARISON: Chest radiograph 06/27/2014 at 3:24 a.m. TECHNIQUE: Two AP radiographs of the chest FINDINGS: Left internal jugular dialysis catheter is unchanged. Right and left chest tubes have been removed. There is no pneumothorax identified. There is unchanged left basilar atelectasis. Cardiac contours are unchanged. Prosthetic cardiac valve again noted. IMPRESSION: No pneumothorax identified post chest tube removal. 06/27/2014 - - Read by: Greyson Lopez MD Dictated Date/time: 06/27/14 20:07 Electronically Signed by: Greyson Lopez MD 06/27/14 20:08 FINAL REPORT [facility] Abdomen AP view Abdomen AP view EXAM: Abdomen 1 view DATE: Jun 27, 2014 02:42:00 PM. CLINICAL INDICATION: Abdominal pain, acute COMPARISON: None FINDINGS: Moderate amount of colonic stool burden seen. Bowel gas pattern is otherwise nonspecific and nonobstructive. Bones are grossly unremarkable. IMPRESSION: 1. Moderate amount of colonic stool burden. 06/27/2014 - - Read by: Elie Tucker Dictated Date/time: 06/27/14 15:18 Electronically Signed by: Elie Tucker 06/27/14 15:19 FINAL REPORT [facility] Chest 1view Chest 1view PORTABLE CHEST 2014-06-27 03:35:00 COMPARISON: Yesterday CLINICAL INDICATION: Tube placement/removal/reposition DISCUSSION: Removal of the endotracheal and NG tubes. Other stable life support lines and tubes. Stable postoperative changes of the cardiomediastinal silhouette. Tiny right apical pneumothorax seen on yesterday's examination is less apparent. Bilateral lower lobe subsegmental atelectasis. IMPRESSION: 1. Removal of the endotracheal and NG tubes. 2. Otherwise, no significant change. 06/27/2014 - - Read by: Toni Patel MD Dictated Date/time: 06/27/14 09:13 Electronically Signed by: Toni Patel 06/27/14 09:14 FINAL REPORT [facility] Chest 1view Chest 1view Chest one view, June 26, 2014 at 2:16 a.m. HISTORY: 64-year-old female with tube placement/removal/reposition. FINDINGS: Comparison is made to yesterday. The cardiomediastinal silhouette and postoperative changes, life support lines and tubes are stable. Subsegmental atelectasis is seen in the bilateral lower lobes. The costophrenic sulci are sharp, without effusions. There is a tiny right apical pneumothorax. IMPRESSION: 1. Bilateral lower lobe subsegmental atelectasis. 2. Tiny right apical pneumothorax. 06/26/2014 - - Read by: Fawn Nur MD Dictated Date/time: 06/26/14 11:08 Electronically Signed by: Fawn Nur MD 06/26/14 12:52 FINAL REPORT [facility] HVI VAS Venous Upper Ext Bilat Doppler HVI VAS Venous Upper Ext Bilat Doppler INDICATION: Limb swelling; history of deep vein thrombosis. IMPRESSION: 1. There is evidence of chronic deep venous thrombus with partial recanalization within the right internal jugular vein. COMMENT: Right upper extremity grayscale, color-flow, and Doppler examination of the venous system was performed. No prior studies are available for comparison. Examination of the right internal jugular, subclavian, axillary, and brachial veins was performed. This study demonstrates hyperechoic, homogenous material within the right internal jugular vein that is noncompressible. The vein is small but with some flow on color Doppler and spectral waveform analysis. These findings are consistent with a chronic deep venous thrombosis with partial recanalization of the right internal jugular vein. The remainder of the study demonstrates normal phasic flow and appropriate response to compression and augmentation of the remaining veins of the right upper extremity. 06/25/2014 - - This report was dictated by a Statistical Technician/Fellow. I have personally reviewed the images as well as the Resident's interpretation and agree with the findings. Read by: Howard Becerra MD Resident: Howard Becerra MD Dictated Date/time: 06/25/14 18:36 Electronically Signed by: Dixon Constantino MD 06/27/14 13:43 FINAL REPORT [facility] Chest 1view Chest 1view PORTABLE CHEST 2014-06-25 14:45:00 COMPARISON: Yesterday CLINICAL INDICATION: Crackles DISCUSSION: New postoperative changes of the cardiomediastinal silhouette. New support lines and tubes include: Endotracheal tube 5 cm above the brandi, NG tube coursing of the diaphragm and terminating outside the [id number], 2 mediastinal drains and bilateral chest tubes. Right midlung discoid/subsegmental atelectasis. Left basilar subsegmental atelectasis. Upper lobe emphysematous changes. No obvious pneumothorax is identified, however, a supine film is suboptimal for that determination. An erect film of the chest is suggested in order to more accurately exclude a pneumothorax. 06/25/2014 - - Read by: Toni Patel MD Dictated Date/time: 06/25/14 15:37 Electronically Signed by: Toni Patel 06/25/14 15:40 FINAL REPORT [facility] Chest 1view Chest 1view EXAM: CHEST 1 VIEW DATE: Jun 24, 2014 12:08:00 PM INDICATION: Respiratory distress COMPARISON: June 18, 2014 at 2024 hours TECHNIQUE: A single portable view of the chest FINDINGS: Left jugular center venous catheter is in place with distal tip projecting at atrial caval junction. Mild cardiomegaly persists. Mediastinal contours are stable. Pulmonary vascularity has improved with stable appearing interstitial opacities seen diffusely throughout the lungs, greatest in the bases. Blunting of left costophrenic recess persists which may represent pleural thickening or trace effusion. Previous right effusion has decreased. IMPRESSION: 1. Persistent mild cardiomegaly. 2. Improved interstitial pulmonary edema. 3. Decreasing right effusion with trace left effusion versus pleural thickening. 4. No change in the appearance of left jugular double lumen catheter. 5. Interstitial pattern with scattered bulla formation and mild hyperinflation and biapical pleural thickening in the lungs which may reflect underlying interstitial lung disease with emphysema. 06/24/2014 - - Read by: Jacquelyn Spears MD Dictated Date/time: 06/24/14 16:08 Electronically Signed by: Jacquelyn Spears MD 06/24/14 16:14 FINAL REPORT [facility] Chest wo contrast CT Chest wo contrast CT Chest CT without contrast, June 22, 2014. HISTORY: 64-year-old female with respiratory failure. TECHNIQUE: Continuous 2 mm thin axial noncontrast CT images were attained through the chest, with coronal and sagittal reformatted imaging provided. No prior chest CT is available for comparison. FINDINGS: The cardiothoracic ratio measures 13/26.4 cm. There is a tiny pericardial effusion. The thoracic aorta and pulmonary trunk do not measure enlarged. Abundant calcifications are seen throughout the entire thoracic aorta. Calcifications are identified in the left main, left anterior descending, and right coronary arteries, to a lesser degree in the left circumflex branch. The patient has a double-lumen left jugular hemodialysis catheter in place. There is a low-attenuation lesion inseparable from the left lobe of the thyroid gland producing local mass effect, for example on axial image 23 measuring 2.0 x 3.7 cm. This may be arising from the thyroid gland or may be adjacent to it. Numerous lymph nodes are scattered throughout the mediastinum which are increased in number and some are increased in size. A low right paratracheal/precarinal lymph node measures 14 mm. A lymph node in the AP window measures 11 mm. Please note that evaluation of the berkley for lymph nodes is limited on this noncontrast study. Limited imaging through the upper abdomen shows atrophic kidneys, particularly on the left. The left adrenal gland is thickened with mild adjacent soft tissue density stranding. There is diverticulosis of the incompletely included splenic flexure of the colon, without evidence of diverticulitis. There is a small right pleural effusion layering dependently. This results in passive atelectasis in the right lower lobe. Centrilobular emphysema is seen with an upper lobe predilection. There is also mild biapical paraseptal emphysema. Note is made of biapical thickening with subpleural nodular densities, likely post infectious/inflammatory. Numerous tiny 2 mm pulmonary nodules are scattered in the bilateral upper lobes. Interlobular septal thickening is seen predominantly in the bilateral lower lobes, right middle lobe, and lingula, suggestive of interstitial pulmonary edema. There are mild accompanying groundglass opacities in a similar distribution. There is also an irregular opacity in the right middle lobe medially, for example on axial image 124 which appears linear on corresponding sagittal image 92. While this could represent a focus of subsegmental atelectasis, it needs be followed for clearing. Degenerative changes are seen predominantly at the cervicothoracic junction with loss of vertebral body heights and marginal osteophytes involving the incompletely included lower cervical spine. Mild scattered thoracic spine osteophytes are noted. IMPRESSION: 1. Emphysema. 2. Mild interstitial pulmonary edema with small right pleural effusion. 3. There is an irregular opacity in the right middle lobe which could represent subsegmental atelectasis but needs to be followed for clearing. 4. Several tiny 2 mm pulmonary nodules are scattered in the bilateral upper lobes. A repeat chest CT may be obtained in 12 months to document long-term stability. If prior studies are available from another facility, then that would be very beneficial in documenting stability. 5. Aortic and coronary artery calcifications. 6. There is a low-attenuation lesion inseparable from the left lobe of the thyroid gland measuring 2 x 3.7 cm producing local mass effect. This may be arising from the thyroid gland or could be located adjacent to it. Further evaluation with ultrasound is recommended. 7. Mediastinal lymph nodes are increased in number and some are slightly prominent, likely reactive. 06/22/2014 - - Read by: Fawn Nur MD Dictated Date/time: 06/23/14 10:52 Electronically Signed by: Fawn Nur MD 06/23/14 11:05 FINAL REPORT [facility] HVI VAS Arterial Extracranial Doppler Bi HVI VAS Arterial Extracranial Doppler Bi INDICATION: Preoperative evaluation prior to high risk operative procedure. IMPRESSION: 1. Moderate atherosclerotic disease of bilateral proximal internal carotid arteries consistent with 51-69% stenosis. 2. Bidirectional flow is noted in the left vertebral artery suggestive of proximal stenosis. COMMENT: No prior studies are available for comparison. Bilateral grayscale, color-flow, and Doppler examination of the extracranial carotid arterial system was performed here. On the right, moderate plaque is noted in the internal carotid artery. The right internal carotid to common carotid peak systolic velocity ratio is 1.50. The peak systolic velocity in the internal carotid artery is 216 cm/sec. The peak end-diastolic velocities are also elevated measuring 42.7 cm/sec. In addition there is spectral broadening noted. These findings are consistent with 51-69% stenosis. On the left, moderate, heterogeneous plaque is noted in the internal carotid artery. The left internal carotid to common carotid peak systolic velocity ratio is 1.77 . The peak systolic velocity in the internal carotid artery a 267 cm/sec. The peak end-diastolic velocities are elevated measuring 58.1 cm/sec. There is also evidence of spectral broadening throughout the left internal carotid artery. These findings are consistent with 51-69% stenosis. Bilateral external carotid arteries are patent. Antegrade flow was noted in the right vertebral artery. Bidirectional flow was noted in the left vertebral artery. 06/22/2014 - - This report was dictated by a Statistical Technician/Fellow. I have personally reviewed the images as well as the Resident's interpretation and agree with the findings. Read by: Howard Becerra MD Resident: Howard Becerra MD Dictated Date/time: 06/23/14 11:22 Electronically Signed by: Dixon Constantino MD 06/27/14 13:39 FINAL REPORT [facility] Chest 1view Chest 1view EXAM: XR CHEST 1 VIEW DATE: 06/18/2014 at 2029 hours INDICATION: Shortness of Breath COMPARISON: 06/18/2014 at 0929 hours TECHNIQUE: Single AP view of the chest DISCUSSION: The left internal jugular dual-lumen catheter tips remain in the mid SVC and superior cavoatrial junction. Mild interstitial edema with a small right pleural effusion are unchanged. The cardiomediastinal silhouette is stable, top normal size for this technique. No acute bony abnormality is identified. IMPRESSION: Mild pulmonary edema, not significantly changed. 06/18/2014 - - Read by: Bella Alexander MD Dictated Date/time: 06/18/14 20:56 Electronically Signed by: Bella Alexander MD 06/18/14 20:59 FINAL REPORT [facility] Ext Upper Venous Doppler Bilat US Ext Upper Venous Doppler Bilat US Please refer to Dr. Reyes's heart lab report. 06/18/2014 - - Electronically Signed by: Jack Wasserman 06/19/14 08:52 FINAL REPORT [facility] Vital Signs Vital Sign Value Date Comments Source Heart Rate 83 07/26/2017 [facility] Respitory Rate 18 07/26/2017 [facility] Systolic (mm Hg) 162 07/26/2017 [facility] Diastolic (mm Hg) 77 07/26/2017 [facility] Temperature Oral (F) 98.1 F 07/23/2017 [facility] Respitory Rate 22 07/23/2017 [facility] Systolic (mm Hg) 135 07/23/2017 [facility] Diastolic (mm Hg) 56 07/23/2017 [facility] Heart Rate 75 07/23/2017 [facility] BMI Calculated 17.79 07/23/2017 [facility] Weight 54.636 07/23/2017 [facility] Height 175.26 cm 07/23/2017 [facility] Systolic (mm Hg) 147 05/29/2015 [facility] Diastolic (mm Hg) 87 05/29/2015 [facility] Heart Rate 81 05/29/2015 [facility] Weight 46.364 05/29/2015 [facility] BMI Calculated 16.01 05/29/2015 [facility] Height 170.18 cm 05/29/2015 [facility] Weight 54.7 05/15/2015 [facility] Systolic (mm Hg) 129 05/15/2015 [facility] Diastolic (mm Hg) 56 05/15/2015 [facility] BMI Calculated 19.3 05/01/2015 [facility] Weight 55.909 05/01/2015 [facility] Height 170.18 cm 05/01/2015 [facility] Systolic (mm Hg) 141 05/01/2015 [facility] Diastolic (mm Hg) 76 05/01/2015 [facility] Respitory Rate 20 05/01/2015 [facility] Heart Rate 91 05/01/2015 [facility] Temperature Oral (F) 97.3 F 05/01/2015 [facility] Height 170.18 cm 05/01/2015 [facility] BMI Calculated 19.3 05/01/2015 [facility] Weight 55.909 05/01/2015 [facility] Temperature Oral (F) 97.3 F 05/01/2015 [facility] Respitory Rate 20 05/01/2015 [facility] Heart Rate 91 05/01/2015 [facility] Temperature Oral (F) 97.9 F 04/17/2015 [facility] BMI Calculated 18.91 04/17/2015 [facility] Height 170.18 cm 04/17/2015 [facility] Weight 54.773 04/17/2015 [facility] Heart Rate 83 04/17/2015 [facility] Respitory Rate 16 04/17/2015 [facility] Systolic (mm Hg) 151 04/17/2015 [facility] Diastolic (mm Hg) 70 04/17/2015 [facility] Height 170.18 cm 03/29/2015 [facility] Respitory Rate 16 03/29/2015 [facility] Heart Rate 92 03/29/2015 [facility] Temperature Oral (F) 96.9 F 03/29/2015 [facility] Systolic (mm Hg) 121 03/29/2015 [facility] Diastolic (mm Hg) 79 03/29/2015 [facility] Height 170.18 cm 03/27/2015 [facility] Respitory Rate 20 03/27/2015 [facility] Heart Rate 112 03/27/2015 [facility] BMI Calculated 18.36 03/27/2015 [facility] Weight 53.182 03/27/2015 [facility] Systolic (mm Hg) 136 03/27/2015 [facility] Diastolic (mm Hg) 77 03/27/2015 [facility] BMI Calculated 18.36 03/27/2015 [facility] Height 170.18 cm 03/27/2015 [facility] Weight 53.182 03/27/2015 [facility] Height 170.18 cm 03/20/2015 [facility] Weight 54.545 03/20/2015 [facility] BMI Calculated 18.83 03/20/2015 [facility] Heart Rate 87 03/20/2015 [facility] Temperature Oral (F) 97.0 F 03/20/2015 [facility] Respitory Rate 20 03/20/2015 [facility] Systolic (mm Hg) 141 03/20/2015 [facility] Diastolic (mm Hg) 66 03/20/2015 [facility] Systolic (mm Hg) 152 08/08/2014 [facility] Diastolic (mm Hg) 79 08/08/2014 [facility] Systolic (mm Hg) 176 08/08/2014 [facility] Diastolic (mm Hg) 87 08/08/2014 [facility] Systolic (mm Hg) 149 08/08/2014 [facility] Diastolic (mm Hg) 72 08/08/2014 [facility] Temperature Oral (F) 98.2 F 08/08/2014 [facility] Height 30.48 cm 08/08/2014 [facility] Temperature Oral (F) 97.9 F 08/08/2014 [facility] Temperature Oral (F) 98.1 F 08/08/2014 [facility] Respitory Rate 16 08/08/2014 [facility] Respitory Rate 20 08/07/2014 [facility] Respitory Rate 24 08/06/2014 [facility] BMI Calculated 19.93 08/06/2014 [facility] Weight 57.727 08/06/2014 [facility] Height 170.18 cm 08/06/2014 [facility] Height 170.1 cm 07/25/2014 [facility] Weight 57.003 07/25/2014 [facility] BMI Calculated 19.7 07/25/2014 [facility] Diastolic (mm Hg) 81 07/25/2014 [facility] Respitory Rate 18 07/25/2014 [facility] Systolic (mm Hg) 176 07/25/2014 [facility] Heart Rate 74 07/25/2014 [facility] Temperature Oral (F) 97.4 F 07/25/2014 [facility] Height 170.18 cm 07/20/2014 [facility] Weight 60.909 07/20/2014 [facility] BMI Calculated 21.03 07/20/2014 [facility] Diastolic (mm Hg) 81 07/18/2014 [facility] Systolic (mm Hg) 176 07/18/2014 [facility] Temperature Oral (F) 97.9 F 07/18/2014 [facility] Heart Rate 87 07/18/2014 [facility] Weight 60.71 07/18/2014 [facility] BMI Calculated 20.96 07/18/2014 [facility] Height 170.18 cm 07/18/2014 [facility] Systolic (mm Hg) 126 07/11/2014 [facility] Diastolic (mm Hg) 64 07/11/2014 [facility] Temperature Oral (F) 97.2 F 07/11/2014 [facility] Heart Rate 72 07/11/2014 [facility] Respitory Rate 16 07/11/2014 [facility] Weight 62.006 07/11/2014 [facility] BMI Calculated 21.21 07/11/2014 [facility] Height 171 cm 07/11/2014 [facility] Weight 60.994 06/18/2014 [facility] BMI Calculated 21.06 06/18/2014 [facility] Height 170.18 cm 06/18/2014 [facility] Diastolic (mm Hg) 83 06/18/2014 [facility] Systolic (mm Hg) 165 06/18/2014 [facility] Respitory Rate 16 06/18/2014 [facility] Heart Rate 99 06/18/2014 [facility] Temperature Oral (F) 97.4 F 06/18/2014 [facility] Encounters Location Location Details Encounter Type Encounter Number Reason For Visit Attending Provider ADM Date DC Date Status Source [facility] Outpatient [id number] Gokul Reeys 06/18/2014 06/19/2014 [facility] Outpatient [id number] Shyam Armenta 06/18/2014 06/19/2014 [facility] Outpatient [id number] Al Christianson 07/11/2014 07/12/2014 [facility] [id number] Janelle Garcia 07/11/2014 07/12/2014 [facility] Outpatient [id number] Agusto Corey 07/18/2014 07/19/2014 [facility] Outpatient [id number] Corina Hurley 07/20/2014 07/21/2014 [facility] Outpatient [id number] Al Christianson 07/25/2014 07/26/2014 [facility] [place] [facility] [id number] Janelle Garcia 07/26/2014 07/27/[address] [facility] Inpatient [id number] Al Christianson 08/06/2014 08/08/2014 [facility] Outpatient [id number] Soma Jyothula 03/20/2015 03/21/2015 [facility] Outpatient [id number] Soma Jyothula 03/27/2015 03/28/2015 [facility] Phone Message [id number] 03/28/2015 03/30/2015 [facility] Outpatient [id number] Soma Jyothula 03/29/2015 03/30/2015 [facility] Outpatient [id number] Soma Jyothula 04/03/2015 04/04/2015 [facility] Outpatient [id number] Soma Jyothula 04/17/2015 04/18/2015 [facility] Outpatient [id number] Soma Jyothula 05/01/2015 05/02/2015 [facility] Outpatient [id number] Soma Jyothula 05/15/2015 05/16/2015 [facility] Outpatient [id number] Soma Jyothula 05/29/2015 05/30/2015 [facility] Outpatient [id number] Soma Jyothula 06/05/2015 06/06/2015 [facility] Outpatient [id number] Robbie Dwain 07/26/2017 07/26/2017 [facility] Procedures Procedure Code Date Perfomer Comments Source Cardiac angiogram [id number] 05/14/2014 [facility] Cardiac angiogram [id number] 05/14/2014 [facility] Cardiac angiogram [id number] 05/14/2014 [facility] Placement of stent [id number] 06/14/2012 [facility] Placement of stent [id number] 06/14/2012 [facility] Placement of stent [id number] 06/14/2012 [facility] Placement of stent [id number] 06/14/2010 [facility] Placement of stent [id number] 06/14/[facility] Placement of stent [id number] 06/14/2010 [facility] Procedure on back [id number] 06/14/2009 [facility] Procedure on back [id number] 06/14/2009 [facility] Procedure on back [id number] 06/14/2009 [facility] Tubal ligation [id number] 06/14/1982 [facility] Tubal ligation [id number] 06/14/1982 [facility] Tubal ligation [id number] 06/14/1982 [facility] Tonsillectomy [id number] 06/14/1961 [facility] Tonsillectomy [id number] 06/14/1961 [facility] Tonsillectomy [id number] 06/14/1961 [facility] Mitral valve operation [id number] [facility] Thoracentesis [id number] [facility] Mitral valve operation [id number] [facility] Thoracentesis [id number] [facility] Mitral valve operation [id number] [facility] Thoracentesis [id number] [facility]
--- OUTSIDE RECORDS SUMMARY | 2018-05-25 12:02 | XMS REPORT | Summary of Care ---
Author Organization Unknown Address Unknown Phone Unavailable Encounter HQ Lesvia_kailey(STACEY) [id number] Date(s): 06/18/14 - 06/18/14 [facility] [address] [address] Discharge Disposition: Home Physician Attending: Gokul Reyes MD Physician_Referring: Gokul Reyes MD Reason for Visit 459.81 BILATERAL VENOUS INSUFFICIENCY Problem List Condition Effective Dates Status Health [...]
--- OUTSIDE RECORDS SUMMARY | 2018-05-25 12:02 | XMS REPORT | Summary of Care ---
Author Organization Unknown Address Unknown Phone Unavailable Encounter HQ Diana(STACEY) [id number] Date(s): 07/11/14 - 07/11/14 [facility] Outpatient Imaging [address] Discharge Disposition: Home Physician Attending: Janelle Garcia MD Reason for Visit 511.9 - PLEURAL EFFUSIO Problem List Condition Effective Dates Status Health [...]
--- OUTSIDE RECORDS SUMMARY | 2018-05-25 12:02 | XMS REPORT | Summary of Care ---
Author Organization Unknown Address Unknown Phone Unavailable Encounter HQ Diana(STACEY) [id number] Date(s): 07/18/14 - 07/18/14 [facility] [address] Discharge Disposition: Home Physician Attending: Corina Hurley MD Physician_Referring: Agusto Corey MD Reason for Visit SOBOK PER [id number] Problem List Condition Effective Dates Status Health [...] Response Smoking Status Current every day smoker, Type: Cigarettes, Exposure to Tobacco Smoke None, Cigarette Smoking Last 365 Days Yes, Reg Smoking Cessation Counseling No
--- OUTSIDE RECORDS SUMMARY | 2018-05-25 12:03 | XMS REPORT | Summary of Care ---
Author Author [facility] Organization [facility] Address Unknown Phone Unavailable Encounter GIOVANA Ortiz(STACEY) [id number] Date(s): 06/05/15 - 06/05/15 [facility] [address] [facility], [address] Discharge Disposition: Home Attending Physician: Lea Lou MD Referring Physician: Lea Lou MD Vital Signs No data available for this section Problem List Condition Effective Dates Status Health [...] Adverse Reactions, Alerts Substance Reaction Severity Status morphine Active Plastic Tape Active Medications No data available for this section Results No data available for this section Immunizations No data available for this section Procedures Procedure Date Related Diagnosis Body Site Cardiac angiogram 05/2014 Placement of stent 2012 Placement of stent 2010 Procedure on back 2009 Tubal ligation 1982 Tonsillectomy 1961 Mitral valve operation Thoracentesis Social History Social History Type Response Smoking Status Former smoker; Type: Cigarettes; Previous treatment: None; Ready to change: No; Exposure to Tobacco Smoke None; Other Tobacco Frequency 1-2 cigarettes; Cigarette Smoking Last 365 Days Yes; Reg Smoking Cessation Counseling No Assessment and Plan No data available for this section
--- OUTSIDE RECORDS SUMMARY | 2018-05-25 12:03 | XMS REPORT | Summary of Care ---
Author Organization Unknown Address Unknown Phone Unavailable Encounter HQ Diana(STACEY) [id number] Date(s): 07/26/14 - 07/26/14 [facility] Outpatient Imaging - [place] [address] [place] [address] [place] Discharge Disposition: Home Physician Attending: Janelle Garcia MD Reason for Visit 786.05 - SHORTNESS OF BR Problem List Condition Effective Dates Status Health [...]
--- OUTSIDE RECORDS SUMMARY | 2018-05-25 12:03 | XMS REPORT | Summary of Care ---
Author Organization Unknown Address Unknown Phone Unavailable Encounter GIOVANA Ortiz(STACEY) [id number] Date(s): 07/20/14 - 07/20/14 [facility] [address] Discharge Disposition: Home Physician Attending: Corina Hurley MD Physician_Referring: Corina Hurley MD Reason for Visit PLEURAL EFFUSION Vital Signs Most recent to 1 oldest [Reference Range]: Height 170.18 cm (07/20/14 12:03 PM) Weight 60.909 kg (07/20/14 12:03 PM) Body Mass Index 21.03 m2 (07/20/14 12:03 PM) Problem List Condition Effective Dates Status [...] No data available for this section Results BODY FLUIDS Most recent to 1 oldest [Reference Range]: Glucose BF 110 mg/dL 1 *NA* (07/20/14 2:12 PM) Gluc BF Type Pleural *NA* (07/20/14 2:12 PM) Albumin BF 1.2 g/dL 2 *NA* (07/20/14 2:12 PM) Alb BF Type Pleural *NA* (07/20/14 2:12 PM) Prot BF Type Pleural *NA* (07/20/14 2:12 PM) LDH BF Type Pleural *NA* (07/20/14 2:12 PM) Protein BF 2.2 g/dL 3 *NA* (07/20/14 2:12 PM) LDH BF 108 unit/L 4 *NA* (07/20/14 2:12 PM) Color BF [Colorless] Yellow (07/20/14 2:12 PM) Clarity BF [Clear] Moderate Cloudy *ABN* (07/20/14 2:12 PM) Supernat BF Yellow [Colorless] *ABN* (07/20/14 2:12 PM) RBC BF 11052 /mm3 5 *NA* (07/20/14 2:12 PM) WBC BF 803 /mm3 6 *NA* (07/20/14 2:12 PM) Segs BF 3 % 7 *NA* (07/20/14 2:12 PM) Lymph BF 74 % *NA* (07/20/14 2:12 PM) Eos BF 1 % *NA* (07/20/14 2:12 PM) Macrophage BF 22 % *NA* (07/20/14 2:12 PM) Meso BF Occasional (07/20/14 2:12 PM) CellCnt BF Type Pleural (07/20/14 2:12 PM) 1Interpretive Data: No established reference ranges. 2Interpretive Data: No established reference ranges. 3Interpretive Data: No established reference ranges. 4Interpretive Data: No established reference ranges. 5Interpretive Data: No established reference ranges. 6Interpretive Data: No established reference ranges. 7Interpretive Data: No established reference ranges. Medications Administered During Your Visit No data available for this section Immunizations No data available for this section Social History Social History Type Response Smoking Status Current every day smoker, Type: Cigarettes, Exposure to Tobacco Smoke None, Cigarette Smoking Last 365 Days Yes, Reg Smoking Cessation Counseling No
--- OUTSIDE RECORDS SUMMARY | 2018-05-25 12:03 | XMS REPORT | Summary of Care ---
Author Author [facility] Organization [facility] Address Unknown Phone Unavailable Encounter GIOVANA Ortiz(STACEY) [id number] Date(s): 03/20/15 - 03/20/15 [facility] [address] [facility], [address] Discharge Disposition: Home Attending Physician: Lea Lou MD Referring Physician: Lea Lou MD Vital Signs Most recent to 1 oldest [Reference Range]: Height 170.18 cm (03/20/15 12:47 PM) Most recent to 1 oldest [Reference Range]: Temperature Oral 97.0 DegF [96.4-99.1 DegF] (03/20/15 12:47 PM) Most recent to 1 oldest [Reference Range]: Blood Pressure 141/66 mmHg [90-140/60-90 mmHg] *HI* (03/20/15 12:47 PM) Most recent to 1 oldest [Reference Range]: Respiratory Rate 20 BRMIN [14-20 BRMIN] (03/20/15 12:47 PM) Most recent to 1 oldest [Reference Range]: Peripheral Pulse 87 bpm Rate [60-100 bpm] (03/20/15 12:47 PM) Most recent to 1 oldest [Reference Range]: Weight 54.545 kg (03/20/15 12:47 PM) Most recent to 1 oldest [Reference Range]: Body Mass Index 18.83 m2 (03/20/15 12:47 PM) Problem List Condition Effective Dates Status [...] morphine Active Plastic Tape Active Medications No Known Medications Results No data available for this section [...] Smoking Cessation Counseling No Assessment and Plan Extracted from: Title: [facility] Progress Note Author: Brooke Wilkins Date: 03/20/15 Patient: MELISSA ARAIZA Age: 65 years Sex: Female : 1950 Associated Diagnoses: None Author: Brooke Wilkins Subjective Patient is a 65-year-old woman who has hypertension, coronary artery disease, congestive heart failure, pulmonary hypertension, COPD, peripheral vascular disease, GERD, anemia of chronic disease, as well as recent endocarditis, mitral valve prolapse, status post mitral valve replacement (06/28). She has also end- stage renal disease and received TTS hemodialysis, Feb 2015 was sent to [facility] in [place], [place] by Dr Caldwell for SOB and reported having thoracentesis. Continues to be experience SOB, utilizes supplemental O2 2LNC at home Review of Systems Constitutional: Negative. Eye: Negative. Ear/Nose/Mouth/Throat: Negative. Respiratory: Shortness of breath, Cough, Sputum production, clear/yellowish. Cardiovascular: Peripheral edema, reports much better now. Breast: Negative. Gastrointestinal: Negative. Genitourinary: Negative. Hematology/Lymphatics: Negative. Endocrine: Negative. Immunologic: Negative. Musculoskeletal: Negative. Integumentary: Negative. Neurologic: Negative. Psychiatric: Negative. All other systems are negative Health Status Allergies: Allergic Reactions (All) Severity Not Documented Morphine- No reactions were documented. Plastic Tape- No reactions were documented. Canceled/Inactive Reactions (All) Severity Not Documented NKDA- No reactions were documented. Problem list: All Problems Anxiety / SNOMED CT [id number] / Confirmed CHF - Congestive heart failure / SNOMED CT 285257952 / Confirmed Chronic back pain / SNOMED CT 221832193 / Confirmed COPD / SNOMED CT 10185821 / Confirmed ESRD on hemodialysis / SNOMED CT [id number] / Confirmed Dialysis T, TH, S Hyperlipidemia / SNOMED CT 60756313 / Confirmed Hypertension / SNOMED CT 90306207 / Confirmed MVP - Mitral valve prolapse / SNOMED CT 2970569936 / Confirmed Renal failure, acute / SNOMED CT [id number] / Confirmed Shortness of breath dyspnea / SNOMED CT [id number] / Confirmed Smoker / SNOMED CT 172183543 / Confirmed Vascular disease / SNOMED CT 50162081 / Confirmed Objective Meds Scheduled Meds: None Unscheduled Meds: None PRN Meds: None One Time Meds: None Continuous Infusions: None I&O Input/Output RecordInOutBal 24hr Tot 0 0 0 24hr Tot 0 0 0 VS/Measurements Measurements from flowsheet : Measurements 03/20/2015 12:47 Height 170.18 cm Height Collection Method Stated Weight 54.545 kg Dosing Weight Collection Method Measured Body Surface Area 1.6058 m2 Body Mass Index 18.83 m2 , Vital Signs (last 24 hrs) Last Charted Temp Oral97.0 DegF (MAR 20:) Heart Rate Euxelxdwio52 bpm (MAR 20:) Resp Rate 20 BRMIN (MAR 20) SBPH 141mmHg (MAR 20:) DBP66 mmHg (MAR 20:) Bosrol42.545 kg (MAR 20:) Xxavug659.18 cm (MAR 20:) BMI18.83 (MAR 20:) , O2 sat 88% on RA General: Alert and oriented, No acute distress. Eye: Pupils are equal, round and reactive to light, Extraocular movements are intact, Normal conjunctiva. HENT: Normocephalic, Tympanic membranes are clear. Neck: Supple, Non-tender. Respiratory: Lungs are clear to auscultation, Respirations are non-labored, Symmetrical chest wall expansion, Decreased BS Right side. Cardiovascular: Normal rate, Regular rhythm, No murmur, pulse 1 edema right lower extermity. Gastrointestinal: Soft, Non-tender. Genitourinary: No inguinal tenderness. Musculoskeletal Normal range of motion. Normal strength. Integumentary: Warm, Dry. Neurologic: Alert, Oriented, Normal sensory, Normal motor function. Psychiatric: Cooperative, Appropriate mood & affect, Normal judgment. Review / Management Results review: No qualifying data available. Interpretation: Consistent with previous results. PULMONARY FUNCTION TEST (06/22/2014) Spirometry and flow volume loops demonstrated moderate obstructive disease as seen by reduced FEV1 to FVC ratio of 66%. The contour of the expiratory limb of flow volume loop and FEV1 of 69% of predicted, which is 1.92 liters. There is also a moderate loss of alveolar capillary interface demonstrated by low diffusing capacity of 14.47 mL per minute per mmHg, which is 51% of predicted. CONCLUSION: Moderate obstructive lung disease with moderate reduction in diffusing capacity. Impression and Plan Assessment: 1. Dyspnea 2. Recurrent Pleural Effusion 3. Tobacco abuse Plan: 1. Continue supplemental O2, schedule patient for PFT, will start nebs if FEV1/FVC ratio lower than predicted 2. Chest ultrasound in clinic patient to large right pleural effusion pt will have a pleurx catether placed next week 3. Smoking cessesion encouraged education provided . Addendum Patient seen and examined with VOCATIONAL GUIDANCE COUNSELOR Brooke Wilkins. I agree with the H&P above and please by note my addendum. Dasha, HPI: 65 Female with PMH of active tobacco abuse, COPD, Recurrent Pleural Effusion and S/p Soma MVR presents to clinic for FU. She was admitted few weeks back to [facility] with Dyspnea. Aysha YAO Underwent Thoracentesis and was dischanged. MRC Scale 3 dyspnea. No wheeze. No pedal on edema. 03/20/2015 EXAM: VSS. Chest: Good air entry noted b/l. Decreased BS at right base. CTA. CVS: Normal 16:41 HS. No murmur. PLAN: Counselled on smoking cessation. USG done in clinic and it shows a large right sided effusion. Based on the USG apperance entrapment is an concern. Due to the recurrent nature of the effusion, will plan for PleurX Catheter placement. Scheduled for 03/27/15. Infleunza vaccination and Pneumococcal vaccination. Her last spirometry was done prior to MVR and probably underestimates her FEV1. Will need to repeat once the pleural effusion resolves to get a better estimate of lung funtion. FU post PleurX catheter placement.
--- OUTSIDE RECORDS SUMMARY | 2018-05-25 12:03 | XMS REPORT | Summary of Care ---
Author Author [facility] Organization [facility] Address Unknown Phone Unavailable Encounter GIOVANA Ortiz(STACEY) [id number] Date(s): 05/15/15 - 05/15/15 [facility] [address] [facility], [address] Discharge Disposition: Home Attending Physician: Lea Lou MD Referring Physician: Lea Lou MD Vital Signs Most recent to 1 oldest [Reference Range]: Blood Pressure 129/56 mmHg [90-140/60-90 mmHg] (05/15/15 9:34 AM) Weight 54.7 kg (05/15/15 9:34 AM) Problem List Condition Effective Dates Status Health [...] 2012 Placement of stent 2010 Procedure on 2009 Tubal ligation 1982 Tonsillectomy 1961 Mitral valve operation Thoracentesis Social History Social History Type Response Smoking Status Former smoker; Type: Cigarettes; Previous treatment: None; Ready to change: No; Exposure to Tobacco Smoke None; Other Tobacco Frequency 1-2 cigarettes; Cigarette Smoking Last 365 Days Yes; Reg Smoking Cessation Counseling No Assessment and Plan Extracted from: Title: [facility] Clinic Note Author: Angeles Wilkinsfany Date: 05/15/15 Patient: MELISSA ARAIZA Age: 65 years Sex: Female : 1950 Associated Diagnoses: None Author: Brooke Wilkins Subjective Today: Doing ok Developed productive cough and went to PCP was prescribe PO antibotics on day 9 out of 10, denies fever, chills Decreased in drainage from pleurx catheter 850 to 40cc over last two weeks Review of Systems Constitutional: Negative. Eye: Negative. Ear/Nose/Mouth/Throat: Negative. Respiratory: Shortness of breath. Cardiovascular Breast: Negative. Gastrointestinal: Negative. Genitourinary: Negative. Hematology/Lymphatics: Negative. Endocrine: Negative. Immunologic: Negative. Musculoskeletal: Negative. Integumentary: Right side , itching, right skin irritation . Neurologic: Negative. Psychiatric: Negative. All other systems are negative Health Status Allergies: Allergic Reactions (All) Severity Not Documented Morphine- No reactions were documented. Plastic Tape- No reactions were documented. Canceled/Inactive Reactions (All) Severity Not Documented NKDA- No reactions were documented. Current medications: (Selected) Documented Medications Documented Coreg CR 20 mg oral capsule, extended release: 25 mg, PO, BID Keflex 500 mg oral capsule: 500 mg, 1 cap, PO, BID, for 10 day, 20 cap, 0 Refill(s) Lipitor 20 mg oral tablet: 20 mg, 1 tab, PO, Bedtime Phenergan 25 mg oral tablet: 25 mg, 1 tab, PO, Daily, for 4 day, PRN: Nausea, 15 tab, 0 Refill(s) Protonix 40 mg oral enteric coated tablet: 40 mg, 1 tab, PO, Daily Renal Caps oral: 1 cap, PO, Daily Renvela 800 mg oral tablet: 800 mg, 1 tab, PO, TID Tylenol with Codeine #3 oral tablet: 1 tab, PO, Q4H, 30 tab, PRN: for pain aspirin: 81 mg, PO, Daily hydrALAZINE 50 mg oral tablet: 50 mg, 1 tab, PO, RQ12H, 120 tab, 0 Refill(s) senna: PO, BID trazodone: 50 mg, PO, Bedtime Problem list: All Problems Anxiety / SNOMED CT [id number] / Confirmed CHF - Congestive heart failure / SNOMED CT 257916143 / Confirmed Chronic back pain / SNOMED CT 782552484 / Confirmed COPD / SNOMED CT 75436855 / Confirmed ESRD on hemodialysis / SNOMED CT [id number] / Confirmed Dialysis T, TH, S Hyperlipidemia / SNOMED CT 71608529 / Confirmed Hypertension / SNOMED CT 62557630 / Confirmed MVP - Mitral valve prolapse / SNOMED CT 3009697732 / Confirmed Renal failure, acute / SNOMED CT [id number] / Confirmed Shortness of breath dyspnea / SNOMED CT [id number] / Confirmed Smoker / SNOMED CT 241968194 / Confirmed Vascular disease / SNOMED CT 48452218 / Confirmed Resolved: Dyspnea / SNOMED CT 891432107 Resolved: Endocarditis / SNOMED CT 56666826 Resolved: TIA (transient ischemic attack) / SNOMED CT [id number] Objective Meds Scheduled Meds: None Unscheduled Meds: None PRN Meds: None One Time Meds: None Continuous Infusions: None I&O Input/Output RecordInOutBal 24hr Tot 0 0 0 24hr Tot 0 0 0 VS/Measurements Measurements from flowsheet : Measurements 04/17/2015 08:34 Height 170.18 cm Height Collection Method Stated Weight 54.773 kg Dosing Weight Collection Method Measured Body Surface Area 1.6091 m2 Body Mass Index 18.91 m2 , Vital Signs (last 24 hrs) Last Charted UCX298 mmHg (MAY 15:34) DBPL 56mmHg (MAY 15:34) Mjnyzx09.7 kg (MAY 15:) Documented vital signs: Blood Pressure ( Systolic 129 mmHg, Diastolic 73 mmHg ), Pulse ( 82 beats per min ), Temperature ( Fahrenheit, 97.7 ), Oxygen saturation 96 % ( 3 liters per min ), Measured height, 67 in, Measured weight, 122.1lb General: Alert and oriented, No acute distress. Eye: Pupils are equal, round and reactive to light, Extraocular movements are intact, Normal conjunctiva. HENT: Normocephalic, Tympanic membranes are clear. Neck: Supple, Non-tender. Respiratory: Lungs are clear to auscultation, Respirations are non-labored, Symmetrical chest wall expansion, Decreased BS Right side, right pleurX catheter noted . Cardiovascular: Normal rate, Regular rhythm, No murmur, right LE +2 . Gastrointestinal: Soft, Non-tender. Genitourinary: No inguinal tenderness. Musculoskeletal Normal range of motion. Normal strength. Integumentary: Warm, Dry, [place], right side skin tear and irritation. Neurologic: Alert, Oriented, Normal sensory, Normal motor function. Psychiatric: Cooperative, Appropriate mood & affect, Normal judgment. Review / Management Results review: No qualifying data available. Interpretation: Consistent with previous results. Impression and Plan Assessment: Dyspnea COPD Recurrent Pleural Effusion, exudative Skin irritation Tobacco abuse Plan: Breathing is better, Continue supplemental home O2, Pleural fluid cultures are negative. Chest ultrasound in clinic found the patient to have a small right pleural effusion with fibrin strains septations drained 75cc of fluid today. No signs of infection. Drainage has discreased. Will plan to remove catheter in next 2-3 weeks. Chest xay next prior to next visit Right side skin tear with irritation . Cleaned area with cloraprep and applied skin barrier to help with the irritation. Paper tape is currently being used to prevent futher skin breakdown Smoking cessation encouraged Will follow up in clinic in two weeks Brooke Wilkins RN, ACNP . Addendum Patient seen and examined with ACNP Brooke Wilkins. I agree with the assessment and plan. by Please note my addendum. Jyothula, HPI: Dyspnea has improved. No fever. No drainage from the catheter site. Draining less Soma than 100cc now. No further hospitalizations. Aysha YAO EXAM: VSS. Chest: Good air entry b/l. No wheeze. CVS: Normal HS. Pedal edema. on PLAN: Continue with drainage twice weekly. USG shows septations and small effusion. If 05/15/2015 continuos to be less than 100cc over next two weeks, will d/c catheter. Continue with 11:29 smoking cessation and Bronchodilators.
--- OUTSIDE RECORDS SUMMARY | 2018-05-25 12:03 | XMS REPORT | Summary of Care ---
Author Organization Unknown Address Unknown Phone Unavailable Encounter HQ Diana(STACEY) [id number] Date(s): 08/06/14 - 08/08/14 Formerly [facility] [address] [facility] provided by [facility] [place] [address]- Discharge Disposition: Home Physician Attending: Al Christianson MD Physician Admitting: Al Christianson MD Physician_Referring: Domenic Turcios MD Vital Signs 1 2 3 Most recent to oldest [Reference Range]: 30.48 cm (08/08/14 5:15 AM) 170.18 cm (08/06/14 12:49 PM) Height 57.386 kg (08/08/14 5:15 AM) Current Weight 98.2 DegF (08/08/14 9:00 AM) 97.9 DegF (08/08/14 4:00 AM) 98.1 DegF (08/08/14 12:00 AM) Temperature Oral [96.4-99.1 DegF] 152/79 mmHg *HI* (08/08/14 5:20 PM) 176/87 mmHg *HI* (08/08/14 5:00 PM) 149/72 mmHg *HI* (08/08/14 3:00 PM) Blood Pressure [90-140/60-90 mmHg] 16 BRMIN (08/07/14 9:19 PM) 20 BRMIN (08/06/14 9:43 PM) 24 BRMIN *HI* (08/06/14 3:44 PM) Respiratory Rate [14-20 BRMIN] 57.727 kg (08/06/14 12:49 PM) Weight 19.93 m2 (08/06/14 12:49 PM) Body Mass Index Problem List Condition Effective Dates Status Health [...] Status NKDA Active Plastic Tape Active Medications aspirin 81 mg, 1 tab, Route: PO, Drug form: ECTAB, Daily, Dosing Weight 57.727, kg, Prio rity: NOW, Start date: 08/06/14 13:54:00, Duration: 30 day, Stop date: 09/05/14 9:00:00 Notes: Do not crush or chew.(Same As: Ecotrin) Start Date: 08/06/14 Stop Date: 08/08/14 Status: Discontinued colchicine 0.3 mg, 0.5 tab, Route: PO, Drug form: TAB, Q72H, Dosing Weight 57.727, kg, Star t date: 08/09/14 16:00:00, Duration: 30 day, Stop date: 09/05/14 16:00:00 Start Date: 08/09/14 Stop Date: 08/08/14 Status: Canceled colchicine 0.6 mg oral tablet 0.6 mg, 1 tab, Route: PO, Drug form: TAB, ONCE, Dosing Weight 57.727, kg, Start date: 08/06/14 15:38:00, Stop date: 08/06/14 15:38:00 Start Date: 08/06/14 Stop Date: 08/06/14 Status: Completed Coreg 25 mg, 1 tab, Route: PO, Drug form: TAB, Q12H, Priority: NOW, Start date: 13:54:00, Duration: 30 day, Stop date: 09/05/14 9:00:00 Notes: Give with food. (Same As: Coreg) Start Date: 08/06/14 Stop Date: 08/08/14 Status: Discontinued Coreg CR 25 mg, Route: PO, Drug form: ERCAP, BID, Dosing Weight 57.727, kg, Start date: 0 08/06/14 17:00:00, Duration: 30 day, Stop date: 09/05/14 9:00:00 Start Date: 08/06/14 Stop Date: 08/06/14 Status: Discontinued DuoNeb inhalation solution 3 mL, Route: INHALATION, Drug Form: SOLN, Dosing Weight 57.727, kg, RQ6H, Start date: 08/06/14 21:13:00, Stop date: 09/05/14 20:00:00 Notes: (Same as: Duoneb) Start Date: 08/06/14 Stop Date: 08/08/14 Status: Discontinued Habitrol 21 mg, 1 patch, Route: TOP, Drug form: ERFILM, Daily, Dosing Weight 57.727, kg, Priority: STAT, Start date: 08/08/14 0:24:00, Duration: 30 day, Stop date: 09/06 9:00:00 Notes: (Same as: Habitrol)"Remove old patch before application of new patch" Start Date: 08/08/14 Stop Date: 08/08/14 Status: Discontinued Lipitor 20 mg, 1 tab, Route: PO, Drug form: TAB, Bedtime, Dosing Weight 57.727, kg, Star t date: 08/06/14 21:00:00, Duration: 30 day, Stop date: 09/04/14 21:00:00 Notes: (Same As: Lipitor) Start Date: 08/06/14 Stop Date: 08/08/14 Status: Discontinued lisinopril 5 mg, 1 tab, Route: PO, Drug form: TAB, Daily, Dosing Weight 57.727, kg, Priorit y: NOW, Start date: 08/06/14 13:53:00, Duration: 30 day, Stop date: 09/05/14 9:0 0:00 Notes: (Same as: Prinivil, Zestril) Start Date: 08/06/14 Stop Date: 08/08/14 Status: Discontinued nicotine 21 mg, 1 patch, Route: TOP, Drug form: ERFILM, Daily, Dosing Weight 57.727, kg, Start date: 08/08/14 9:00:00, Duration: 30 day, Stop date: 09/06/14 9:00:00 Notes: (Same as: Habitrol)"Remove old patch before application of new patch" Start Date: 08/08/14 Stop Date: 08/08/14 Status: Discontinued promethazine 25 mg, 2 tab, Route: PO, Drug form: TAB, BID, Dosing Weight 57.727, kg, PRN as n eeded for nausea/vomiting, Start date: 08/07/14 19:06:00, Duration: 30 day, Stop date: 09/06/14 19:05:00 Notes: (Same as: Phenergan) Start Date: 08/07/14 Stop Date: 08/08/14 Status: Discontinued Protonix 40 mg, 1 tab, Route: PO, Drug form: ECTAB, Daily, Dosing Weight 57.727, kg, Star t date: 08/07/14 9:00:00, Duration: 30 day, Stop date: 09/05/14 9:00:00 Notes: Tablet should not be chewed or crushed.(Same as: Protonix) Start Date: 08/07/14 Stop Date: 08/08/14 Status: Discontinued Renvela 800 mg, 1 tab, Route: PO, Drug form: TAB, TID, Dosing Weight 57.727, kg, Start d ate: 08/06/14 17:00:00, Duration: 30 day, Stop date: 09/05/14 13:00:00 Notes: Same as: Renvela Start Date: 08/06/14 Stop Date: 08/08/14 Status: Discontinued senna 8.6 mg, 1 tab, Route: PO, Drug Form: TAB, Dosing Weight 57.727, kg, BID, Start d ate: 08/06/14 17:00:00, Duration: 30 day, Stop date: 09/05/14 9:00:00 Notes: (Same as: Senokot) Start Date: 08/06/14 Stop Date: 08/08/14 Status: Discontinued Spiriva 18 mcg inhalation capsule 18 microgram, 1 inhalation, Route: INHALATION, Drug form: CAP, Daily, Dosing Kuldip ght 57.727, kg, Start date: 08/09/14 9:00:00, Duration: 30 day, Stop date: 09/07 9:00:00 Notes: (Same As: Spiriva). Start Date: 08/09/14 Stop Date: 08/08/14 Status: Canceled Spiriva 18 mcg inhalation capsule 18 microgram=1 inhalation, INHALATION, Daily, # 30 ea, 6 Refill(s) Start Date: 08/08/14 Status: Ordered trazodone 50 mg, 1 tab, Route: PO, Drug form: TAB, Bedtime, Dosing Weight 57.727, kg, Star t date: 08/06/14 21:00:00, Duration: 30 day, Stop date: 09/04/14 21:00:00 Notes: (Same As: Desyrel) Start Date: 08/06/14 Stop Date: 08/08/14 Status: Discontinued Tylenol with Codeine #3 oral tablet 1 tab, Route: PO, Drug Form: TAB, Dosing Weight 57.727, kg, Q4H, PRN Pain 4-6/Te mp > 100.4 F, Start date: 08/06/14 13:04:00, Duration: 30 day, Stop date: 09/05/14 13:03:00 Notes: Do not exceed 4gm/day of acetaminophen. (Same as: Tylenol with Codeine # 3) Start Date: 08/06/14 Stop Date: 08/08/14 Status: Discontinued Visipaque 320mg/ml 80 mL, Route: IVP, Drug Form: SOLN, Dosing Weight 57.727, kg, ONCALL, STAT, Star t date: 08/07/14 0:07:00, Duration: 1 doses or times, Dose=2.2ml/kg, Max dose=1 00ml -- "To be infused by Radiology Staff ONLY" Special Instructions: Dose=2.2ml/kg, Max hecu=830br -- "To be infused by Radiol ogy Staff ONLY" Start Date: 08/07/14 Stop Date: 08/07/14 Status: Completed Results ELECTROLYTES 1 2 3 Most recent to oldest [Reference Range]: 139 mEq/L (08/08/14 4:29 AM) 138 mEq/L (08/07/14 4:18 AM) 138 mEq/L (08/06/14 12:53 PM) Sodium Lvl [135-145 mEq/L] 4.4 mEq/L (08/08/14 4:29 AM) 4.1 mEq/L (08/07/14 4:18 AM) 4.1 mEq/L (08/06/14 12:53 PM) Potassium Lvl [3.5-5.1 mEq/L] 104 mEq/L (08/08/14 4:29 AM) 104 mEq/L (08/07/14 4:18 AM) 104 mEq/L (08/06/14 12:53 PM) Chloride Lvl [95-109 mEq/L] 26 mEq/L (08/08/14 4:29 AM) 28 mEq/L (08/07/14 4:18 AM) 30 mEq/L (08/06/14 12:53 PM) CO2 [24-32 mEq/L] 13.4 mEq/L (08/08/14:29 AM) 10.1 mEq/L (08/07/14 4:18 AM) 8.1 mEq/L *LOW* (08/06/14 12:53 PM) AGAP [10.0-20.0 mEq/L] CHEM PANEL 1 2 3 Most recent to oldest [Reference Range]: 4.5 mg/dL *HI* (08/08/14 4:29 AM) 5.4 mg/dL *HI* (08/07/14 4:18 AM) 4.7 mg/dL *HI* (08/06/14 12:53 PM) Creatinine Lvl [0.5-1.4 mg/dL] 10 mL/min/1.73m2 1 *NA* (08/08/14:29 AM) 8 mL/min/1.73m2 2 *NA* (08/07/14 4:18 AM) 9 mL/min/1.73m2 3 *NA* (08/06/14 12:53 PM) eGFR 17 mg/dL (08/08/14 4:29 AM) 20 mg/dL (08/07/14 4:18 AM) 16 mg/dL (08/06/14 12:53 PM) BUN [7-22 mg/dL] 4 *LOW* (08/08/14 4:29 AM) 4 *LOW* (08/07/14 4:18 AM) B/C Ratio [6-25] 119 mg/dL 4 *HI* (08/08/14 4:29 AM) 102 mg/dL 5 *HI* (08/07/14 4:18 AM) 112 mg/dL 6 *HI* (08/06/14 12:53 PM) Glucose Lvl [70-99 mg/dL] 5.6 g/dL *LOW* (08/08/14 4:29 AM) 5.3 g/dL *LOW* (08/07/14 4:18 AM) 6.5 g/dL (08/06/14 12:53 PM) Total Protein [6.4-8.4 g/dL] 2.3 g/dL *LOW* (08/08/14 4:29 AM) 2.3 g/dL *LOW* (08/07/14 4:18 AM) Albumin Lvl [3.5-5.0 g/dL] 3.3 g/dL (08/08/14 4:29 AM) 3.0 g/dL (08/07/14 4:18 AM) Globulin [2.0-4.0 g/dL] 0.7 (08/08/14:29 AM) 0.8 (08/07/14 4:18 AM) A/G Ratio [0.7-1.6] 8.6 mg/dL (08/08/14 4:29 AM) 8.9 mg/dL (08/07/14 4:18 AM) 8.8 mg/dL (08/06/14 12:53 PM) Calcium Lvl [8.5-10.5 mg/dL] 3.0 mg/dL (08/08/14 9:00 AM) 3.4 mg/dL (08/07/14 4:18 AM) 2.4 mg/dL *LOW* (08/06/14 12:53 PM) Phosphorus [2.5-4.5 mg/dL] 1.9 mg/dL (08/08/14 4:29 AM) 1.8 mg/dL (08/07/14 4:18 AM) 1.9 mg/dL (08/06/14 12:53 PM) Magnesium Lvl [1.8-2.4 mg/dL] 10 unit/L (08/08/14 4:29 AM) <6 unit/L (08/07/14 4:18 AM) ALT [0-65 unit/L] 15 unit/L (08/08/14 4:29 AM) 9 unit/L (08/07/14 4:18 AM) AST [0-37 unit/L] 85 unit/L (08/08/14 4:29 AM) 86 unit/L (08/07/14 4:18 AM) Alk Phos [39-136 unit/L] 535 unit/L *HI* (08/06/14 12:53 PM) LDH [98-192 unit/L] 0.2 mg/dL (08/08/14 4:29 AM) 0.5 mg/dL (08/07/14 4:18 AM) Bili Total [0.2-1.3 mg/dL] 34 unit/L (08/06/14 12:53 PM) Amylase Lvl [25-115 unit/L] 66 unit/L *LOW* (08/06/14 12:53 PM) Lipase Lvl [73-393 unit/L] 0.9 mMol/L (08/06/14 12:53 PM) Lactic Acid Lvl [0.5-2.2 mMol/L] 1Result Comment: The eGFR is calculated using [...] from the National Kidney Disease Education Program ( NKDEP) which additionally recommends that when the eGFR is used in patients with extremes of body mass index for purposes of drug dosing, the eGFR should be mul tiplied by the estimated BMI. 2Result Comment: The eGFR is calculated using [...] from the National Kidney Disease Education Program ( NKDEP) which additionally recommends that when the eGFR is used in patients with extremes of body mass index for purposes of drug dosing, the eGFR should be mul tiplied by the estimated BMI. 3Result Comment: The eGFR is calculated using [...] from the National Kidney Disease Education Program ( NKDEP) which additionally recommends that when the eGFR is used in patients with extremes of body mass index for purposes of drug dosing, the eGFR should be mul tiplied by the estimated BMI. 4Interpretive Data: Adult reference range values reflect the clinical guidelines of the [place] [employer]. 5Interpretive Data: Adult reference range values reflect the clinical guidelines of the [place] [employer]. 6Interpretive Data: Adult reference range values reflect the clinical guidelines of the [place] [employer]. CARDIAC ENZYMES 1 2 3 Most recent to oldest [Reference Range]: >5000 pg/mL 7 *HI* (08/07/14 4:18 AM) BNP [<=100 pg/mL] 7Interpretive Data: Elevated results are in line with increasing severity of congestive heart failure. Minor elevations between 100 and 300 may be seen with Myocardial Ischemia, Sodium retaining drugs, and compensated/treated heart failure. SPECIAL CHEMISTRY 1 2 3 Most recent to oldest [Reference Range]: 4.6 % (08/06/14 12:53 PM) Hgb A1C [<=5.6 %] PARATHYROID PROFILE 1 2 3 Most recent to oldest [Reference Range]: 1.14 mMol/L (08/07/14 4:18 AM) 1.10 mMol/L (08/06/14 12:53 PM) Ca Ion WB [1.05-1.25 mMol/L] 1.15 mMol/L (08/07/14 4:18 AM) 1.08 mMol/L (08/06/14 12:53 PM) Ca Norm WB [1.05-1.25 mMol/L] BODY FLUIDS 1 2 3 Most recent to oldest [Reference Range]: Pleural *NA* (08/06/14 4:34 PM) Prot BF Type Pleural *NA* (08/06/14 4:34 PM) LDH BF Type 1.3 g/dL 8 *NA* (08/06/14 4:34 PM) Protein BF 78 unit/L 9 *NA* (08/06/14 4:34 PM) LDH BF 8Interpretive Data: No established reference ranges. 9Interpretive Data: No established reference ranges. IMMUNOLOGY 1 2 3 Most recent to oldest [Reference Range]: Negative *NA* (08/06/14 6:36 PM) Hep Bs Ag [Negative] Negative *NA* (08/06/14 6:36 PM) Hep B Core IgM [Negative] >1000.0 mIU/mL 10 *HI* (08/06/14 6:36 PM) Hep Bs Ab [<=7.4 mIU/mL] Positive *NA* (08/06/14 6:36 PM) Hep B Core Ab [Negative] Negative *NA* (08/06/14 6:36 PM) Hep C Ab 10Interpretive Data: <=7.4 mIU/mL--------Negative for Anti-HBs. Not immune to HBV infection. 7.5-12.4 mIU/mL--Borderline for Anti-HBs and immune status should be further assessed by considering other factors such as clinical status follow-up testing, associated risk factors, and the use of additional diagnostic information. >12.4 mIU/mL-------Positive for Anti-HBs. Immune to HBV infection HEMATOLOGY 1 2 3 Most recent to oldest [Reference Range]: 8.6 K/CMM (08/08/14 4:29 AM) 8.3 K/CMM (08/07/14 4:18 AM) 11.5 K/CMM *HI* (08/06/14 12:53 PM) WBC [3.7-10.4 K/CMM] 3.22 M/CMM *LOW* (08/08/14 4:29 AM) 3.17 M/CMM *LOW* (08/07/14 4:18 AM) 3.31 M/CMM *LOW* (08/06/14 12:53 PM) RBC [4.20-5.40 M/CMM] 9.8 g/dL *LOW* (08/08/14 4:29 AM) 9.5 g/dL *LOW* (08/07/14 4:18 AM) 10.1 g/dL *LOW* (08/06/14 12:53 PM) Hgb [12.0-16.0 g/dL] 29.5 % *LOW* (08/08/14 4:29 AM) 28.9 % *LOW* (08/07/14 4:18 AM) 30.3 % *LOW* (08/06/14 12:53 PM) Hct [36.0-48.0 %] 91.6 fL (08/08/14 4:29 AM) 91.2 fL (08/07/14 4:18 AM) 91.7 fL (08/06/14 12:53 PM) MCV [80.0-98.0 fL] 30.4 pg (08/08/14 4:29 AM) 30.1 pg (08/07/14 4:18 AM) 30.5 pg (08/06/14 12:53 PM) MCH [27.0-31.0 pg] 33.2 g/dL (08/08/14 4:29 AM) 33.0 g/dL (08/07/14 4:18 AM) 33.2 g/dL (08/06/14 12:53 PM) MCHC [32.0-36.0 g/dL] 18.3 % *HI* (08/08/14 4:29 AM) 18.6 % *HI* (08/07/14 4:18 AM) 18.9 % *HI* (08/06/14 12:53 PM) RDW [11.5-14.5 %] 256 K/CMM (08/08/14 4:29 AM) 295 K/CMM (08/07/14 4:18 AM) 372 K/CMM (08/06/14 12:53 PM) Platelet [133-450 K/CMM] 7.5 fL (08/08/14 4:29 AM) 7.7 fL (08/07/14 4:18 AM) 7.6 fL (08/06/14 12:53 PM) MPV [7.4-10.4 fL] 57.5 % (08/08/14 4:29 AM) 57.5 % (08/07/14 4:18 AM) 70.8 % (08/06/14 12:53 PM) Segs [45.0-75.0 %] 19.6 % *LOW* (08/08/14 4:29 AM) 19.6 % *LOW* (08/07/14 4:18 AM) 15.0 % *LOW* (08/06/14 12:53 PM) Lymphocytes [20.0-40.0 %] 9.5 % (08/08/14 4:29 AM) 8.0 % (08/07/14 4:18 AM) 6.8 % (08/06/14 12:53 PM) Monocytes [2.0-12.0 %] 12.2 % *HI* (08/08/14 4:29 AM) 13.4 % *HI* (08/07/14 4:18 AM) 6.2 % *HI* (08/06/14 12:53 PM) Eosinophils [0.0-4.0 %] 1.2 % *HI* (08/08/14 4:29 AM) 1.5 % *HI* (08/07/14 4:18 AM) 1.2 % *HI* (08/06/14 12:53 PM) Basophils [0.0-1.0 %] 4.9 K/CMM (08/08/14 4:29 AM) 4.8 K/CMM (08/07/14 4:18 AM) 8.2 K/CMM *HI* (08/06/14 12:53 PM) Segs-Bands # [1.5-8.1 K/CMM] 1.7 K/CMM (08/08/14 4:29 AM) 1.6 K/CMM (08/07/14 4:18 AM) 1.7 K/CMM (08/06/14 12:53 PM) Lymphocytes # [1.0-5.5 K/CMM] 0.8 K/CMM (08/08/14 4:29 AM) 0.7 K/CMM (08/07/14 4:18 AM) 0.8 K/CMM (08/06/14 12:53 PM) Monocytes # [0.0-0.8 K/CMM] 1.0 K/CMM *HI* (08/08/14 4:29 AM) 1.1 K/CMM *HI* (08/07/14 4:18 AM) 0.7 K/CMM *HI* (08/06/14 12:53 PM) Eosinophils # [0.0-0.5 K/CMM] 0.1 K/CMM (08/08/14 4:29 AM) 0.1 K/CMM (08/07/14 4:18 AM) 0.1 K/CMM (08/06/14 12:53 PM) Basophils # [0.0-0.2 K/CMM] 1+ *ABN* (08/07/14 4:18 AM) Anisocyte [None Seen] 13.5 seconds (08/08/14 4:29 AM) 13.4 seconds (08/07/14 4:18 AM) 13.1 seconds (08/06/14 12:53 PM) PT [12.0-14.7 seconds] 1.03 11 (08/08/14 4:29 AM) 1.02 12 (08/07/14 4:18 AM) 0.99 13 (08/06/14 12:53 PM) INR [0.85-1.17] 31.9 seconds 14 (08/08/14 4:29 AM) 28.0 seconds 15 (08/07/14 4:18 AM) 33.1 seconds 16 (08/06/14 12:53 PM) PTT [22.9-35.8 seconds] 11Interpretive Data: RECOMMENDED RANGES FOR PROTIME INR: 2.0-3.0 for most medical and surgical thromboembolic states. 2.5-3.5 for artificial heart valves and recurrent embolism. INR SHOULD BE USED ONLY FOR PATIENTS ON STABLE ANTICOAGULANT THERAPY. 12Interpretive Data: RECOMMENDED RANGES FOR PROTIME INR: 2.0-3.0 for most medical and surgical thromboembolic states. 2.5-3.5 for artificial heart valves and recurrent embolism. INR SHOULD BE USED ONLY FOR PATIENTS ON STABLE ANTICOAGULANT THERAPY. 13Interpretive Data: RECOMMENDED RANGES FOR PROTIME INR: 2.0-3.0 for most medical and surgical thromboembolic states. 2.5-3.5 for artificial heart valves and recurrent embolism. INR SHOULD BE USED ONLY FOR PATIENTS ON STABLE ANTICOAGULANT THERAPY. 14Interpretive Data: Heparin Therapeutic Range: 57 - 92 Seconds 15Interpretive Data: Heparin Therapeutic Range: 57 - 92 Seconds 16Interpretive Data: Heparin Therapeutic Range: 57 - 92 Seconds BACTERIAL - SEROLOGY 1 2 3 Most recent to oldest [Reference Range]: Negative 17 (08/06/14 12:53 PM) MRSA by PCR 17Interpretive Data: Interpretive Data: The [employer] [...] reaction (PCR) assay detects a proprietary sequence indicat shira of the integration of the SCCmec cassette into the Staphylococcus aureus chr omosome, indicating the presence of MRSA DNA. The assay utilizes FDA cleared IV D reagents. Performance characteristics have been verified by the [facility] within the [facility]. The [facility] is authorized under the Clinical Laboratory Improvement Amendment of 1 988 (CLIA-88) to perform high complexity testing. Immunizations No data available for this section Procedures Procedure Date Related Diagnosis Body Site Mitral valve operation Thoracentesis Social History Social History Type Response Smoking Status Former smoker; Type: Cigarettes; Previous treatment: None; Ready to change: No; Exposure to Tobacco Smoke None; Other Tobacco Frequency 1-2 cigarettes; Cigarette Smoking Last 365 Days Yes; Reg Smoking Cessation Counseling No Assessment and Plan Extracted from: Title: Progress Note * Author: Marilou Marin MD Date: 08/08/14 Impression and Plan The patient was seen and examined by me with the resident/ARCHITECTURAL REPRESENTATIVE/PA and I agree with the History/Exam documented. 1.ESRD: had extra PUF and another HD/UF yesterday. QTTS 2.Lytes: within range 3.ACD: add epogen if further drop 4.BP: acceptable. titrate meds. 5.CHF and recurrent pleural effusion: s/p recent MVR. had another thoracentesis on 08/06. F/U pulmonary recs. echo repeated woth Ef 25% and trivial effusion. 6.life vest. might be discharged today . will see in HD unit anita
--- OUTSIDE RECORDS SUMMARY | 2018-05-25 12:03 | XMS REPORT | Summary of Care ---
Author Author [facility] Organization [facility] Address Unknown Phone Unavailable Encounter GIOVANA Ortiz(STACEY) [id number] Date(s): 03/28/15 - 03/29/15 [facility] [address], [address] Vital Signs No data available for this [...] Status morphine Active Plastic Tape Active Medications [place] 5/325 oral tablet 1 tab, PO, Q4-6H, PRN Pain Score 7-10, X 5 day, # 30 tab, 0 Refill(s), called to pharmacy Start Date: 03/28/15 Stop Date: 04/02/15 Status: Ordered Results No data available for this section [...]
--- OUTSIDE RECORDS SUMMARY | 2018-05-25 12:03 | XMS REPORT | Summary of Care ---
Author Author [facility] Organization [facility] Address Unknown Phone Unavailable Encounter GIOVANA Ortiz(STACEY) [id number] Date(s): 04/17/15 - 04/17/15 [facility] [address], [address] Discharge Disposition: Home Attending Physician: Lea Lou MD Referring Physician: Lea Lou MD Vital Signs Most recent to 1 oldest [Reference Range]: Height 170.18 cm (04/17/15 8:34 AM) Temperature Oral 97.9 DegF [96.4-99.1 DegF] (04/17/15 8:34 AM) Blood Pressure 151/70 mmHg [90-140/60-90 mmHg] *HI* (04/17/15 8:34 AM) Respiratory Rate 16 BRMIN [14-20 BRMIN] (04/17/15 8:34 AM) Peripheral Pulse 83 bpm Rate [60-100 bpm] (04/17/15 8:34 AM) Weight 54.773 kg (04/17/15 8:34 AM) Body Mass Index 18.91 m2 (04/17/15 8:34 AM) Problem List Condition Effective Dates Status [...] No Assessment and Plan Extracted from: Title: [facility] Clinic Note Author: Brooke Wilkins Date: 04/17/15 Patient: MELISSA ARAIZA Age: 65 years Sex: Female : 1950 Associated Diagnoses: None Author: Brooke Wilkins Subjective Today patient denies shortness of breath, has been draining 1000cc 3-4 times week, denies any fever chills Review of Systems Constitutional: Negative. Eye: Negative. Ear/Nose/Mouth/Throat: Negative. Respiratory: Shortness of breath, Cough, Sputum production. Cardiovascular Breast: Negative. Gastrointestinal: Negative. Genitourinary: Negative. Hematology/Lymphatics: Negative. Endocrine: Negative. Immunologic: Negative. Musculoskeletal: Negative. Integumentary: skin redness on Right side, itching. Neurologic: Negative. Psychiatric: Negative. All other systems [...] list: All Problems Anxiety / SNOMED CT [id number] / Confirmed CHF - Congestive heart failure / SNOMED CT 350868532 / Confirmed Chronic back pain / SNOMED CT 024525480 / Confirmed COPD / SNOMED CT 18064252 / Confirmed ESRD on hemodialysis / SNOMED CT [id number] / Confirmed Dialysis T, TH, S Hyperlipidemia / SNOMED CT 16620127 / Confirmed Hypertension / SNOMED CT 77542547 / Confirmed MVP - Mitral valve prolapse / SNOMED CT 0427047430 / Confirmed Renal failure, acute / SNOMED CT [id number] / Confirmed Shortness of breath dyspnea / SNOMED CT [id number] / Confirmed Smoker / SNOMED CT 655217803 / Confirmed Vascular disease / SNOMED CT 43896331 / Confirmed Resolved: Dyspnea / SNOMED CT 641324000 Resolved: Endocarditis / SNOMED CT 07153930 Resolved: TIA (transient ischemic attack) / SNOMED CT [id number] Objective Meds Scheduled Meds: None Unscheduled Meds: [...] Signs (last 24 hrs) Last Charted Temp Oral97.9 DegF (APR 17) Heart Rate Pihoaqmyoo46 bpm (APR 17) Resp Rate 16 BRMIN (APR 17) SBPH 151mmHg (APR 17) DBP70 mmHg (APR 17) Catnqd33.773 kg (APR 17) Txndds998.18 cm (APR 17) BMI18.91 (APR 17) Documented vital signs: Blood Pressure ( Systolic [...] . Cardiovascular: Normal rate, Regular rhythm, No murmur. Gastrointestinal: Soft, Non-tender. Genitourinary: No inguinal tenderness. Musculoskeletal Normal range of motion. Normal strength. Integumentary: Warm, Dry, [place], mild skin irriation from dressing noted. Neurologic: Alert, Oriented, Normal sensory, Normal motor function. Psychiatric: Cooperative, Appropriate mood & affect, Normal judgment. Review / Management Results review: No qualifying data available. Interpretation: Consistent with previous results. Impression and Plan Assessment: Dyspnea COPD Recurrent Pleural Effusion Skin irritation Tobacco abuse Plan: Continue supplemental home O2, Chest ultrasound in clinic found the patient to have a moderate to large right pleural effusion drained 1200 cc of fluid today. Suture removed site is without signs of infection. Instructed the patient to drain drain the Pleurx 3 to 4 times a week and PRN for SOB Cleaned area with cloraprep and applied skin barrier to help with the irritation. Paper tape is currently being used to prevent futher skin breakdown Smoking cessesion encouraged education provided Will follow up in clinic in two weeks . The patient was seen and examined by me with the resident/LITIGATION PARALEGAL/PA and I agree with the History/Exam documented. Addendum Patient seen and examined with CIPRIANO Wilkins. I agree with the assessment and plan. by Please note my addendum. LETY Lou: Patient has been draining 1000cc 3-4 times a week. No erythema, pain or swelling at [place] the catheter site. She denies any fever. She reports improvement in dyspnea. Aysha YAO EXAM: VSS. Chest: Good air entry b/l. Decreased BS at right base. CVS: NAD. on PLAN: Continue with Spiriva for COPD. Albuterol PRN. No exacerbations. Influenza 04/17/2015 vaccination. Continue to drain the catheter 3-4 times a week. USG shows a moderate 16:38 effusion with septations. 1000cc drained in clinic. FU in 2 weeks. Counselled on signs of infection.
--- OUTSIDE RECORDS SUMMARY | 2018-05-25 12:03 | XMS REPORT | Summary of Care ---
Author Author [facility] Organization [facility] Address Unknown Phone Unavailable Encounter GIOVANA Ortiz(STACEY) [id number] Date(s): 05/01/15 - 05/01/15 [facility] [address] [facility], [address] Discharge Disposition: Home Attending Physician: Lea Lou MD Admitting Physician: Lea Lou MD Vital Signs Most recent to 1 2 oldest [Reference Range]: Height 170.18 cm 170.18 cm (05/01/15 10:10 AM) (05/01/15 9:12 AM) Temperature Oral 97.3 DegF 97.3 DegF [96.4-99.1 DegF] (05/01/15 10:10 AM) (05/01/15 9:12 AM) Blood Pressure 141/76 mmHg [90-140/60-90 mmHg] *HI* (05/01/15 10:10 AM) Respiratory Rate 20 BRMIN 20 BRMIN [14-20 BRMIN] (05/01/15 10:10 AM) (05/01/15 9:12 AM) Peripheral Pulse 91 bpm 91 bpm Rate [60-100 bpm] (05/01/15 10:10 AM) (05/01/15 9:12 AM) Weight 55.909 kg 55.909 kg (05/01/15 10:10 AM) (05/01/15 9:12 AM) Body Mass Index 19.3 m2 19.3 m2 (05/01/15 10:10 AM) (05/01/15 9:12 AM) Problem List Condition Effective Dates Status [...]
--- OUTSIDE RECORDS SUMMARY | 2018-05-25 12:03 | XMS REPORT | Summary of Care ---
Author Author [facility] Organization [facility] Address Unknown Phone Unavailable Encounter HQ Diana(FIN) [id number] Date(s): 04/03/15 - 04/03/15 [facility] [address] [facility], [address] Discharge Disposition: Home Attending Physician: Lea Lou MD Vital Signs No [...] No Assessment and Plan Extracted from: Title: [place] PCCM Progress Note Author: Brooke Wilkins Date: 04/03/15 Patient: MELISSA ARAIZA Age: 65 years Sex: [...] TTS hemodialysis, Feb 2015 was sent to [facility] in [place], [place] by Dr Caldwell for SOB and reported having thoracentesis. Continues to be experience SOB, utilizes supplemental O2 2LNC at home. Due to recurrent pleural effusions a Right Pleurx drain was placed on 03/27/15 in which she had bleedind from the entry site in which an additional suture and silver nitrate was used to obtain homeiostasis. Today patient has mild shortness of breath and states that she needs to be drained, pain at Right side chest but better than last week, reports draining 600 cc on Wednesday Review of Systems Constitutional: Negative. Eye: Negative. Ear/Nose/Mouth/Throat: Negative. Respiratory: Shortness of breath, Cough, Sputum production. Cardiovascular: Peripheral edema, reports much better now. Breast: Negative. Gastrointestinal: Negative. Genitourinary: Negative. Hematology/Lymphatics: Negative. Endocrine: Negative. Immunologic: Negative. Musculoskeletal: Negative. Integumentary: skin redness on Right side, itching. Neurologic: Negative. Psychiatric: Negative. All other systems are negative Health Status Allergies: Allergic Reactions (All) Severity Not Documented Morphine- No reactions were documented. Plastic Tape- No reactions were documented. Current medications: (Selected) [...] list: All Problems Anxiety / SNOMED CT [id number] / Confirmed CHF - Congestive heart failure / SNOMED CT 684975876 / Confirmed Chronic back pain / SNOMED CT 681160179 / Confirmed COPD / SNOMED CT 52166083 / Confirmed ESRD on hemodialysis / SNOMED CT [id number] / Confirmed Dialysis T, TH, S Hyperlipidemia / SNOMED CT 56844160 / Confirmed Hypertension / SNOMED CT 06078508 / Confirmed MVP - Mitral valve prolapse / SNOMED CT 4049573139 / Confirmed Renal failure, acute / SNOMED CT [id number] / Confirmed Shortness of breath dyspnea / SNOMED CT [id number] / Confirmed Smoker / SNOMED CT 968944688 / Confirmed Vascular disease / SNOMED CT 66338174 / Confirmed Resolved: Dyspnea / SNOMED CT 747789318 Resolved: Endocarditis / SNOMED CT 93194134 Resolved: TIA (transient ischemic attack) / SNOMED CT [id number] Objective VS/Measurements Documented vital signs: Blood Pressure ( Systolic [...] Normal range of motion. Normal strength. Integumentary: mild skin irriation from dressing noted, Not warm. Neurologic: Alert, Oriented, Normal sensory, Normal motor function. Psychiatric: Cooperative, Appropriate mood & affect, Normal judgment. Review / Management Results review: No qualifying data available. Interpretation: Consistent with previous results. Impression and Plan Assessment: 1. Dyspnea 2. COPD 3. Recurrent Pleural Effusion 4 Pain 5. Skin irritation 6. Tobacco abuse Plan: 1. Continue supplemental O2, patient is scheduled for repeat PFT will start nebs if lower that predicted 2. Chest xray and Chest ultrasound in clinic found the patient to have a large right pleural effusion drained 1200 cc of fluid today. Instructed the patient to drain drain the Pleurx 3x a week 3. Pain at plurex site have tried tylenol 3 but does not provide complete control Pt was give [place] 5/325 prescription. Discussed side effects of norco with spouse and patient instructed then to call if exsperiencing those side effects 4. Cleaned area with cloraprep and applied skin barrier to help with the irritation. Skin barrier given to patient to use at home and instructed patient to call if irritation gets worse 5. Smoking cessesion encouraged education provided Will follow up in clinic in two weeks . Addendum Patient [facility] I agree with the by asessment and plan. Please note my addendum. Jyothula, HPI: Pain is better. No fever or drainage from chest tube site. 600 cc drained at home. Soma USG done in clinic shows moderate right sided effusion. Aysha YAO EXAM: VSS. Chest: Decreased BS on right base. Air entry is good b/l. No wheeze. on PLAN: Drain in clinic. Will increase schedule to three times a week. Continue with 04/04/2015 Inhalers. Provided with Narco for severe breakthroughpain. Explained danger signs of 18:28 infection. FU in clinic in 2 weeks. Delayed note completion.
--- OUTSIDE RECORDS SUMMARY | 2018-05-25 12:03 | XMS REPORT | Summary of Care ---
Author Author [facility] Organization [facility] Address Unknown Phone Unavailable Encounter GIOVANA Ortiz(STACEY) [id number] Date(s): 05/29/15 - 05/29/15 [facility] [address] Discharge Disposition: Home Attending Physician: Lea Lou MD Referring Physician: Lea Lou MD Vital Signs Most recent to 1 oldest [Reference Range]: Height 170.18 cm (05/29/15 10:29 AM) Blood Pressure 147/87 mmHg [90-140/60-90 mmHg] *HI* (05/29/15 10:29 AM) Peripheral Pulse 81 bpm Rate [60-100 bpm] (05/29/15 10:29 AM) Weight 46.364 kg (05/29/15 10:29 AM) Body Mass Index 16.01 m2 (05/29/15 10:29 AM) Problem List Condition Effective Dates Status [...]
--- OUTSIDE RECORDS SUMMARY | 2018-05-25 12:03 | XMS REPORT | Summary of Care ---
Author Organization Unknown Address Unknown Phone Unavailable Encounter GIOVANA Ortiz(STACEY) [id number] Date(s): 07/25/14 - 07/25/14 [facility] [address] Discharge Disposition: Home Physician Attending: Al Christianson MD Physician_Referring: Tami Salas PA Reason for Visit 2 WKS FOLLOW UP Vital Signs Most recent to 1 2 oldest [Reference Range]: Height 170.1 cm 170.18 cm (07/25/14 2:01 PM) (07/18/14 4:31 PM) Temperature Oral 97.4 DegF 97.9 DegF [96.4-99.1 DegF] (07/25/14 2:01 PM) (07/18/14 4:31 PM) Systolic Blood 176 mmHg 176 mmHg Pressure [90-140 *HI* *HI* mmHg] (07/25/14 2:01 PM) (07/18/14 4:31 PM) Diastolic Blood 81 mmHg 81 mmHg Pressure [60-90 (07/25/14 2:01 PM) (07/18/14 4:31 PM) mmHg] Respiratory Rate 18 BRMIN [14-20 BRMIN] (07/25/14 2:01 PM) Peripheral Pulse 74 bpm 87 bpm Rate [60-100 bpm] (07/25/14 2:01 PM) (07/18/14 4:31 PM) Weight 57.003 kg 60.71 kg (07/25/14 2:01 PM) (07/18/14 4:31 PM) Body Mass Index 19.7 m2 20.96 m2 (07/25/14 2:01 PM) (07/18/14 4:31 PM) Problem List Condition Effective Dates Status [...]
--- OUTSIDE RECORDS SUMMARY | 2018-05-25 12:03 | XMS REPORT | Summary of Care ---
Author Author [facility] Organization [facility] Address Unknown Phone Unavailable Encounter GIOVANA Ortiz(STACEY) [id number] Date(s): 03/29/15 - 03/29/15 [facility] [address] [facility], [address] Discharge Disposition: Home Attending Physician: Lea Lou MD Referring Physician: Lea Lou MD Vital Signs Most recent to 1 2 oldest [Reference Range]: Height 170.18 cm 170.18 cm (03/29/15 10:33 AM) (03/27/15 2:32 PM) Most recent to 1 2 oldest [Reference Range]: Temperature Oral 96.9 DegF [96.4-99.1 DegF] (03/29/15 10:33 AM) Most recent to 1 2 oldest [Reference Range]: Blood Pressure 121/79 mmHg 136/77 mmHg [90-140/60-90 mmHg] (03/29/15 10:33 AM) (03/27/15 2:32 PM) Most recent to 1 2 oldest [Reference Range]: Respiratory Rate 16 BRMIN 20 BRMIN [14-20 BRMIN] (03/29/15 10:33 AM) (03/27/15 2:32 PM) Most recent to 1 2 oldest [Reference Range]: Peripheral Pulse 92 bpm 112 bpm Rate [60-100 bpm] (03/29/15 10:33 AM) *HI* (03/27/15 2:32 PM) Most recent to 1 2 oldest [Reference Range]: Weight 53.182 kg (03/27/15 2:32 PM) Most recent to 1 2 oldest [Reference Range]: Body Mass Index 18.36 m2 (03/27/15 2:32 PM) Problem List Condition Effective Dates Status [...] Status morphine Active Plastic Tape Active Medications Keflex 500 mg oral capsule 500 mg=1 cap, PO, BID, # 20 cap, 0 Refill(s) Start Date: 03/29/15 Stop Date: 04/08/15 Status: Ordered Results No data available for [...] No Assessment and Plan Extracted from: Title: [facility] Clinic Note Author: Brooke Wilkins Date: 03/29/15 Patient: MELISSA ARAIZA Age: 65 years Sex: Female : 1950 Associated Diagnoses: None Author: Brooke Wilkins Results Review Health Status Allergies: Allergies (2) ActiveReaction morphineNone Documented Plastic TapeNone Documented Current medications: Home Medications (13) Active aspirin 81 mg, PO, Daily Coreg CR 20 mg oral capsule, extended release 25 mg, PO, BID hydrALAZINE 50 mg oral tablet 50 mg=1 tab, PO, RQ12H Keflex 500 mg oral capsule 500 mg=1 cap, PO, BID Lipitor 20 mg oral tablet 20 mg=1 tab, PO, Bedtime [place] 5/325 oral tablet 1 tab, PRN, PO, Q4-6H Phenergan 25 mg oral tablet 25 mg=1 tab, PRN, PO, Daily Protonix 40 mg oral enteric coated tablet 40 mg=1 tab, PO, Daily Renal Caps oral 1 cap, PO, Daily Renvela 800 mg oral tablet 800 mg=1 tab, PO, TID senna , PO, BID trazodone 50 mg, PO, Bedtime Tylenol with Codeine #3 oral tablet 1 tab, PRN, PO, Q4H Tobacco use: Currently using tobacco Subjective Patient is a 65-year-old woman who has hypertension, coronary artery disease, congestive heart failure, pulmonary hypertension, COPD, peripheral vascular disease, GERD, anemia of chronic disease, as well as recent endocarditis, mitral valve prolapse, status post mitral valve replacement (06/28). She has also end- stage renal disease and received TTS hemodialysis and recurent Right pleural effusions in which she had a pleureX catheter placed on 03/27/15 that cotinued to bleed. Surgery saw the patient addaded a suture to catheter exit site and cauderized with silver nitrate. Pt resports no bleeding at home. Objective General: Alert and oriented, No acute distress. Respiratory: Lungs are clear to auscultation, Respirations are non-labored, Breath sounds are equal. Cardiovascular: Normal rate, Regular rhythm. Gastrointestinal: Soft, Non-tender. Musculoskeletal Normal range of motion. Integumentary: right pleurx cather . Neurologic: Alert, Oriented. Psychiatric: Cooperative, Appropriate mood & affect, Normal judgment. Assessment Bleeding Post Surgery Pleural effusion Pneumothorax Ex Vacu Smoker Plan No bleeding at this time Ultrasound of chest done which should an effusion, pleureX catheter drained 550 cc Educated the daughter on how to drain and change the dressing to the pleureX catheter. Daughter verbalized understanding. Instructed the daughter to drain the catheter twice and PRN if patient becomes SOB Explained and educated patient and daughter on complications of having a pleurex cathater and informed them to call the office if she experience any of them Pneumothorax no intervention at this time Encourage smoking cessation The patient will follow up in clinic next week Addendum Patient seen and examined with [facility] Wilkins. I agree with the assesment and plan. by HPI: Pain has improved. No bleeding. Site is clean. She feels dizzy occasionally. Jyothula, Tolerate dialysis well yesterday. Soma EXAM: VSS. Chest: CTA. No wheeze. Aysha YAO PLAN: USG was done in office and showed a moderate effusion. Catheter drained 550 cc. on Patient and daughter educated about the care plan. Taught her about signs of infection. 03/29/2015 FU next week in clinic. 12:56
--- OUTSIDE RECORDS SUMMARY | 2018-05-25 12:03 | XMS REPORT | Summary of Care ---
Author Author [facility] Organization [facility] Address Unknown Phone Unavailable Encounter GIOVANA Ortiz(STACEY) [id number] Date(s): 03/27/15 - 03/27/15 [facility] [address] Discharge Disposition: Home Attending Physician: Lea Lou MD Referring Physician: Lea Lou MD Vital Signs Most recent to 1 oldest [Reference Range]: Height 170.18 cm (03/27/15 8:19 AM) Most recent to 1 oldest [Reference Range]: Weight 53.182 kg (03/27/15 8:19 AM) Most recent to 1 oldest [Reference Range]: Body Mass Index 18.36 m2 (03/27/15 8:19 AM) Problem List Condition Effective Dates Status [...]
--- OUTSIDE RECORDS SUMMARY | 2018-05-25 12:03 | XMS REPORT | Summary of Care ---
Author Author [facility] Organization [facility] Address Unknown Phone Unavailable Encounter GIOVANA Ortiz(STACEY) [id number] Date(s): 07/26/17 - 07/26/17 [facility] [address] [place] [address]- Encounter Diagnosis Atherosclerotic heart disease of [place] coronary artery with unspecified angina pectoris (Final) - 08/06/17 Occlusion and stenosis of bilateral carotid arteries (Final) - Hypertensive heart and chronic kidney disease with heart failure and with stage 5 chronic kidney disease, or end stage renal disease (Final) - End stage renal disease (Final) - Chronic systolic (congestive) heart failure (Final) - Dependence on renal dialysis (Final) - Nicotine dependence, cigarettes, uncomplicated (Final) - long term acute care registered nurse (current) use of anticoagulants (Final) - Personal history of transient ischemic attack (TIA), and cerebral infarction wit hout residual deficits (Final) - Pure hypercholesterolemia, unspecified (Final) - Chronic obstructive pulmonary disease, unspecified (Final) - Presence of cardiac pacemaker (Final) - Discharge Disposition: Home or Self Care Attending Physician: Robbie Prakash MD Referring Physician: Robbie Prakash MD Vital Signs Most recent to 1 2 oldest [Reference Range]: Height 175.26 cm (07/23/17 9:46 AM) Temperature Oral 98.1 DegF [96.4-99.1 DegF] (07/23/17 9:54 AM) Blood Pressure 162/77 mmHg 135/56 mmHg [90-140/60-90 mmHg] *HI* (07/23/17 9:54 AM) (07/26/17 7:21 AM) Respiratory Rate 18 BRMIN 22 BRMIN [14-20 BRMIN] (07/26/17 7:21 AM) *HI* (07/23/17 9:54 AM) Peripheral Pulse 83 bpm 75 bpm Rate [60-100 bpm] (07/26/17 7:21 AM) (07/23/17 9:54 AM) Weight 54.636 kg (07/23/17 9:46 AM) Body Mass Index 17.79 m2 (07/23/17 9:46 AM) Problem List Condition Effective Dates Status [...] Alerts Substance Reaction Severity Status morphine Active Ativan Active Plastic Tape Active Medications albuterol 0.083% inhalation solution 2.49 mg=3 mL, NEB, Q6H, PRN as needed for shortness of breath, # 120 ea, 3 Refil l(s) Start Date: 07/23/17 Stop Date: 08/22/17 Status: Ordered albuterol 90 mcg/inh inhalation aerosol 2 puff, INHALATION, QID, # 17 gm, 0 Refill(s) Start Date: 07/23/17 Status: Ordered AMIODarone 200 mg oral tablet 200 mg=1 tab, PO, BID, # 60 tab, 0 Refill(s) Start Date: 07/23/17 Status: Ordered amLODIPine 5 mg oral tablet 5 mg=1 tab, PO, Daily, # 30 tab, 0 Refill(s) Start Date: 07/23/17 Status: Ordered Benadryl 50 mg, Route: PO, ONCE, Dosing Weight 54.636, kg, Start date: 07/26/17 7:13:[address], Stop date: 07/26/17 7:13:00 SHIFT BOSS Start Date: 07/26/17 Stop Date: 07/26/17 Status: Completed Eliquis 2.5 mg oral tablet 2.5 mg, PO, Q12H, last dose 07/23/17 pm per MD, 0 Refill(s) Start Date: 07/23/17 Stop Date: 07/26/17 Status: Deleted Entresto 49 mg-51 mg oral tablet 1 tab, PO, BID, # 28 tab, 0 Refill(s) Start Date: 07/23/17 Stop Date: 08/06/17 Status: Ordered folic acid 1 mg oral tablet 1 mg=1 tab, PO, Daily, # 30 tab, 0 Refill(s) Start Date: 07/23/17 Status: Ordered Imdur 60 mg oral tablet, extended release 60 mg=1 tab, PO, QAM, # 30 tab, 0 Refill(s) Start Date: 07/23/17 Status: Ordered Lasix 20 mg oral tablet 20 mg=1 tab, PO, Daily, # 30 tab, 0 Refill(s) Start Date: 07/23/17 Status: Ordered lisinopril 5 mg oral tablet 5 mg=1 tab, PO, Daily, # 30 tab, 0 Refill(s) Start Date: 07/23/17 Status: Ordered LORazepam 1 mg oral tablet 0.5 mg=0.5 tab, PO, Daily, PRN Anxiety, # 30 tab, 0 Refill(s) Start Date: 07/23/17 Stop Date: 07/26/17 Status: Deleted meclizine 12.5 mg oral tablet 12.5 mg=1 tab, PO, TID, PRN Other-See Comments, t-th-sat dyalisis, # 30 tab, 0 R efill(s) Start Date: 07/23/17 Stop Date: 08/02/17 Status: Ordered nitroglycerin SL Tab 0.4 mg, 1 tab, Route: SL, Drug form: TAB, Q5Min, Dosing Weight 54.636, kg, PRN C hest Pain, Start date: 07/26/17 8:27:00 SHIFT BOSS, Duration: 3 doses or times, Stop da te: Limited # of times Notes: (Same as:Nitroquick, Nitrostat)"Do Not Crush" Sublingual tablet Start Date: 07/26/17 Stop Date: 07/26/17 Status: Discontinued [place] 5/325 oral tablet 1 tab, PO, Q4-6H, PRN, # 30 tab, 0 Refill(s) Start Date: 07/23/17 Stop Date: 07/28/17 Status: Ordered Phenergan 25 mg rectal suppository See Instructions, PRN Nausea & Vomiting, 1 supp [place] Q12H as needed, 0 Refill(s) Start Date: 07/26/17 Status: Ordered senna 0 Refill(s) Start Date: 07/23/17 Status: Ordered Sodium Chloride 0.9% IV 500 mL 500 mL, Rate: 20 ml/hr, Infuse over: 25 hr, Route: IV, Dosing Weight 54.636 kg, Total Volume: 500, Start date: 07/26/17 8:27:00 SHIFT BOSS, Duration: 24 hr, Stop date: 07/27/17 8:26:00 SHIFT BOSS, 1.63, m2 Start Date: 07/26/17 Stop Date: 07/26/17 Status: Discontinued Xarelto 20 mg oral tablet 20 mg=1 tab, PO, QPM, # 30 tab, 3 Refill(s) Start Date: 07/26/17 Status: Ordered Results ELECTROLYTES Most recent to 1 oldest [Reference Range]: Sodium Lvl [135-145 134 mEq/L mEq/L] *LOW* (07/23/17 9:53 AM) Potassium Lvl 4.7 mEq/L [3.5-5.1 mEq/L] (07/23/17 9:53 AM) Chloride Lvl [95-109 95 mEq/L mEq/L] (07/23/17 9:53 AM) CO2 [24-32 mEq/L] 28 mEq/L (07/23/17 9:53 AM) AGAP [10.0-20.0 15.7 mEq/L mEq/L] (07/23/17 9:53 AM) CHEM PANEL Most recent to 1 oldest [Reference Range]: Creatinine Lvl 4.97 mg/dL [0.50-1.40 mg/dL] *HI* (07/23/17 9:53 AM) eGFR 9 mL/min/1.73m2 1 *NA* (07/23/17 9:53 AM) BUN [7-22 mg/dL] 34 mg/dL *HI* (07/23/17 9:53 AM) B/C Ratio [6-25] 7 (07/23/17 9:53 AM) Glucose Lvl [70-99 99 mg/dL mg/dL] (07/23/17 9:53 AM) Total Protein 7.4 g/dL [6.4-8.4 g/dL] (07/23/17 9:53 AM) Albumin Lvl [3.5-5.0 3.4 g/dL g/dL] *LOW* (07/23/17:53 AM) Globulin [2.7-4.2 4.0 g/dL g/dL] (07/23/17 9:53 AM) A/G Ratio [0.7-1.6] 0.8 (07/23/17 9:53 AM) Calcium Lvl 8.8 mg/dL [8.5-10.5 mg/dL] (07/23/17 9:53 AM) ALT [0-65 unit/L] 11 unit/L (07/23/17 9:53 AM) AST [0-37 unit/L] 11 unit/L (07/23/17 9:53 AM) Alk Phos [39-136 126 unit/L unit/L] (07/23/17 9:53 AM) Bili Total [0.2-1.3 0.5 mg/dL mg/dL] (07/23/17 9:53 AM) 1Result Comment: The eGFR is calculated using [...] be mul tiplied by the estimated BMI. LIPIDS Most recent to 1 oldest [Reference Range]: CHD Risk [3.90-5.80] 2.72 *LOW* (07/23/17 9:53 AM) Chol [<=199 mg/dL] 155 mg/dL (07/23/17 9:53 AM) Trig [<=149 mg/dL] 109 mg/dL (07/23/17 9:53 AM) HDL [>=61 mg/dL] 57 mg/dL *LOW* (07/23/17:53 AM) LDL (Calculated) 76 mg/dL [<=99 mg/dL] (07/23/17 9:53 AM) VLDL 22 *NA* (07/23/17:53 AM) HEMATOLOGY Most recent to 1 oldest [Reference Range]: WBC [3.7-10.4 K/CMM] 5.3 K/CMM (07/23/17 9:53 AM) RBC [4.20-5.40 3.56 M/CMM M/CMM] *LOW* (07/23/17:53 AM) Hgb [12.0-16.0 g/dL] 10.8 g/dL *LOW* (07/23/17 9:53 AM) Hct [36.0-48.0 %] 32.3 % *LOW* (07/23/17:53 AM) MCV [80.0-98.0 fL] 90.8 fL (07/23/17 9:53 AM) MCH [27.0-31.0 pg] 30.4 pg (07/23/17 9:53 AM) MCHC [32.0-36.0 33.4 g/dL g/dL] (07/23/17 9:53 AM) RDW [11.5-14.5 %] 17.3 % *HI* (07/23/17:53 AM) MPV [7.4-10.4 fL] 7.8 fL (07/23/17 9:53 AM) Platelet [133-450 176 K/CMM K/CMM] (07/23/17 9:53 AM) Segs [45.0-75.0 %] 65.0 % (07/23/17 9:53 AM) Lymphocytes 15.5 % [20.0-40.0 %] *LOW* (07/23/17 9:53 AM) Monocytes [2.0-12.0 11.8 % %] (07/23/17 9:53 AM) Eosinophils [0.0-4.0 5.9 % %] *HI* (07/23/17 9:53 AM) Basophils [0.0-1.0 1.8 % %] *HI* (07/23/17 9:53 AM) Segs-Bands # 3.5 K/CMM [1.5-8.1 K/CMM] (07/23/17 9:53 AM) Lymphocytes # 0.8 K/CMM [1.0-5.5 K/CMM] *LOW* (07/23/17 9:53 AM) Monocytes # [0.0-0.8 0.6 K/CMM K/CMM] (07/23/17 9:53 AM) Eosinophils # 0.3 K/CMM [0.0-0.5 K/CMM] (07/23/17 9:53 AM) Basophils # [0.0-0.2 0.1 K/CMM K/CMM] (07/23/17 9:53 AM) Immunizations No data available for this section Procedures Procedure Date Related Diagnosis Body Site Status Cardiac angiogram 05/2014 Completed Placement of stent 2012 Completed Placement of stent 2010 Completed Procedure on back 2009 Completed Tubal ligation 1982 Completed Tonsillectomy 1961 Completed Mitral valve operation Completed Thoracentesis Completed Social History Social History Type Response Smoking Status Current every day smoker; Type: Cigarettes; Previous treatment: None; Ready to change: No; Exposure to Tobacco Smoke None; Cigarette Smoking Last 365 Days Yes; Reg Smoking Cessation Counseling No; Other Tobacco Frequency 1-2 cigarettes; entered on: 07/23/17 Assessment and Plan No data available for this section
[2018-05-25 12:20] VITALS: BP 113/68
[2018-05-25 13:43] VITALS: BP 154/130
[2018-05-25 13:58] VITALS: BP 143/79
[2018-05-25 14:13] VITALS: BP 122/70
[2018-05-25 14:28] VITALS: BP 118/69
[2018-05-25 14:43] VITALS: BP 116/77
== END | disposition home or self-care (01) ==
LOC: CATH LAB 11:55
PROVIDERS: ATTEND Internal Medicine
DX: I48.91 Unspecified atrial fibrillation (principal); I25.10 Atherosclerotic heart disease of native coronary artery without angina pectoris; I70.0 Atherosclerosis of aorta; J44.9 Chronic obstructive pulmonary disease, unspecified; I50.9 Heart failure, unspecified; N18.6 End stage renal disease; Z01.812 Encounter for preprocedural laboratory examination; Z86.73 Personal history of transient ischemic attack (TIA), and cerebral infarction without residual deficits; Z87.891 Personal history of nicotine dependence
CPT/HCPCS: 36415; 80053; 85025; 85610; 93005; 93312; 93320; 93325